=== PATIENT | female | born 1960 | race Two or more races ===

== ENCOUNTER 2017-05-21 11:45 | Emergency (ER) | payer OTHER ==
[~2017-05-21] VITALS: Ht 160 cm; Wt 65.8 kg
[2017-05-21] MEDS ORDERED: SODIUM CHLORIDE 0.9% 1,000 ML IV ONE (12:08)
[2017-05-21 13:08] LABS: Basophils # (auto) 0 uL; Basophils % (auto) 0.3 % (0.0-2.0); Eosinophils # (auto) 0.1 uL; Eosinophils % (auto) 1.2 % (0.0-7.0); Hematocrit 37.1 % (36.0-46.0); Hemoglobin 12.5 g/dL (12.2-16.2); Lymphocytes # (auto) 1.6 uL; Lymphocytes % (auto) 22.3 % (10.0-50.0); Mean Corpuscular Hemoglobin 29.9 pg (28.0-32.0); Mean Corpuscular Hgb Conc. 33.6 g/dL (32.0-36.0); Mean Platelet Volume 10.1 fL (6.9-10.8); Monocytes # (auto) 0.4 uL; Monocytes % (auto) 5.9 % (0.0-12.0); Neutrophils # (auto) 4.9 uL; Neutrophils % (auto) 70.3 % (37.0-80.0); Platelet Count (auto) 200 10^3/uL (140-450); Red Cell Distribution Width 13.6 % (11.8-14.3)
[2017-05-21 13:33] LABS: Albumin 3.4 g/dL (3.4-5.0); BUN/Creatinine Ratio 12.2; Bilirubin, Total 0.4 mg/dL (0.2-1.0); Calcium 8.4 mg/dL (8.5-10.1); Magnesium 2.2 mg/dL (1.6-2.6); Potassium 4.7 mmol/L (3.5-5.1); Total Protein 6.9 g/dL (6.4-8.2)
[2017-05-21 14:27] VITALS: BP 115/75
== END 2017-05-21 15:10 | disposition home or self-care (01) ==
LOC: ER 11:45
DX: J20.9 Acute bronchitis, unspecified (principal); R55 Syncope and collapse; R42 Dizziness and giddiness
CPT/HCPCS: 36415; 71010; 80053; 83735; 85025; 93005; 94761; 96360

== ENCOUNTER 2019-11-22 00:35 | Inpatient (IN) | payer MEDICAID, OTHER ==
[~2019-11-22] VITALS: Ht 154.9 cm; Wt 82.4 kg
[2019-11-22] VITALS (28 sets, daily range): BP systolic 93–129; BP diastolic 52–74
[2019-11-22 02:35] LABS: Basophils # (auto) 0 10 ^3/uL (0-0.2); Basophils % (auto) 0.2 % (0.0-2.0); Eosinophils # (auto) 0 10 ^3/uL (0-0.8); Eosinophils % (auto) 0.1 % (0.0-7.0); Hematocrit 38.6 % (36.0-46.0); Hemoglobin 12.9 g/dL (12.2-16.2); Lymphocytes # (auto) 1.5 10 ^3/uL (0.4-5.4); Lymphocytes % (auto) 25.3 % (10.0-50.0); Mean Corpuscular Hemoglobin 29.3 pg (28.0-32.0); Mean Corpuscular Hgb Conc. 33.3 g/dL (32.0-36.0); Monocytes # (auto) 0.6 10 ^3/uL (0-1.3); Monocytes % (auto) 10.3 % (0.0-12.0); Neutrophils # (auto) 3.7 10 ^3/uL (1.6-8.6); Neutrophils % (auto) 64.1 % (37.0-80.0); Nucleated Red Blood Cells % 0.1 %; Platelet Count (auto) 182 10^3/uL (140-450); Red Blood Cells 4.39 10^6/uL (4.0-5.20); Red Cell Distribution Width 14.4 % (11.8-14.3); White Blood Cell 5.7 10^3/uL (4.4-10.8)
[2019-11-22 02:38] LABS: Albumin 3.2 g/dL (3.4-5.0); BUN/Creatinine Ratio 15.7; Calcium 8.4 mg/dL (8.5-10.1); Potassium 4.1 mmol/L (3.5-5.1)
[2019-11-22 02:41] LABS: Bilirubin, Total 0.6 mg/dL (0.2-1.0); Total Protein 7.5 g/dL (6.4-8.2)
[2019-11-22] MEDS ORDERED: methylPREDNISolone SOD SUCC 125 MG/2 ML VL IV ONE (02:45)
[2019-11-22] MEDS ORDERED: cefTRIAXone 1GM/50ML D5W 50 ML IV ONE (02:45)
[2019-11-22] MEDS ORDERED: AZITHROMYCIN 500MG/ 250ML 250 ML IV ONE (02:45)
[2019-11-22] MEDS ORDERED: SODIUM CHLORIDE 0.9% 1,000 ML IV ONE (03:00)
[2019-11-22] MEDS ORDERED: dilTIAZem 25 MG/5 ML VIAL IV ONE (03:15)
[2019-11-22] MEDS ORDERED: dilTIAZem HCL 60 MG TAB PO ONE (03:15)
[2019-11-22] MEDS ORDERED: SODIUM CHLORIDE 0.9% 1,000 ML IV SCH (06:30)
[2019-11-22] MEDS ORDERED: ALBUMIN 5% 250 ML IV ONE (06:30)
[2019-11-22] MEDS ORDERED: ONDANSETRON HCL 4 MG/2 ML VIAL IV PRN (06:30)
[2019-11-22 07:03] LABS: Magnesium 2.3 mg/dL (1.6-2.6)
[2019-11-22 07:12] LABS: CRP High Sensitivity 13.5 mg/dL (< 0.3)
[2019-11-22] MEDS ORDERED: PANTOPRAZOLE 40 MG TAB PO ONE (07:15)
[2019-11-22] MEDS ORDERED: NITROGLYCERIN 0.4 MG SL TAB SL PRN (07:15)
[2019-11-22] MEDS ORDERED: MORPHINE SULF INJ 2 MG/ML SYRINGE 1ML IV PRN (07:15)
--- NOTE | 2019-11-22 09:40 | NUR ---
Telemetry admit from ER SYLVIA HARVEY admitted to Telemetry unit after SBAR received. Patient oriented to ARTIS ARTIS RN primary RN, unit, room, bed, and unit policies regarding patient care and visiting hours. Patient now on continuous telemetry monitoring, tele box # 14 and telemetry reading on arrival to unit is SR. Patient placed on bedside oxygen, weighed by bedscale and encouraged to call if they need something. All questions and concerns addressed, patient verbalized understanding.
[2019-11-22] MEDS ORDERED: DOXYCYCLINE 100MG/250ML 250 ML IV SCH (10:00)
[2019-11-22] MEDS ORDERED: ENOXAPARIN SOD 40 MG/0.4 ML SYRINGE SC SCH (10:00)
[2019-11-22] MEDS ORDERED: FAMOTIDINE 20 MG TAB PO SCH (10:00)
[2019-11-22] MEDS: CHOLECALCIFEROL (VITD3) 1,000UNIT=25mCg TAB PO SCH (11:14)
[2019-11-22] MEDS: ASCORBIC ACID 1,000 MG TAB PO SCH (11:14)
--- NOTE | 2019-11-22 11:45 | NUR ---
COVID Received positive results for covid-19. Notified MD Conner, new orders received. Orders read back and verified, will carry out new orders and cont to monitor patient.
--- NOTE | 2019-11-22 13:15 | NUR ---
PLACED PT ON OXYMIZER 15LPM, HR 96, RR 24, SPO2 92%. NOTIFIED RN OF CHANGES. ABG DRAWN, RESULTS TO FOLLOW. MDI BREATHING TX ADMINISTERED, NO ADVERSE REACTIONS NOTED.
[2019-11-22] MEDS ORDERED: methylPREDNISolone SOD SUCC 40 MG/ML VL IV ONE ×2 (13:30)
[2019-11-22] MEDS ORDERED: diphenhdrAMINE HCL 50 MG/1 ML VL IV ONE (13:30)
[2019-11-22] MEDS: ALBUTEROL SULF HFA 90MCG INH 200DOSE IN SCH ×2 (13:30→20:55)
[2019-11-22] MEDS ORDERED: TOCILIZUMAB 400 MG in SODIUM CHL 0.9% 80 ML IV ONE (13:30)
[2019-11-22] MEDS ORDERED: ACETAMINOPHEN 650 mg PER 20 mL UD PO ONE (13:30)
--- NOTE | 2019-11-22 13:50 | NUR ---
O2 Patient o2 saturations down to mid 80's despite 15L/min O2 Replacement. Called MD Conner to notify, per MD order stat ABG and call MD Breen, This nurs called MD Breen and updated him on patient status. Per MD Breen, place patient on non-rebreather mask, obtain ABG, Chest X-ray, actemra, remdesivir, solumedrol, and upgrade patient either to CHAR or ICU for high flow oxygen. Orders read back and verified, Obtained consent from MD Heck for Actemra and Remdesivir. Will carry out new orders and cont to monitor patient. Paged house sup regarding upgrade. Pending bed assignment at this time. Patient stable for now, premedicated for first dose of actemra and o2 sat is at 92 HR 105 RR 26.
[2019-11-22] MEDS ORDERED: REMDESIVIR 200 MG in NS 210ml LOADING DOSE ADULT IV ONE (17:00)
--- NOTE | 2019-11-22 17:09 | NUR ---
MD MD Conner at bedside, aware of patient status. New orders to DC Fluids received. Report called and endorsed to [facility] JHON White.
--- NOTE | 2019-11-22 17:24 | NUR ---
Transferred Patient transported to [facility] with JHON White. Patient taken via wheelchair on 15 L Oxymizer. Patient showed no signs of distress, sob, or pain at this time.
--- NOTE | 2019-11-22 17:25 | NUR ---
PATIENT TRANSFERRED VIA WHEEL CHAIR TO ROOM 262 [facility]. PATIENT IS ALERT AND ORIENTED. VITAL SIGNS STABLE, CALL LIGHT IN REACH, BED IN LOW POSITION. PATIENT PLACED ON HIGH FLOW BY RESPIRATORY PER MD ORDER SATURATIONS 91%. WILL CONTINUE TO MONITOR.
--- NOTE | 2019-11-22 17:25 | NUR ---
PT ARRIVED TO [facility] AND HAS BEEN PLACED ON HFNC WITH SETTINGS OF 70% FIO2 AND 40L FLOW. SPO2 SUSTAINED AT 91-92%. WATER LEVEL ADEQUATE FOR HEATED HUMIDIFICATION. WILL CONTINUE TO MONITOR PT AND ADJUST SETTINGS NEEDED.
--- NOTE | 2019-11-22 18:06 | NUR ---
RENDESIVIR MEDICATION STARTED PER MD ORDER AND PROTOCOL. CONSENT SIGNED BY PATIENT AND REVIEWED WITH NANCY BRIDGES RN AND ARTIS FERREIRA FROM TELEMETRY FLOOR IN [place]. PATIENT GIVEN [place] CONSENT TO REVIEW. PHARMACY GIVEN COPY AND ON PLACED IN CHART.
--- NOTE | 2019-11-22 18:15 | NUR ---
15 MINUTES INTO RENDESIVIR IVPB AND PATIENT HAS HAD NO NOTED ADVERSE REACTION. WILL CONTINUE TO MONITOR.
--- NOTE | 2019-11-22 19:00 | NUR ---
Opening Shift Note Assumed care of patient, awake and alert. No S/S of distress/SOB or pain. Instructed on POC and to call for assist PRN, will continue to monitor for changes Q1hr and PRN.
[2019-11-22] MEDS: DOXYCYCLINE 100 MG TAB/CAP PO SCH (20:55)
[2019-11-22] MEDS: methylPREDNISolone SOD SUCC 40 MG/ML VL IV SCH (20:55)
[2019-11-22] MEDS: ENOXAPARIN SOD 60 MG/0.6 ML SYRINGE SC SCH (20:56)
[2019-11-22] MEDS ORDERED: hydrOXYchloroQUINE SULFATE 200 MG TAB PO SCH (22:00)
--- NOTE | 2019-11-22 22:08 | NUR ---
FIO2 TITRATED TO 60%. SPO2 REMAINS AT 98%. MDI ADMINISTERED BY JHON SARAVIA WITH HOLDING CHAMBER.
[2019-11-23] VITALS (29 sets, daily range): BP systolic 90–116; BP diastolic 47–66
[2019-11-23 05:00] LABS: Basophils # (auto) 0 10 ^3/uL (0-0.2); Basophils % (auto) 0.1 % (0.0-2.0); Eosinophils # (auto) 0 10 ^3/uL (0-0.8); Lymphocytes # (auto) 1.2 10 ^3/uL (0.4-5.4); Lymphocytes % (auto) 18.7 % (10.0-50.0); Mean Corpuscular Hemoglobin 30.1 pg (28.0-32.0); Mean Corpuscular Hgb Conc. 34.3 g/dL (32.0-36.0); Monocytes # (auto) 0.5 10 ^3/uL (0-1.3); Monocytes % (auto) 7.3 % (0.0-12.0); Neutrophils # (auto) 4.8 10 ^3/uL (1.6-8.6); Neutrophils % (auto) 73.9 % (37.0-80.0); Nucleated Red Blood Cells % 0.1 %; Platelet Count (auto) 201 10^3/uL (140-450); Red Blood Cells 3.97 10^6/uL (4.0-5.20); Red Cell Distribution Width 14.5 % (11.8-14.3); White Blood Cell 6.6 10^3/uL (4.4-10.8)
[2019-11-23 05:21] LABS: Potassium 4.3 mmol/L (3.5-5.1)
[2019-11-23 05:31] LABS: Albumin 2.8 g/dL (3.4-5.0); BUN/Creatinine Ratio 15.7; Calcium 8.4 mg/dL (8.5-10.1)
[2019-11-23 05:39] LABS: Bilirubin, Total 0.3 mg/dL (0.2-1.0); Total Protein 6.6 g/dL (6.4-8.2)
[2019-11-23] MEDS: ALBUTEROL SULF HFA 90MCG INH 200DOSE IN SCH ×2 (06:00→22:26)
--- NOTE | 2019-11-23 07:45 | NUR ---
OPENING SHIFT NOTE: Received report from NOC RNWaldo. Assumed care of patient. Received patient resting in bed, connected to bedside monitor, alarms in place. Patient is on Novel Respiratory isolation for COVID-19. Patient is A&Ox4, primarily amharic speaking, understands little burmese. No s/s of distress noted and denies pain when asked. Patient on high flow O2 50L/80% lung sounds clear to diminished. Patient is using bedpan due to increased SOB with exertion. IV to left AC #20 with TKO NS at 20ml/hr. Bed in lowest position, rails x2 up and call light within reach. Updated on plan of care. Will continue to monitor q1hr/PRN.
--- NOTE | 2019-11-23 09:31 | NUR ---
T/C from Dr Breen. Orders received to add tests to morning labs. Will notify make up operator helper.
--- NOTE | 2019-11-23 10:45 | NUR ---
RT at bedside. Patient's O2 sats 88-89% on high flow 50L/80% fiO2, fiO2 increased to 100%. O2 sats 90-92%. RT to notify Dr Breen. Will continue to monitor.
[2019-11-23] MEDS: DOXYCYCLINE 100 MG TAB/CAP PO SCH ×2 (10:49→22:26)
[2019-11-23] MEDS: ENOXAPARIN SOD 60 MG/0.6 ML SYRINGE SC SCH ×2 (10:49→22:26)
[2019-11-23] MEDS: REMDESIVIR 100mg in NS 230ml DAILYx4DAYS (NO VENT) IV SCH (10:49)
[2019-11-23] MEDS: CHOLECALCIFEROL (VITD3) 1,000UNIT=25mCg TAB PO SCH (10:49)
[2019-11-23] MEDS: methylPREDNISolone SOD SUCC 40 MG/ML VL IV SCH ×2 (10:49→22:26)
[2019-11-23] MEDS: ASCORBIC ACID 1,000 MG TAB PO SCH (10:50)
--- NOTE | 2019-11-23 11:49 | NUR ---
MD Dr Adams at bedside. Updated on Dr Breen's orders. No new orders received.
[2019-11-23] MEDS ORDERED: methylPREDNISolone SOD SUCC 40 MG/ML VL IV ONE (12:30)
[2019-11-23] MEDS ORDERED: ACETAMINOPHEN 650 mg PER 20 mL UD PO ONE (12:30)
[2019-11-23] MEDS ORDERED: diphenhdrAMINE HCL 50 MG/1 ML VL IV ONE (12:30)
[2019-11-23] MEDS ORDERED: TOCILIZUMAB 400 MG in SODIUM CHL 0.9% 80 ML IV ONE (13:00)
--- NOTE | 2019-11-23 18:27 | NUR ---
RT NOTE ROUTINE HFNC CHECK. WATER LEVEL ADEQUATE. CONT ORDERED Addendum: 11/23/19 at 1914 by Wendy Stevens RT Amended: Links added.
[2019-11-23] MEDS ORDERED: guaiFENesin-DM 100/10mg/5ml SYR PO PRN (19:15)
--- NOTE | 2019-11-23 19:15 | NUR ---
END OF SHIFT NOTE: Report given to NOC RNCinyd. Endorsed care of patient. Patient remains on high flow at 50L 100% fiO2 with O2 sats 88%. Patient continues to use bedpan due to increasingly SOB with exertion.
--- NOTE | 2019-11-23 19:30 | NUR ---
OPENING NOTE REPORT RECEIVED FROM JHON CANNON PATIENT IS ON ISOLATION FOR COVID -19. PATIENT CONNECTED TO CONTINUOUS MONITORS, HEART RATE IN 80'S, SPO2 AT 89% ON HI FLOW OXYGEN 50L FIO2 100%. PATIENT IS PRIMARILY PANAMANIAN SPEAKING, ABLE TO VERBALIZE ALL NEEDS. IV TO RIGHT AC RUNNING NS TKO. PHYSICAL ASSESSMENT DONE-SEE INTERVENTIONS. POC DISCUSSED WITH PATIENT, ALL QUESTIONS ANSWERED. CALL LIGHT WITHIN REACH. EDUCATED PATIENT ON HOW TO USE PHONE TO CALL NURSES STATION.
--- NOTE | 2019-11-23 20:15 | NUR ---
BM/ DESAT PATIENT ASSISTED TO BEDSIDE COMMODE. PATIENT BEGAN TO DESAT INTO HIGH 70'S. PATIENT BACK IN TO BED, HI FLOW OXYGEN ADJUSTED TO 60L ON 100%FIO2. PATIENT EDUCATED TO TAKE LONG, DEEP BREATHS. PATIENT O2 LEVEL GRADUALLY CAME BACK UP TO 89% AND SUSTAINING. EDUCATED PATIENT THAT FROM NOW ON BEDPAN WILL BE USED TO DECREASE WORK OF BREATHING AND PREVENT DESATURATION. PATIENT VERBALIZED UNDERSTANDING
[2019-11-23] MEDS ORDERED: hydrOXYchloroQUINE SULFATE 200 MG TAB PO SCH (22:00)
[2019-11-24] VITALS (15 sets, daily range): BP systolic 98–129; BP diastolic 8–70
[2019-11-24] MEDS: TEMAZEPAM 15 MG CAP PO PRN ×2 (00:26→21:26)
--- NOTE | 2019-11-24 02:19 | NUR ---
DESATURATION PATIENT FOUND WITH HI FLOW CANNULA OFF. PATIENT BEGAN PANICKING, OXYGEN SATURATION LEVEL IN 60'S. RT BERNICE AT BEDSIDE TRYING TO CALM PATIENT DOWN AND PUT PATIENT BACK ON HI FLOW OXYGEN. BY THE TIME THIS RN ENTERED ROOM, PATIENT VISIBLY MORE CALM, HI FLOW OXYGEN NOW AT 65L FIO2 100%. OXYGEN STEADILY INCREASED TO 91%. PATIENT REPOSITIONED INTO HIGH FOWLERS. PATIENT NOW CALM, EYES CLOSED. PATIENT DENIES ANY PAIN OR DISTRESS AT THIS TIME. WILL CONTINUE TO MONITOR CLOSELY.
--- NOTE | 2019-11-24 02:25 | NUR ---
RT NOTE PT WAS OFF HFNC WHEN RT CAME TO ASSESS. RT AT PT BEDSIDE AFTER PROPER PPE DONNED. PT WAS THRASHING AROUND AND SAYING NO. IT APPEARS PT MAY HAVE HAD A BAD DREAM. RT WAS ABLE TO CALM PT AND PLACE O2 BACK ON PT. FLOW WAS INCREASED TO 65LPM, JHON AGUILLON AT BEDSIDE AND NOTIFIED. WATER LEVEL IS ADEQUATE AT THIS TIME. CONT ORDERED Addendum: 11/24/19 at 0246 by Wendy Stevens RT Amended: Links added.
--- NOTE | 2019-11-24 04:17 | NUR ---
PAGED RE: PATIENT DESATURATION, ON HI FLOW 70L AND FIO2 100%. SATURATION FLUCTUATING IN LOW 80'S. PATIENT DOES NOT APPEAR TO BE IN ANY DISTRESS AT THIS TIME WILL WAIT FOR CALL BACK
--- NOTE | 2019-11-24 04:27 | NUR ---
RT AT BEDSIDE PLACING PATIENT ON CPAP
--- NOTE | 2019-11-24 04:30 | NUR ---
RT NOTE PT PLACED ON CPAP #B1 WITH SMALL MASK PER DR REAL PROGRESS NOTES. DR REAL WAS PAGED BY JHON HODGSON. PT WAS HOVERING WITH SATS FROM 78-82 AT BEST ON 70L AND 100% HFNC. PT APPEARS TO TOLERATE CPAP WELL. WILL WEAN TOLERATED. POX INCREASED TO 92% ON CPAP. CONT ORDERED Addendum: 11/24/19 at 0453 by Wendy Stevens RT Amended: Links added.
[2019-11-24 04:36] LABS: Potassium 4.5 mmol/L (3.5-5.1)
[2019-11-24 04:40] LABS: Albumin 2.8 g/dL (3.4-5.0); BUN/Creatinine Ratio 22.5; Calcium 8.2 mg/dL (8.5-10.1)
[2019-11-24 04:43] LABS: Bilirubin, Total 0.4 mg/dL (0.2-1.0); Total Protein 6.3 g/dL (6.4-8.2)
--- NOTE | 2019-11-24 04:45 | NUR ---
CPAP PATIENT TOLERATING CPAP WELL. SPO2 NOW 90-92%.
--- NOTE | 2019-11-24 05:00 | NUR ---
AM CARE UNABLE TO GIVE PATIENT BED BATH DUE TO DESATURATION WITH ANY EXERTION. PATIENT UNABLE TO TOLERATE MOVEMENT AT THIS TIME. PATIENT ON CPAP AND TOLERATING WELL SHE SLEEPS. SPO2 AT 93% AT THIS TIME.
[2019-11-24] MEDS: ALBUTEROL SULF HFA 90MCG INH 200DOSE IN SCH ×3 (05:49→22:10)
--- NOTE | 2019-11-24 06:25 | NUR ---
RECEIVED PT FROM PROJECT FACILITATOR RT. PT IS ON BIPAP VISION B1 ON CPAP MODE, FITTED WITH SIZE SMALL FACIAL MASK. CHECKED SKIN INTEGRITY, REDNESS NOTED BUT NO BREAKDOWN. WILL PLACE PROTECTIVE GEL OVER NOSE. BREATH SOUNDS DIM WHEEZING BILATERALLY, MDI BREATHING TX WAS ADMINISTERED BY RN. ALARMS SET AND AUDIBLE. PT RESTING COMFORTABLY IN BED, TACHYPNEIC BUT NOT IN DISTRESS, SAYS SHE IS FEELING FINE. ATTEMPTED TO TITRATE FIO2 DOWN, BUT PT DESAT TO 89%. PLACED FIO2 BACK TO 100%, PT TOLERATING WITH SPO2 MAINTAINING AT 91-92%. WILL CONTINUE TO MONITOR.
--- NOTE | 2019-11-24 07:18 | NUR ---
CLOSING PATIENT ON CONTINUOUS MONITORS AND CPAP, SPO2 AT 92%, NO SIGNS OF RESPIRATORY DISTRESS NOTED. CARE ENDORSED TO DAYSHIFT JHON MORA. CALL LIGHT WITHIN REACH
--- NOTE | 2019-11-24 07:30 | NUR ---
OPENING SHIFT NOTE: Received report from NOC RNCindy. Assumed care of patient. Received patient resting in bed, connected to bedside monitor, alarms in place. Patient is on Novel Respiratory isolation for COVID-19. Patient is A&Ox4, primarily malawian speaking, understands little turkish. No s/s of distress noted and denies pain when asked. Patient on CPAP 12 fiO2 100%, lung sounds clear to diminished. Patient is using bedpan due to increased SOB with exertion. IV to left AC #20 is saline locked, flushes and is patent. Bed in lowest position, rails x2 up and call light within reach. Updated on plan of care. Will continue to monitor q1hr/PRN.
--- NOTE | 2019-11-24 08:38 | NUR ---
Called into patient room, patient had disconnected CPAP tubing from mask and machine. Reconnected tubing. O2 sats ~70% and patient tachypneic 40s. RN assisted to help calm patient down. RT soon at bedside. After ~5minutes O2 sats 95% and RR 20s. RT at bedside to try to connect patient back to high flow O2.
--- NOTE | 2019-11-24 08:45 | NUR ---
TOOK PT OFF CPAP AND PLACED ON HIGH FLOW NASAL CANNULA TO EAT BREAKFAST. ON SETTINGS 70LPM, FIO2 100%. HR 121, RR 36, SPO2 90%. RN AWARE OF CHANGES. WILL CONTINUE TO MONITOR.
--- NOTE | 2019-11-24 08:56 | NUR ---
T/C from Dr Breen. Updated MD on overnight events. Orders received.
--- NOTE | 2019-11-24 10:00 | NUR ---
CPAP PLACED PT BACK ON CPAP +[id number], FIO2 100%. ALARMS SET AND AUDIBLE. NO SKIN BREAKDOWN NOTED AT THIS TIME. ABG TO FOLLOW IN ONE HOUR. NOTIFIED RN OF CHANGES. WILL CONTINUE TO MONITOR.
[2019-11-24] MEDS: REMDESIVIR 100mg in NS 230ml DAILYx4DAYS (NO VENT) IV SCH (10:43)
[2019-11-24] MEDS: methylPREDNISolone SOD SUCC 40 MG/ML VL IV SCH ×2 (10:43→21:25)
[2019-11-24] MEDS: ENOXAPARIN SOD 60 MG/0.6 ML SYRINGE SC SCH ×2 (10:44→21:25)
--- NOTE | 2019-11-24 10:44 | NUR ---
MEDICATIONS Held 1000 oral medication due to CPAP. Will administer when patient is off CPAP eating lunch.
--- NOTE | 2019-11-24 11:10 | NUR ---
ASAD DRAWN, RESULTS REPORTED TO DR REAL.
--- NOTE | 2019-11-24 11:20 | NUR ---
MD Dr Breen at bedside. No new orders received.
--- NOTE | 2019-11-24 13:25 | NUR ---
TOOK PT OFF BIPAP TO EAT LUNCH, PLACED ON HIGH FLOW NASAL CANNULA, 60LPM, FIO2 100%. PT TOLERATING WELL, NO SKIN BREAKDOWN NOTED. HEATER WATER LEVEL ADEQUATE. HR , RR 26, SPO2 92%. MDI BREATHING TX ADMINISTERED, NO ADVERSE REACTIONS NOTED. BREATH SOUNDS DIMINISHED T/O. RN AT BEDSIDE ADMINISTERING MEDICATIONS, RN AWARE OF CHANGES. WILL CONTINUE TO MONITOR.
[2019-11-24] MEDS: ASCORBIC ACID 1,000 MG TAB PO SCH (13:30)
[2019-11-24] MEDS: DOXYCYCLINE 100 MG TAB/CAP PO SCH ×2 (13:30→21:26)
[2019-11-24] MEDS ORDERED: FUROSEMIDE 40 MG/4 ML VIAL IV ONE (13:30)
[2019-11-24] MEDS: CHOLECALCIFEROL (VITD3) 1,000UNIT=25mCg TAB PO SCH (13:30)
--- NOTE | 2019-11-24 15:50 | NUR ---
PT BACK ON CPAP PT DESATTING ON HFNC TO 77% WITH INCREASED WOB. PLACED PT BACK ON CPAP +[id number], FIO2 100%. PT TOLERATING WELL, NOW LAYING BACK IN BED WITH LESS WOB, TOLERATING WELL. HR 91, RR 24, SPO2 92%, BP 124/57. RN AT BEDSIDE AND AWARE OF CHANGES. WILL CONTINUE TO MONITOR.
--- NOTE | 2019-11-24 18:45 | NUR ---
Respiratory note: At bedside at this time, pt Urdu speaker. Pt was on cpap changed to HFNC to eat dinner. HFNC connected to red o2 and medical air wall source. Alarms are audible. Ambu bag and mask at bedside. Pt had to go pee before dinner, assisted pt to bedside commode and back to bed. Pt desated upon move back to bed, steadily increased again with coaching appropriate breathing techniques. No other changes made will continue to monitor.
--- NOTE | 2019-11-24 18:56 | NUR ---
END OF SHIFT NOTE: Report given to NOC RNNereida. Endorsed care of patient. Patient placed back on high flow at 70L 100% fiO2 with O2 sats 95%. Patient was able to use BSC today with minimal desaturation and was able to recover quickly. Patient has been alternating between CPAP and high flow for meals.
[2019-11-24] MEDS: ACETAMINOPHEN 325 MG TAB PO PRN (22:10)
--- NOTE | 2019-11-24 23:20 | NUR ---
Respiratory note: Paged to bedside. pt experiencing more episodes of desaturation. Communication with pts RN Nereida luther, agreed pt should be placed on cpap. Pox 84-86%. Entered room to place pt on cpap.
--- NOTE | 2019-11-24 23:20 | NUR ---
Respiratory note: Placed on bipap B1 unit, using cpap mode of [id number] as ordered. Unit connected to red outlet and o2 source alarms are se and audible, Ambu bag and mask a bedside. Bs are fine course. Will continue to monitor q2h and as needed. JHON Padron aware.
[2019-11-25] VITALS (13 sets, daily range): BP systolic 99–119; BP diastolic 56–70
--- NOTE | 2019-11-25 04:10 | NUR ---
Respiratory note: ENTERED PTS ROOM TO PLACE PT BACK ON HFNC FOR PT COMFORT. RN MATEO AWARE. WILL HAVE DAY SHIFT CONTINUE TO POC.
[2019-11-25] MEDS: ALBUTEROL SULF HFA 90MCG INH 200DOSE IN SCH ×3 (06:20→22:27)
--- NOTE | 2019-11-25 06:48 | NUR ---
Pt has remained stable this shift. Was able to be on high flow until approx 2300 and then placed on Cpap. Pt put back on high flow at 0430 and is tolerating well. No S/S of distress although needs time to recover after using BSC. Otherwise has remained stable.
[2019-11-25 07:40] LABS: BUN/Creatinine Ratio 31.6; Calcium 8.4 mg/dL (8.5-10.1); Potassium 3.8 mmol/L (3.5-5.1)
[2019-11-25 07:42] LABS: Bilirubin, Total 0.6 mg/dL (0.2-1.0); Total Protein 6.4 g/dL (6.4-8.2)
--- NOTE | 2019-11-25 08:30 | NUR ---
OPEN RECEIVED REPORT FROM NIGHT RN, MATEO. ASSUMED CARE OF CHAR PATIENT, FULL CODE STATUS. PATIENT + COVID, DROPLET ISOLATION AT THIS TIME. PATIENT A & O X4 CALM AND FOLLOWS COMMANDS. NO PAIN AT THIS TIME. PATIENT ON HIGH FLOW OXYGEN AT 70 LITERS, FIO2 AT 100% . PATIENT DE-SATS TO MID 70'S UPON EXERTION, ESPECIALLY WHEN USING BSC. WILL ENCOURAGE PATIENT TO USE BED [place], FOR FUTURE PLANS. PATIENT GIVEN BREAKFAST. SEE DISTRICT CUSTOMS DIRECTOR AND V/S FLOW SHEET FOR FURTHER PATIENT INFORMATION. SKIN REMAINS INTACT, PATIENT ABLE TO TURN SELF. IV TO RIGHT AC #20G PATENT, DRESSING CDI. WILL CONTINUE TO MONITOR.
[2019-11-25] MEDS: CHOLECALCIFEROL (VITD3) 1,000UNIT=25mCg TAB PO SCH (09:28)
[2019-11-25] MEDS: ENOXAPARIN SOD 60 MG/0.6 ML SYRINGE SC SCH ×2 (09:28→21:28)
[2019-11-25] MEDS: methylPREDNISolone SOD SUCC 40 MG/ML VL IV SCH ×2 (09:28→21:27)
[2019-11-25] MEDS: ASCORBIC ACID 1,000 MG TAB PO SCH (09:28)
[2019-11-25] MEDS: DOXYCYCLINE 100 MG TAB/CAP PO SCH ×2 (09:28→21:28)
[2019-11-25] MEDS: REMDESIVIR 100mg in NS 230ml DAILYx4DAYS (NO VENT) IV SCH (09:28)
--- NOTE | 2019-11-25 10:08 | NUR ---
DR. REAL AT BEDSIDE: ORDERS MD UPDATED ON PT'S STATUS, LABS AND POC FOR TODAY. CXR TAKEN EARLIER TODAY. MD SHOWN CXR AT THIS TIME. ORDERS GIVEN AND TO BE CARRIED OUT. MD AT PT'S BEDSIDE, ASSESSING PATIENT AT THIS TIME. WILL CONTINUE TO MONITOR.
[2019-11-25] MEDS ORDERED: FUROSEMIDE 40 MG/4 ML VIAL IV ONE (12:00)
--- NOTE | 2019-11-25 12:57 | NUR ---
DR. SOLO AT BEDSIDE: ORDERS MD UPDATED ON PT'S CURRENT STATUS, LABS, AND POC FOR TODAY. ORDERS GIVEN AND TO BE CARRIED OUT. WILL CONTINUE TO MONITOR. MD ASSESSING PATIENT AT BEDSIDE AT THIS TIME. PROPER PPE USED.
[2019-11-25] MEDS: POTASSIUM CHL 20 Meq TABLET PO SCH ×2 (13:26→21:28)
--- NOTE | 2019-11-25 14:42 | NUR ---
Nutrition Assessment Notes Please refer to link for full assessment notes. Est Energy needs: 2501-8602 kcals (20-23 kcal/kgBW) Est Protein needs: 50-62 gms/day (0.8-1.0 gm/kgBW) Will continue to monitor and reassess prn. Addendum: 11/25/19 at [address] Amended: Links added.
[2019-11-25] MEDS: FUROSEMIDE 40 MG/4 ML VIAL IV SCH (18:31)
--- NOTE | 2019-11-25 18:59 | NUR ---
RT NOTE ROUTINE HFNC CHECK DONE. CONT ORDERED Addendum: 11/25/19 at 1900 by Wendy Stevens RT Amended: Links added.
[2019-11-25] MEDS: TEMAZEPAM 15 MG CAP PO PRN (21:27)
[2019-11-25] MEDS: ACETAMINOPHEN 325 MG TAB PO PRN (22:29)
--- NOTE | 2019-11-25 22:47 | NUR ---
RT NOTE ROUTINE HFNC CHECK DONE. MDI GIVEN BY JHON GALINDO WITH OTHER NOC MEDS. Addendum: 11/26/19 at 0125 by Wendy Stevens RT Amended: Links added.
[2019-11-26] VITALS (12 sets, daily range): BP systolic 96–115; BP diastolic 43–69
--- NOTE | 2019-11-26 03:05 | NUR ---
RT NOTE ROUTINE HFNC CHECK DONE. WATER LEVEL IS AT HALF. CONT ORDERED Addendum: 11/26/19 at 0406 by Wendy Stevens RT Amended: Links added.
[2019-11-26 04:38] LABS: Basophils # (auto) 0 10 ^3/uL (0-0.2); Basophils % (auto) 0.2 % (0.0-2.0); Eosinophils # (auto) 0 10 ^3/uL (0-0.8); Hematocrit 41.1 % (36.0-46.0); Hemoglobin 13.9 g/dL (12.2-16.2); Lymphocytes # (auto) 0.6 10 ^3/uL (0.4-5.4); Lymphocytes % (auto) 5.9 % (10.0-50.0); Mean Corpuscular Hemoglobin 29.5 pg (28.0-32.0); Mean Corpuscular Hgb Conc. 33.7 g/dL (32.0-36.0); Mean Corpuscular Volume 87.4 fL (80.0-100.0); Monocytes # (auto) 0.4 10 ^3/uL (0-1.3); Monocytes % (auto) 3.4 % (0.0-12.0); Neutrophils # (auto) 9.9 10 ^3/uL (1.6-8.6); Neutrophils % (auto) 90.5 % (37.0-80.0); Nucleated Red Blood Cells % 0.1 %; Platelet Count (auto) 259 10^3/uL (140-450); Red Cell Distribution Width 14.3 % (11.8-14.3)
[2019-11-26 04:48] LABS: Potassium 4.3 mmol/L (3.5-5.1)
[2019-11-26 04:53] LABS: Albumin 2.9 g/dL (3.4-5.0); Bilirubin, Total 0.6 mg/dL (0.2-1.0); Calcium 8.4 mg/dL (8.5-10.1); Total Protein 6.5 g/dL (6.4-8.2)
[2019-11-26] MEDS: ALBUTEROL SULF HFA 90MCG INH 200DOSE IN SCH ×3 (05:50→22:01)
[2019-11-26] MEDS: FUROSEMIDE 40 MG/4 ML VIAL IV SCH ×2 (05:50→18:30)
[2019-11-26] MEDS: ACETAMINOPHEN 325 MG TAB PO PRN ×2 (05:51→21:44)
--- NOTE | 2019-11-26 06:42 | NUR ---
Pt has remained stable this shift. Has been on Hi Flow the entire shift and tolerated well with only a couple of periods of desating down to 82% for a short period of time. Uses bedside commode safely. IV remains patent. No S/S of distress although has periodic headaches. Tylenol appears to be adequate for the headache pain. Pt received a bed bath and linen change. Will give report to AM shift.
--- NOTE | 2019-11-26 07:45 | NUR ---
OPENING SHIFT NOTE: Received report from NOC RN, Nereida. Assumed care of patient. Received patient resting in bed, connected to bedside monitor, alarms in place. Patient is on Novel Respiratory isolation for COVID-19. Patient is A&Ox4, primarily telugu speaking, understands little citizen of [place]. No s/s of distress noted and denies pain when asked. Patient on Hi Flow 70L 100%, lung sounds clear to diminished. Patient is using BSC with minimal distress. IV to left AC #20 is saline locked, flushes and is patent. Bed in lowest position, rails x2 up and call light within reach. Updated on plan of care. Will continue to monitor q1hr/PRN.
--- NOTE | 2019-11-26 10:45 | NUR ---
MD Dr Breen at bedside to see patient.
[2019-11-26] MEDS: POTASSIUM CHL 20 Meq TABLET PO SCH ×2 (11:15→20:00)
[2019-11-26] MEDS: ASCORBIC ACID 1,000 MG TAB PO SCH (11:15)
[2019-11-26] MEDS: CHOLECALCIFEROL (VITD3) 1,000UNIT=25mCg TAB PO SCH (11:15)
[2019-11-26] MEDS: DOXYCYCLINE 100 MG TAB/CAP PO SCH ×2 (11:15→20:00)
[2019-11-26] MEDS: methylPREDNISolone SOD SUCC 40 MG/ML VL IV SCH ×2 (11:15→20:00)
[2019-11-26] MEDS: REMDESIVIR 100mg in NS 230ml DAILYx4DAYS (NO VENT) IV SCH (11:15)
[2019-11-26] MEDS: ENOXAPARIN SOD 60 MG/0.6 ML SYRINGE SC SCH ×2 (11:15→20:00)
--- NOTE | 2019-11-26 16:00 | NUR ---
MD Dr Adams to see patient. No new orders.
--- NOTE | 2019-11-26 18:56 | NUR ---
END OF SHIFT NOTE: Patient sitting up in bed eating dinner. Patient with no s/s of distress noted.Patient remains on hi flow at 60L 100% with O2 sats 96%. Patient is tolerating BSC with standby assist. Patient with IV to right AC #20 that is patent and flushes. Report to be given to NOC Nereida FERREIRA.
[2019-11-26] MEDS: TEMAZEPAM 15 MG CAP PO PRN (21:44)
[2019-11-27] VITALS (10 sets, daily range): BP systolic 91–124; BP diastolic 57–65
[2019-11-27 03:25] LABS: Basophils # (auto) 0 10 ^3/uL (0-0.2); Basophils % (auto) 0.1 % (0.0-2.0); Eosinophils # (auto) 0 10 ^3/uL (0-0.8); Hematocrit 43.7 % (36.0-46.0); Hemoglobin 14.6 g/dL (12.2-16.2); Lymphocytes # (auto) 0.7 10 ^3/uL (0.4-5.4); Lymphocytes % (auto) 5.9 % (10.0-50.0); Mean Corpuscular Hgb Conc. 33.4 g/dL (32.0-36.0); Mean Corpuscular Volume 86.9 fL (80.0-100.0); Monocytes # (auto) 0.4 10 ^3/uL (0-1.3); Monocytes % (auto) 3.8 % (0.0-12.0); Neutrophils # (auto) 10.1 10 ^3/uL (1.6-8.6); Neutrophils % (auto) 90.2 % (37.0-80.0); Nucleated Red Blood Cells % 0.1 %; Platelet Count (auto) 306 10^3/uL (140-450); Red Blood Cells 5.03 10^6/uL (4.0-5.20); Red Cell Distribution Width 14.5 % (11.8-14.3); White Blood Cell 11.2 10^3/uL (4.4-10.8)
[2019-11-27 03:44] LABS: Albumin 3.4 g/dL (3.4-5.0); Calcium 9.2 mg/dL (8.5-10.1); Potassium 4.7 mmol/L (3.5-5.1)
[2019-11-27 03:47] LABS: BUN/Creatinine Ratio 35.4; Bilirubin, Total 0.6 mg/dL (0.2-1.0); Total Protein 6.9 g/dL (6.4-8.2)
--- NOTE | 2019-11-27 05:57 | NUR ---
Respiratory note: RECEIVED PATIENT ON HFNC WITH THE ABOVE CHARTED SETTINGS. SPO2 91%. PATIENT IS RESTING COMFORTABLY AND TOLERATING HFNC WELL. NO INDICATION TO MAKE ANY ADJUSTMENTS AT THIS TIME. WILL CONTINUE TO ASSESS PATIENT FOR TITRATIONS.
[2019-11-27] MEDS: ALBUTEROL SULF HFA 90MCG INH 200DOSE IN SCH ×3 (06:27→22:50)
[2019-11-27] MEDS: FUROSEMIDE 40 MG/4 ML VIAL IV SCH (06:27)
--- NOTE | 2019-11-27 07:23 | NUR ---
Pt remained stable this shift. Seems to be doing better this shift compared to earlier this weekend. No S/S of distress. Report given, care endorsed.
--- NOTE | 2019-11-27 07:45 | NUR ---
OPENING SHIFT NOTE: Received report from NOC RNNereida. Assumed care of patient. Patient received lying in bed connected to bedside monitor with alarms in place. Patient with no s/s of distress and denies pain. Patient on high flow oxygen at 60L 100% with sats in the mids 90s. Patient with IV to right AC #20 that is saline locked and patent. Patient is getting up to BSC with stand by assist. Bed in lowest position, rails x2 up and call light within reach. Updated on plan of care. Will continue to monitor.
[2019-11-27] MEDS: POTASSIUM CHL 20 Meq TABLET PO SCH (09:54)
[2019-11-27] MEDS: methylPREDNISolone SOD SUCC 40 MG/ML VL IV SCH ×2 (09:54→21:58)
[2019-11-27] MEDS: DOXYCYCLINE 100 MG TAB/CAP PO SCH ×2 (09:54→21:58)
[2019-11-27] MEDS: CHOLECALCIFEROL (VITD3) 1,000UNIT=25mCg TAB PO SCH (09:55)
[2019-11-27] MEDS: ENOXAPARIN SOD 60 MG/0.6 ML SYRINGE SC SCH ×2 (09:55→21:58)
[2019-11-27] MEDS: ASCORBIC ACID 1,000 MG TAB PO SCH (09:55)
--- NOTE | 2019-11-27 13:30 | NUR ---
MD Dr Breen at bedside to see patient.
--- NOTE | 2019-11-27 15:00 | NUR ---
RT at bedside. Patient's O2 decreased to 50L 100%. Patient tolerating well.
--- NOTE | 2019-11-27 16:26 | NUR ---
MD Dr Adams at bedside to see patient. New orders received.
--- NOTE | 2019-11-27 18:51 | NUR ---
END OF SHIFT NOTE: Patient sitting up in bed eating dinner. Patient with no s/s of distress noted. Patient now on hi flow at 50L 100% with O2 sats 96%. Patient is tolerating BSC with standby assist. Patient with IV to right AC #20 that is patent and flushes. Report to be given to Santos GIL RN.
--- NOTE | 2019-11-27 19:10 | NUR ---
OPENING SHIFT RECEIVED REPORT FROM DAY SHIFT RN. ASSUMED CARE OF PATIENT. PATIENT IN BED RESTING WITH NO SIGNS OR SYMPTOMS OF SOB, PAIN OR DISTRESS. CURRENTLY ON HIGH FLOW NASAL CANNULA 50L / 100% FI02, 02 SAT - 93%. RIGHT ANTECUBITAL IV - CLEAN/DRY/INTACT. UPDATED PATIENT ON PLAN OF CARE. REPOSITIONED FOR COMFORT. BED IN LOWEST POSITION, SIDE RAILS UP X2, CALL LIGHT WITHIN REACH. WILL CONTINUE TO MONITOR.
--- NOTE | 2019-11-27 21:30 | NUR ---
IV REMOVED / IV INSERTED PATIENT COMPLAINING OF TENDERNESS AND PAIN IN RIGHT ANTECUBITAL IV; IV REMOVED - CATHETER INTACT. RIGHT WRIST 20G IV INSERTED. PATIENT TOLERATED WELL. WILL CONTINUE TO MONITOR.
[2019-11-27] MEDS: TEMAZEPAM 15 MG CAP PO PRN (22:47)
[2019-11-28] VITALS (12 sets, daily range): BP systolic 90–108; BP diastolic 54–68
[2019-11-28 04:01] LABS: Albumin 3.1 g/dL (3.4-5.0); BUN/Creatinine Ratio 39.2; Calcium 8.8 mg/dL (8.5-10.1); Potassium 4.8 mmol/L (3.5-5.1)
[2019-11-28 04:08] LABS: Bilirubin, Total 0.7 mg/dL (0.2-1.0); Total Protein 6.6 g/dL (6.4-8.2)
--- NOTE | 2019-11-28 05:55 | NUR ---
MORNING CARE PERFORMED MORNING CARE WITH CCT. PATENT BATHED WITH CHG WIPES AND WASH CLOTHS TO THE FACE. PARTIAL LINEN CHANGE AND GOWN CHANGED. ORAL AND LAM CARE PERFORMED. REPOSITIONED FOR COMFORT, SKIN REASSESSED AT THIS TIME. BED IN LOWEST POSITION, SIDE RAILS UP X2. CALL LIGHT WITHIN REACH. WILL CONTINUE TO MONITOR.
[2019-11-28] MEDS: ALBUTEROL SULF HFA 90MCG INH 200DOSE IN SCH ×3 (06:19→22:56)
--- NOTE | 2019-11-28 07:23 | NUR ---
END OF SHIFT REPORT GIVEN TO DAY SHIFT RN. CARE ENDORSED.
--- NOTE | 2019-11-28 07:50 | NUR ---
OPENING Report received from Santos GIL RN. Care initiated and initial assessment complete.
--- NOTE | 2019-11-28 09:55 | NUR ---
EPISODE OF EPISTAXIS Patient briefly bleeding from her nose. Bleeding stopped shortly after start. Provided patient with tissues and education. Called RT to the bedside.
[2019-11-28] MEDS ORDERED: POTASSIUM CHL 10 Meq TABLET PO SCH (10:00)
[2019-11-28] MEDS ORDERED: FUROSEMIDE 40 MG/4 ML VIAL IV SCH (10:00)
--- NOTE | 2019-11-28 10:00 | NUR ---
RT BEDSIDE Patient refused to go on BiPap to alleviate her nose. Patient understands high flow can cause nose bleeds. Per the RT she educated patient on turning herself and pronating, however, patient feels too weak and does not want to pronate d/t fears of being pronated by herself in her room.
[2019-11-28] MEDS: methylPREDNISolone SOD SUCC 40 MG/ML VL IV SCH ×2 (10:48→21:08)
[2019-11-28] MEDS: DOXYCYCLINE 100 MG TAB/CAP PO SCH ×2 (10:48→21:07)
[2019-11-28] MEDS: CHOLECALCIFEROL (VITD3) 1,000UNIT=25mCg TAB PO SCH (10:49)
[2019-11-28] MEDS: ENOXAPARIN SOD 60 MG/0.6 ML SYRINGE SC SCH ×2 (10:49→21:07)
[2019-11-28] MEDS: ASCORBIC ACID 1,000 MG TAB PO SCH (10:49)
--- NOTE | 2019-11-28 14:10 | NUR ---
PRONATING Patient pronating herself. Assessed patients comfort states, she states she is doing okay. No s/s of distress noted.
--- NOTE | 2019-11-28 14:28 | NUR ---
Nutrition Followup Note Wt: 60.4 kg Pt`s covid +ve unable to talk to pt. pt is currently on regular diet with inadequate PO of 50% x 5 per RN doc Est Energy needs: 1306-0858 kcals (20-23 kcal/kgBW), Est Protein needs: 50-62 gms/day (0.8-1.0 gm/kgBW). Will continue to monitor and reassess prn. Labs: BUN 38 H, CO2 34 H, ALB 3.1 L, GLU 166 H BM: Pt had 1 BM on 11/20 per RN doc Skin: BS 20 low risk, full wound care details in RN doc PES: 1) Inadequate oral intake aeb pt with ave of 38% PO intake over 4 meals r/t pt with a poor appetite 2) Altered nutrition related lab values aeb hyperglycemia, hypocalcemia, elev LFTs, elev Alk Phos, mod hypoalbuminemia r/t current medical condition Comments Will continue to closely monitor pertinent labs, PO intake and skin status prn. Will followup in 3-5 days 1) Continue to closely monitor pt PO intake to meet at least 75% of meals. 2) consider ensure enlive 1 carton bid if PO continues to be low. 3) Continue current plan of care
--- NOTE | 2019-11-28 19:30 | NUR ---
OPENING NOTE REPORT RECEIVED FROM DAYSHIFT RN PATIENT IS A/OX4, SITTING COMFORTABLY IN BED. PATIENT IS ON HI FLOW OXYGEN AT 50L, FIO2 100%. CURRENT SPO2 92%, PATIENT DOES NOT APPEAR SOB OR IN DISTRESS AT THIS TIME. PATIENT IS CONNECTED TO CONTINUOUS MONITOR. PHYSICAL ASSESSMENT DONE-SEE INTERVENTIONS. IV NOTED TO RIGHT WRIST, INTACT, PATENT AND SALINE LOCKED. POC DISCUSSED, ALL QUESTIONS ANSWERED. WILL MONITOR Q1H PRN THROUGHOUT SHIFT, CALL LIGHT WITHIN REACH.
--- NOTE | 2019-11-28 19:50 | NUR ---
at bedside discussing POC with patient
[2019-11-28] MEDS: ACETAMINOPHEN 325 MG TAB PO PRN (20:56)
[2019-11-29] VITALS (12 sets, daily range): BP systolic 96–110; BP diastolic 48–63
--- NOTE | 2019-11-29 04:00 | NUR ---
AM CARE PATIENT ABLE TO ASSIST ON WIPING SELF WITH CHG WIPES. PATIENT GIVEN COMPLETE LINEN CHANGE AND GOWN CHANGE PROVIDED BY JOHN HICKS. PATIENT TOLERATED WELL
[2019-11-29] MEDS: ALBUTEROL SULF HFA 90MCG INH 200DOSE IN SCH ×3 (06:30→22:26)
--- NOTE | 2019-11-29 07:29 | NUR ---
CLOSING PATIENT SITTING UP IN BED CONNECTED TO MONITORS, SPO2 AT 92% ON 50L HI FLOW, FIO2 100%. NO DISTRESS DURING SHIFT NOTED. CALL LIGHT WITHIN REACH CARE ENDORSED TO AM SHIFT JHON GARCIA
[2019-11-29] MEDS: DOXYCYCLINE 100 MG TAB/CAP PO SCH ×2 (08:57→22:30)
[2019-11-29] MEDS: ACETAMINOPHEN 325 MG TAB PO PRN ×2 (08:57→15:47)
[2019-11-29] MEDS: ASCORBIC ACID 1,000 MG TAB PO SCH (08:57)
[2019-11-29] MEDS: ENOXAPARIN SOD 60 MG/0.6 ML SYRINGE SC SCH ×2 (08:57→21:28)
[2019-11-29] MEDS: CHOLECALCIFEROL (VITD3) 1,000UNIT=25mCg TAB PO SCH (08:58)
[2019-11-29] MEDS: methylPREDNISolone SOD SUCC 40 MG/ML VL IV SCH (08:58)
[2019-11-29] MEDS ORDERED: FUROSEMIDE 40 MG/4 ML VIAL IV SCH (10:00)
--- NOTE | 2019-11-29 10:34 | NUR ---
PATIENT PLACED HER SELF IN PRONE POSITION. TOLERATING WELL, POX 92%.
--- NOTE | 2019-11-29 13:36 | NUR ---
RESTING PATIENT RESTING IN SEMI FOWLERS, WITH PHONE IN HAND. NO DISTRESS NOTED. POX 96% ST 103. WILL CONTINUE TO MONITOR.
[2019-11-29] MEDS: SODIUM CHLORIDE 0.9% 500 ML IV SCH ×3 (14:20→22:15)
--- NOTE | 2019-11-29 14:23 | NUR ---
ACTIVITY PATIENT OOB INTO CHAIR USING STANDBY ASSISTANCE DUE TO MULTIPLE WIRES. PATIENT TOLERATED WELL, MAINTAINING SATS ABOVE 93%. WILL CONTINUE TO MONITOR.
--- NOTE | 2019-11-29 14:45 | NUR ---
IV insertion IV access obtained, via clean sterile technique by inserting 20 gauge catheter at LEFT FOREARM after 1 attempt. IV secured properly. No trauma to site. Patient tolerated procedure well.
--- NOTE | 2019-11-29 15:00 | NUR ---
IV removal IV DC'd with sterile technique, catheter fully intact. Pressure dressing applied to site. Patient tolerated procedure well. Discharged with aftercare instructions per MD. NOTE:
--- NOTE | 2019-11-29 15:30 | NUR ---
Epistaxis Patient called stating she has a bloody nose. Care provided. Cool pack given to apply on bridge of nose. briefly bleeding from her nose. Patient educated on high flow and dry membranes that can be the cause. Humidifier in place. RT paged to notify.
--- NOTE | 2019-11-29 15:45 | NUR ---
Patient remains on high flow, no further bleeding noted. Will continue to monitor.
--- NOTE | 2019-11-29 16:05 | NUR ---
MD ROUNDS DR. REGAN AT BEDSIDE. SEE NEW ORDERS.
--- NOTE | 2019-11-29 16:06 | NUR ---
assessment Patient is a 59 year old female who is Mosotho speaking. Porter CAMPBELL2 translated for us. Prior to admission patient lived home with her and was independent. Patient has no need for DME. Patient see a PCP at a [facility]. Patient was brought to ER for shortness of breath and admitted to [facility] for covid 19 positive and acute respiratory failure. Patient is on high flow oxygen. Porter informed patient her post discharge needs to be determined prior to discharge. Patient will be assessed for oxygen needs by ABG prior to discharge. Patient will also be assessed by PT for any DME needs. Patient verbalized understanding. Addendum: 11/29/19 at 1610 by Jackelyn ZUÑIGA Amended: Links added.
--- NOTE | 2019-11-29 20:20 | NUR ---
PER REPORT, MD ORDER 500MLS OF NS ONLY THEN DC 500MLS IS DONE, IV LINE SALINE LOCKED
--- NOTE | 2019-11-29 21:10 | NUR ---
Epistaxis Patient having bleeding from her nose mostly from the left side. patient sat more upright. Pinch nose and asked patient to breath through the mouth. Saturation dropped to about 88%. Ice pack applied on bridge of nose and asked patient to hold for few more minutes. Bleeding stopped. RT paged. RT Tanya adjusted humidification to medium. Patient informed that the high flow oxygen can cause dryness. Patient cleaned. gown changed. will continue to monitor
--- NOTE | 2019-11-29 21:25 | NUR ---
PAGED/CALLED TALKED TO DR. ANDERSON ON THE PHONE. INFORMED OF THE EPISTAXIS EPISODE TONIGHT. PATIENT ALSO HAD ONE EPISODE IN THE AFTERNOON. BLEEDING STOPPED,RT HAS ADJUSTED HUMIDIFICATION FROM THE HIGH FLOW. ALSO INFORMED PATIENT IS ON LOVENOX FOR ELEVATED D-DIMER, POSITIVE COVID PATIENT. 1. DO CBC, BMP, PT/PTT IN AM 2. CAN HOLD LOVENOX TONIGHT, REVIEW IN AM
[2019-11-29] MEDS: DexAMETHasone SOD PHOS 4 MG/1ML SDV INJ IV SCH (22:30)
[2019-11-30] VITALS (11 sets, daily range): BP systolic 95–108; BP diastolic 49–63
--- NOTE | 2019-11-30 00:05 | NUR ---
PAIN COMPLAINED OF SORE THROAT ACCORDING TO THE CCT WHEN I WENT INSIDE THE ROOM PATIENT IS SLEEPING WILL CONTINUE TO MONITOR
[2019-11-30] MEDS: SODIUM CHLORIDE 0.9% 500 ML IV SCH ×4 (03:15→17:40)
[2019-11-30 03:43] LABS: Basophils # (auto) 0 10 ^3/uL (0-0.2); Basophils % (auto) 0.1 % (0.0-2.0); Eosinophils # (auto) 0 10 ^3/uL (0-0.8); Eosinophils % (auto) 0.1 % (0.0-7.0); Hematocrit 40.2 % (36.0-46.0); Hemoglobin 13.6 g/dL (12.2-16.2); Lymphocytes # (auto) 0.7 10 ^3/uL (0.4-5.4); Lymphocytes % (auto) 5.1 % (10.0-50.0); Mean Corpuscular Hemoglobin 29.4 pg (28.0-32.0); Mean Corpuscular Hgb Conc. 33.8 g/dL (32.0-36.0); Monocytes # (auto) 0.5 10 ^3/uL (0-1.3); Neutrophils # (auto) 11.9 10 ^3/uL (1.6-8.6); Neutrophils % (auto) 90.7 % (37.0-80.0); Platelet Count (auto) 259 10^3/uL (140-450); Red Blood Cells 4.62 10^6/uL (4.0-5.20); Red Cell Distribution Width 13.9 % (11.8-14.3); White Blood Cell 13.1 10^3/uL (4.4-10.8)
[2019-11-30 03:59] LABS: INR 1.21 (0.9-1.15); Partial Thromboplastin Time 23.9 sec (23.64-32.05)
[2019-11-30 04:10] LABS: Potassium 4.4 mmol/L (3.5-5.1)
[2019-11-30 04:15] LABS: BUN/Creatinine Ratio 31.7; Calcium 8.5 mg/dL (8.5-10.1)
[2019-11-30] MEDS: ALBUTEROL SULF HFA 90MCG INH 200DOSE IN SCH ×3 (07:06→20:38)
[2019-11-30] MEDS: ENOXAPARIN SOD 60 MG/0.6 ML SYRINGE SC SCH ×2 (10:00→20:39)
--- NOTE | 2019-11-30 10:25 | NUR ---
DR. REAL HERE TO SEE PATIENT. SEE MD NOTES AND EMR FOR ANY NEW ORDERS.
[2019-11-30] MEDS: DOXYCYCLINE 100 MG TAB/CAP PO SCH ×2 (11:09→20:39)
[2019-11-30] MEDS: ASCORBIC ACID 1,000 MG TAB PO SCH (11:09)
[2019-11-30] MEDS: DexAMETHasone SOD PHOS 4 MG/1ML SDV INJ IV SCH ×2 (11:09→20:39)
[2019-11-30] MEDS: CHOLECALCIFEROL (VITD3) 1,000UNIT=25mCg TAB PO SCH (11:09)
--- NOTE | 2019-11-30 20:30 | NUR ---
Dr. Arevalo on unit to round on pt. Pt stable at this time.
[2019-11-30] MEDS ORDERED: ZINC SULFATE 220mg CAP or TAB PO ONE (23:30)
[2019-11-30] MEDS: ACETAMINOPHEN 325 MG TAB PO PRN (23:54)
[2019-11-30] MEDS: TEMAZEPAM 15 MG CAP PO PRN (23:54)
[2019-12-01] VITALS (22 sets, daily range): BP systolic 69–161; BP diastolic 31–96
--- NOTE | 2019-12-01 | NUR ---
Lt forearm IV no longer patent. New IV started, 22g Rt forearm. Removed Lt forearm IV, canula intact. Pt tolerated removal of IV and insertion of new IV well. Stable at this time.
--- NOTE | 2019-12-01 02:12 | NUR ---
Sudden desat to 63%. No exertion by pt. Pt had not gotten out of bed and had been sleeping. When entered into pt's room she was at 65% and respirations at 50 per min. Pt was asked what had happened, she said she didn't know that suddenly she had a hard time breathing. RT at bedside and with RN and RT pt now at 88-90%. Currently at 70L and 100% FiO2. Will continue to monitor.
--- NOTE | 2019-12-01 02:54 | NUR ---
O2 sat 85-86% RT called, they will place pt on Cpap.
--- NOTE | 2019-12-01 03:06 | NUR ---
PT PLACED ON CPAP WITH 12 CMH2O AND 100% FIO2. HFNC SETTINGS HAD PREVIOUSLY BEEN INCREASED TO 70L FLOW WITH AN FIO2 OF 100% DUE TO SUSTAINED SPO2 OF 65%. SPO2 HAS SINCE INCREASED TO 91% WITH CPAP SETTINGS. JHON GALINDO IS AWARE.
[2019-12-01 03:31] LABS: Basophils # (auto) 0 10 ^3/uL (0-0.2); Basophils % (auto) 0.2 % (0.0-2.0); Eosinophils # (auto) 0.1 10 ^3/uL (0-0.8); Eosinophils % (auto) 0.7 % (0.0-7.0); Hematocrit 39.2 % (36.0-46.0); Hemoglobin 13.1 g/dL (12.2-16.2); Lymphocytes # (auto) 0.7 10 ^3/uL (0.4-5.4); Lymphocytes % (auto) 5.8 % (10.0-50.0); Mean Corpuscular Hemoglobin 29.2 pg (28.0-32.0); Mean Corpuscular Hgb Conc. 33.4 g/dL (32.0-36.0); Mean Corpuscular Volume 87.6 fL (80.0-100.0); Monocytes # (auto) 0.7 10 ^3/uL (0-1.3); Monocytes % (auto) 5.6 % (0.0-12.0); Neutrophils # (auto) 11.1 10 ^3/uL (1.6-8.6); Neutrophils % (auto) 87.7 % (37.0-80.0); Platelet Count (auto) 226 10^3/uL (140-450); Red Blood Cells 4.47 10^6/uL (4.0-5.20); Red Cell Distribution Width 14.1 % (11.8-14.3); White Blood Cell 12.6 10^3/uL (4.4-10.8)
[2019-12-01 03:57] LABS: Potassium 4.5 mmol/L (3.5-5.1)
[2019-12-01 04:04] LABS: Albumin 3.1 g/dL (3.4-5.0); BUN/Creatinine Ratio 28.9; Bilirubin, Total 0.6 mg/dL (0.2-1.0); Calcium 8.5 mg/dL (8.5-10.1)
--- NOTE | 2019-12-01 05:00 | NUR ---
Pt refusing Cpap at this time. Requesting time off and back on hi flow. RN put pt back on hi flow at 60L 100%FiO2. Will continue to monitor. Informed RT.
--- NOTE | 2019-12-01 06:12 | NUR ---
Pt on hi-flow at this time. Sat between 89-91%. Will continue to monitor.
[2019-12-01] MEDS: ALBUTEROL SULF HFA 90MCG INH 200DOSE IN SCH (06:55)
--- NOTE | 2019-12-01 07:30 | NUR ---
REPORT RECEIVED FROM THAD RNMATEO. PT IN ISOLATION + COVID. ABLE TO VISUALIZE PT THROUGH THE WINDOW. VSS. NO DISTRESS NOTED. CONTINUE TO MONITOR.
--- NOTE | 2019-12-01 08:25 | NUR ---
ASSESSENT PT IS ISOLATION FOR + COVID. PT MOSTLY MOSOTHO SPEAKING. A/O NX4. ABLE TO MAKE NEEDS KNOWN AND MY LIMITED MOSOTHO. LUNGS CLEAR AND DIMINISHED THROUGHOUT. ON HIGH FLOW O2 WITH 100% FIO2 AND [address] 122. ABD SOFT WITH + BOWEL SOUNDS., UPTO BSC AND VOIDED 275 CLEAR YELLOW URINE AND PASSED SCANT MOUNT OF SOFT BROWN BM. SKIN IS INTACT. ABLE TO REPOSITION SELF IN BED. DENIES ANY PAIN OR NAUSEA. CONTINUE TO MONITOR.
--- NOTE | 2019-12-01 10:30 | NUR ---
ASSESSED PT AND ADMINISTERED SCHEDULED MEDS. CONTINUE TO MONITOR.
[2019-12-01] MEDS: ASCORBIC ACID 1,000 MG TAB PO SCH (10:44)
[2019-12-01] MEDS: DexAMETHasone SOD PHOS 4 MG/1ML SDV INJ IV SCH (10:44)
[2019-12-01] MEDS: ZINC SULFATE 220mg CAP or TAB PO SCH (10:45)
[2019-12-01] MEDS: DOXYCYCLINE 100 MG TAB/CAP PO SCH (10:45)
[2019-12-01] MEDS: ENOXAPARIN SOD 60 MG/0.6 ML SYRINGE SC SCH (10:45)
[2019-12-01] MEDS: CHOLECALCIFEROL (VITD3) 1,000UNIT=25mCg TAB PO SCH (10:45)
[2019-12-01] MEDS: ACETAMINOPHEN 325 MG TAB PO PRN (12:06)
--- NOTE | 2019-12-01 13:45 | NUR ---
RETURNED FROM LUNCH AND WAS NOTIFIED BY FINISHING RANGE FEEDER, CHIQUIS, THAT PT HAD EXPERIENCED A NOSEBLEED WHILE I WAS GONE. THE BLEEDING IS STOPPED NOW. CONTINUE TO MONITOR.
--- NOTE | 2019-12-01 15:00 | NUR ---
PT EXPERIENCING MORE BLEEDING FROM HER NOSE. TIPPED HER HEAD BACK AND APPLIED PRESSURE O HER NOSE AND AFTER 10 MINUTES THE BLEEDING HAS STOPPED.
--- NOTE | 2019-12-01 15:46 | NUR ---
Nutrition Followup Note Wt: 60.5 kg Pt`s covid +ve unable to talk to pt. pt is currently on regular diet with adequate PO of 75% x 4 per RN doc Est Energy needs: 0867-4688 kcals (20-23 kcal/kgBW), Est Protein needs: 50-62 gms/day (0.8-1.0 gm/kgBW). Will continue to monitor and reassess prn. Labs: BUN 22 H, GLU 133 H, ALB 3.1 L. BM: Pt had 1 BM on 11/30 per RN doc Skin: BS 21 low risk, full wound care details in RN doc PES: 1) Inadequate oral intake aeb pt with ave of 38% PO intake over 4 meals r/t pt with a poor appetite 2) Altered nutrition related lab values aeb hyperglycemia, hypocalcemia, elev LFTs, elev Alk Phos, mod hypoalbuminemia r/t current medical condition Comments Will continue to closely monitor pertinent labs, PO intake and skin status prn. Will followup in 3-5 days 1) Continue to closely monitor pt PO intake to meet at least 75% of meals. 2) consider ensure enlive 1 carton bid if PO continues to be low. 3) Continue current plan of care
--- NOTE | 2019-12-01 16:00 | NUR ---
ROUNDS PT SEEN AND EXAMINED BY DR REAL. HE IS AWARE OF THE NOSE BLEEDING THAT PT IS HAVING THIS AFTERNOON. HE WOULD LIKE RT TO TRY YO PIT THE PT ON A NRB MASK AT 15 L TO SEE IF SHE COULD TOLERATE THAT. WILL NOTIFY RT AND PLACE ORDER. Addendum: 12/01/19 at 1942 by Emma Batista RN CLARIFICATION: CORRECT TIME FOR THIS NOTE SHOULD BE 9037
--- NOTE | 2019-12-01 17:59 | NUR ---
Respiratory note: RECEIVED PT ON NRB MASK AT 15L, ORDERED BY DR. REAL, DUE TO PT HAVING NOSE BLEEDS WHILE ON HFNC. PT SPO2 NOTED AT 92%, RR 30, HR 118. HFNC AND BIPAP IN PT'S ROOM ON STAND-BY. PT ON CONT BEDSIDE MONITORING, WILL CONTINUE TO MONITOR ORDERED.
--- NOTE | 2019-12-01 18:48 | NUR ---
Respiratory note: PAGED TO BEDSIDE. PT NOSE BLEEDING AND SATURATION NOTED AT 75%. PT TOOK NRB MASK OFF TO STOP BLEEDING. PT HAD HFNC ON RUNNING, PRONES NOTED IN MOUTH. GISSELLE HEATER ALARMING NO WATER, WATER TUBING NOTED TO BE CLAMPED. PT STATED "THE AIR FEELS COLD AND DRY". WATER FIXED, ALARM NO LONGER PRESENT. PT STATES THE AIR FEELS WARM AGAIN, HUMIDIFICATION INCREASED AND WANTS TO REMAIN ON HFNC. NOSE BLEEDING STOPPED. SPO2 IMPROVED TO 92% ON HFNC. PT WAS ORDERED TO REMAIN ON NRB MASK PER DR. REAL, IF SPO2 REMAINS AT 85% OR GREATER. DR. REAL NOTIFIED PT WAS PLACED BACK ON HIGH FLOW, STATES PT CAN REMAIN ON HIGH NASAL CANNULA TOLERATED. WILL CONTINUE TO MONITOR.
--- NOTE | 2019-12-01 19:20 | NUR ---
WHILE GIVING REPORT TO BOLT CUTTER RN, PT CALLED FOR ASSISTANCE. WHILE STAFF PUTTING ON PPE TO ENTER ROOM, PT'S HEART RATE UP INTO THE 160'S AND RR 40'S. PT NOTED TO HAVE MODERATE AMOUNT OF BLEEDING FROM PT'S NOSE. TRYING TO HOLD PRESSURE TO PT'S NOSE TO STOP BLEEDING, ALSO HOLDING HIGH FLOW O2 IN THE NOSE. OTHER STAFF INCLUDING DAVID RN, AND MASHA RT, AT THE BEDSIDE ,PLACED EMERGENCY PADS ON PT. CALLING DR REAL.
--- NOTE | 2019-12-01 19:30 | NUR ---
AFTER SPEAKING WITH DR REAL AND MAKING HIM AWARE OF THE SITUATION, HE HAS ARIVED IN THE CHAR AND IS EVALUATING THE PT AND DISCUSSING WITH HER THE NEED FOR INTUBATION.
[2019-12-01] MEDS ORDERED: SUCCINYLCHOLINE CHLORIDE 20 MG/ML 10ML VIAL IV ONE (19:32)
[2019-12-01] MEDS ORDERED: ETOMIDATE (2MG/ML) 20ML VIAL IV ONE (19:32)
[2019-12-01] MEDS ORDERED: ROCURONIUM 10MG/ML 10ML VIAL IV ONE (19:32)
--- NOTE | 2019-12-01 19:41 | NUR ---
CALLED AND SPOKE WITH PATIENTS DAUGHTER RE: WANTING TO SPEAK WITH PATIENTS . RECEIVED PHONE NUMBER FROM PATIENTS DAUGHTER
--- NOTE | 2019-12-01 19:42 | NUR ---
CALLED PATIENTS AND TRANSFERRED CALL INTO PATIENTS ROOM FOR TO SPEAK WITH FAMILY RE:INTUBATION
--- NOTE | 2019-12-01 20:05 | NUR ---
Respiratory note: PT INTUBATED BY DR. REAL VIA GLIDESCOPE. PT INTUBATED WITH A SIZE 7.5 ET TUBE SECURED WITH ASH AT 20 CM, CHEST XRAY REVIEWED BY DR. REAL, ET TUBE POSITION VERIFIED. PT NOTED TO HAVE A BLOODY NOSE PRIOR TO INTUBATION, LARGE AMOUNTS OF BLOOD NOTED DURING INTUBATION. PT PLACED ON VENT SETTINGS MENTIONED ABOVE. HIGH PEAK INSPIRATORY PRESSURES NOTED, DR. REAL AWARE. ABG TO FOLLOW IN 1 HOUR. PT BS CLEAR/DIMINISHED, SUCTIONED LARGE AMOUNTS OF THIN MAYA BLOOD. JHON SANTIAGO AT BEDSIDE. PT ON CONT BEDSIDE MONITORING, WILL CONTINUE TO MONITOR.
[2019-12-01] MEDS ORDERED: MIDAZOLAM DRIP 50 mg/50mL 50 ML IV ONE ×2 (20:06→23:16)
[2019-12-01] MEDS ORDERED: fentaNYL Drip 2500mCg/250mlNS 0 ML IV ONE ×2 (20:07→20:08)
[2019-12-01] MEDS: NOREPINEPHRINE 8 MG/250ML KIT 250 ML IV SCH (20:45)
[2019-12-01] MEDS ORDERED: PROPOFOL 0 ML IV ONE (20:50)
[2019-12-01] MEDS: PROPOFOL 100 ML IV SCH (20:50)
[2019-12-01] MEDS ORDERED: NOREPINEPHRINE 8 MG/250ML KIT 250 ML IV ONE (20:54)
--- NOTE | 2019-12-01 21:00 | NUR ---
NUT PROCESS HELPER, FROY, AT THE BEDSIDE AND GIVEN A REPORT. SHE WILL BE ASSUMING CARE OF THE PT UNTIL THE ROOM IS AVAILABLE IN ICU.
--- NOTE | 2019-12-01 21:30 | NUR ---
Respiratory note: ABG RESULTS REPORTED TO DR. REAL, NO VENT CHANGES MADE. NEW MED NEB TX ORDERS GIVEN. ABG TO FOLLOW IN 2 HOURS, WILL CONTINUE TO MONITOR.
--- NOTE | 2019-12-01 21:40 | NUR ---
RECEIVED A PHONE CALL FROM PT'S DAUGHTER, GURJIT. I ANSWERED HER QUESTIONS AND UPDATED HER ON THE PT'S CURRENT CONDITION AND POC. SHE ASKED ABOUT FACE TIMING WITH THE PT. I LET HER KNOW I WILL NEED TO CHECK WITH THE FIELD SERVICE POULTRY TECHNICIAN AND GET BACK TO HER. I SPOKE WITH THE FIELD SERVICE POULTRY TECHNICIAN, DORINA AND SHE STATED IT WOULD NOT BE POSSIBLE PT NOT ABLE TO GIVE HER AUTHORIZATION.. WILL NOTIFY HER DAUGHTER.
[2019-12-01] MEDS ORDERED: IPRATROPIUM BROM 0.5 MG/2.5ML INH SOL NEB SCH (22:00)
[2019-12-01] MEDS ORDERED: LEVALBUTEROL HCL 1.25 MG/3 ML NEB NEB SCH (22:00)
--- NOTE | 2019-12-01 22:01 | NUR ---
PT TO TRANSFER TO ROOM 105 IN ICU . REPORT CALLED TO RECEIVING RN
--- NOTE | 2019-12-01 22:08 | NUR ---
Received patient. Max dose of levophed, versed at 12mg, diprivan at 50 mcg, and fentanyl at 250. Unable to get sbp. Elevated heart rate in the 160S. Copious bloody secretions via the nares. Patient on 100 percent fio2 via the vent. Patient peak pressures in the 70s.
--- NOTE | 2019-12-01 22:10 | NUR ---
PT TRANSPORTED TO ROOM 105 BY BED WITH PORTABLE FORENSIC TOXICOLOGIST IN PLACE AND BEING MANUALLY VENTILATED. , ACCOMPANIED BY RT MASHA, AND CYRUS MCDUFFIE RN.
--- NOTE | 2019-12-01 22:15 | NUR ---
RT Transport Note: Patient transported to ICU BED 105 with JHON MCDUFFIE. Patient transported to ICU on ventilator with previous ordered settings. Patient on sizer hand with alarms set and audible, ambu-bag/mask/peep valve connected to 02 tank. Patient arrived to room with no adverse reaction noted. Transport completed without incident.
--- NOTE | 2019-12-01 22:24 | NUR ---
ORDERING STAT CBC DUE TO BLOOD SUCTIONED OUT OF NOSE AND THROAT FOR A TOTAL OF 500ML.
[2019-12-01] MEDS: ATRACURIUM BESYLATE 1,000 MG in D5W 5% 150 ML IV SCH (22:53)
[2019-12-01] MEDS: EPINEPHrine HCL 250 ML IV SCH (22:53)
[2019-12-01] MEDS ORDERED: METOPROLOL TARTRATE 1MG/1ML-5ML VIAL IV ONE (23:00)
[2019-12-01] MEDS: fentaNYL Drip 2500mCg/250mlNS 250 ML IV SCH (23:00)
[2019-12-01] MEDS ORDERED: VASOPRESSIN 50 UNITS in D5W 5% 247.5 ML IV SCH (23:00)
[2019-12-01] MEDS ORDERED: SODIUM CHLORIDE 0.9% 1,000 ML IV ONE (23:00)
--- NOTE | 2019-12-01 23:00 | NUR ---
Updated MD. Breen regarding patient condition. He recommends cxr in am, and am labs with abg.He recommends to start vasopressin shock protocol. He recommends that i can titrate versed to 15 and or fentanyl to 300 mcgs and if that does not work to try to paralyze the patient with atracurium with the train of four. He recommends one time one liter bolus. He recommends 5 mg lopressor if patient blood pressure has stabilized enough to address her heart rate. He also recommends scds. and caldwell catheter placement. Will follow orders and continue to closely monitor patient.
[2019-12-01] MEDS ORDERED: fentaNYL Drip 2500mCg/250mlNS 250 ML IV ONE (23:16)
[2019-12-01 23:17] LABS: Basophils # (auto) 0.1 10 ^3/uL (0-0.2); Basophils % (auto) 0.4 % (0.0-2.0); Eosinophils # (auto) 0 10 ^3/uL (0-0.8); Eosinophils % (auto) 0.1 % (0.0-7.0); Hemoglobin 13.4 g/dL (12.2-16.2); Lymphocytes # (auto) 1.2 10 ^3/uL (0.4-5.4); Lymphocytes % (auto) 5.1 % (10.0-50.0); Mean Corpuscular Hemoglobin 28.8 pg (28.0-32.0); Mean Corpuscular Hgb Conc. 31.9 g/dL (32.0-36.0); Mean Corpuscular Volume 90.3 fL (80.0-100.0); Monocytes # (auto) 2.3 10 ^3/uL (0-1.3); Monocytes % (auto) 9.4 % (0.0-12.0); Neutrophils # (auto) 20.7 10 ^3/uL (1.6-8.6); Platelet Count (auto) 269 10^3/uL (140-450); Red Blood Cells 4.65 10^6/uL (4.0-5.20); Red Cell Distribution Width 14.3 % (11.8-14.3); White Blood Cell 24.4 10^3/uL (4.4-10.8)
[2019-12-01] MEDS ORDERED: PROPOFOL 100 ML IV ONE (23:17)
[2019-12-01] MEDS ORDERED: VASOPRESSIN 20 UNIT/ML ONE (23:47)
[2019-12-02] VITALS (92 sets, daily range): BP systolic 81–141; BP diastolic 35–83
[2019-12-02] MEDS ORDERED: EPINEPHrine HCL 250 ML IV ONE
[2019-12-02] MEDS ORDERED: VASOPRESSIN 20 UNIT/ML ONE (02:25)
[2019-12-02] MEDS: DOXYCYCLINE 100 MG TAB/CAP PO SCH ×3 (02:56→22:00)
[2019-12-02] MEDS: DexAMETHasone SOD PHOS 4 MG/1ML SDV INJ IV SCH ×3 (02:56→22:00)
[2019-12-02] MEDS ORDERED: MIDAZOLAM DRIP 50 mg/50mL 50 ML IV SCH (02:57)
[2019-12-02] MEDS: ACETAMINOPHEN 325 MG TAB PO PRN ×3 (02:57→23:15)
[2019-12-02] MEDS ORDERED: VASOPRESSIN 50 UNITS in D5W 5% 247.5 ML IV SCH (03:00)
[2019-12-02] MEDS: MIDAZOLAM DRIP 50 mg/50mL 50 ML IV SCH (03:05)
[2019-12-02] MEDS: VASOPRESSIN 50 UNITS in D5W 5% 247.5 ML IV SCH ×2 (03:15→08:00)
[2019-12-02 04:48] LABS: Mean Corpuscular Volume 90.3 fL (80.0-100.0); Platelet Count (auto) 188 10^3/uL (140-450)
[2019-12-02 04:54] LABS: Hematocrit 33.6 % (36.0-46.0); Hemoglobin 10.9 g/dL (12.2-16.2); Mean Corpuscular Hemoglobin 29.3 pg (28.0-32.0); Mean Corpuscular Hgb Conc. 32.5 g/dL (32.0-36.0); Red Blood Cells 3.72 10^6/uL (4.0-5.20); Red Cell Distribution Width 14.2 % (11.8-14.3)
[2019-12-02 05:00] LABS: White Blood Cell 52.2 10^3/uL (4.4-10.8)
[2019-12-02 05:02] LABS: Band Neutrophils % (manual) 0; Basophils % (manual) 0 (0.0-2.0); Eosinophils % (manual) 0 (0-7); Metamyelocytes % 0; Myelocytes % 0
[2019-12-02 05:03] LABS: Blast Cells 0; Promyelocytes % 0; Reactive Lymphocytes 0
[2019-12-02 05:08] LABS: Albumin 2.6 g/dL (3.4-5.0); Calcium 7.3 mg/dL (8.5-10.1); Potassium 4.9 mmol/L (3.5-5.1)
[2019-12-02 05:09] LABS: BUN/Creatinine Ratio 29.2
[2019-12-02 05:13] LABS: Bilirubin, Total 0.5 mg/dL (0.2-1.0); Total Protein 5.1 g/dL (6.4-8.2)
--- NOTE | 2019-12-02 05:35 | NUR ---
Paged MD Breen regarding critical wbc
--- NOTE | 2019-12-02 05:48 | NUR ---
Paged md Breen. awaiting response
[2019-12-02] MEDS ORDERED: VANCOMYCIN PER PHARMACY 0 MG IV SCH (06:00)
[2019-12-02] MEDS ORDERED: VANCOMYCIN 1GM/250ML 250 ML IV ONE (06:15)
[2019-12-02] MEDS: PHENYLEPHRINE IV 250 ML IV SCH ×2 (06:26→14:18)
[2019-12-02] MEDS: PIPERACILLIN-TAZOB 3.375GM 100 ML IV SCH ×3 (06:26→18:17)
[2019-12-02 07:05] LABS: Lymphocytes % (manual) 5 (10.0-50.0); Monocytes % (manual) 3 (0-12)
--- NOTE | 2019-12-02 09:30 | NUR ---
CENTRAL LINE PLACEMENT/ A-LINE PLACEMENT AT BEDSIDE BOTH PLACED BY DR. REAL, CONSENTS SIGNED. PATIENT TOLERATED. LEFT IJ TLC PLACED. DRESSING CDI. RIGHT RADIAL A-LINE PLACED AND ZEROED AT THIS TIME. SEE V/S FLOW SHEET FOR FURTHER INFO. CONTINUE CARE. CXR TO BE TAKEN. OKAY TO USE.
--- NOTE | 2019-12-02 11:00 | NUR ---
DAUGHTER CALLED UPDATED HER ON PT'S STATUS, TX PLAN AND POC FOR TODAY. ALL QUESTIONS ANSWERED. INFORMED LINES HAVE BEEN PLACED. CONTINUE CARE.
[2019-12-02] MEDS: ZINC SULFATE 220mg CAP or TAB PO SCH (11:04)
[2019-12-02] MEDS: ASCORBIC ACID 1,000 MG TAB PO SCH (11:04)
[2019-12-02] MEDS: ENOXAPARIN SOD 40 MG/0.4 ML SYRINGE SC SCH (11:05)
[2019-12-02] MEDS: CHOLECALCIFEROL (VITD3) 1,000UNIT=25mCg TAB PO SCH (11:05)
--- NOTE | 2019-12-02 11:40 | NUR ---
VENT CHANGES PER DR. REAL PREVIOUS CXR RESULTS GIVEN TO DR. REAL. WILL MONITOR FOR SUB.Q EMPHYSEMA TO LEFT CHEST AREA, NONE NOTED EARLIER. VENT CHANGES TO AC RATE OF 16, PEEP DECREASED TO 10 +. CHANGES MADE BY R.T. CONTINUE CARE.
--- NOTE | 2019-12-02 12:00 | NUR ---
WOUND CARE NOTE: IN TO SEE PATIENT AT THIS TIME FOR SKIN INTEGRITY MONITORING. PATIENT WAS ADMITTED TO [facility] WITH DIAGNOSIS OF COVID 19, ACUTE RESPIRATORY FAILURE, HYPOXIA. CURRENT BETHANY SCORE IS 10. PATIENT IS INTUBATED, SEDATED, ON VASOPRESSORS. PER BESIDE NURSE, PATIENT IS TOO UNSTABLE FOR TURNING/REPOSITIONING. SHE IS RESTING ON REGULAR HOSPITAL BED. ADVISED BEDSIDE NURSE, THAT ONCE PATIENT BECOMES MORE STABLE, PATIENT NEEDS TO BE TRANSFERRED ONTO ICU LOW AIRLOSS BED. UNABLE TO ASSESS HER SKIN D/T HER INSTABILITY. SKIN/WOUND CARE PLAN IMPLEMENTED. PATIENT IS BEING FOLLOWED BY DIETARY. SHE WOULD BENEFIT FROM: FREQUENT TURN SCHEDULE Q 2 HOURS, PRN CONDITION PERMITS, WITH PRESSURE REDISTRIBUTION USING PILLOWS/WEDGES, BID/PRN APPLICATION MOISTURE BARRIER CREAM, OPTIFOAM GENTLE SACRAL DRESSING, DIETARY CONSULT (FOLLOWING), SKIN/WOUND CARE PLAN, PLACEMENT ON LOW AIRLOSS ICU BED WHEN POSSIBLE, CONTINUED MONITORING BY WOUND CARE TEAM.
--- NOTE | 2019-12-02 13:19 | NUR ---
DR. REAL IN. WITHDREW TRIPLE LUMEN 3CM. SITE COVERED WITH DRESSING USING STERILE TECHNIQUE. PCXR ORDERED FOR 1800. NO SUBQ EMPHYSEMA PALPATED IN UPPER CHEST AREA.
--- NOTE | 2019-12-02 14:45 | NUR ---
COOLING MEASURES APPLIED CURRENT TEMP 100.9 VIA RECTAL PROBE. ICE PACKS PLACED UNDER STELLA ARMS AND STELLA GROINS. PATIENT ALSO GIVEN TYLENOL 650 MG VIA OGT PER MD ORDER.CONTINUE CARE.
--- NOTE | 2019-12-02 15:05 | NUR ---
DR. REAL CALLED: ORDER RECEIVED CALLED AND INFORMED THAT HE TRIED TO CALL PATIENT'S FAMILY TO GIVE THEM AN UPDATE, BUT THEY DID NOT ANSWER. INFORMED DR. REAL THAT PATIENT'S CURRENT HR AT [address] ST. SBP IN THE MID . ORDERS TO GIVE X1 NS BOLUS 250 CC NOW. BOLUS GIVEN. CONTINUE CARE. Addendum: 12/02/19 at 1544 by Rosanna Wilson RN AFTER GIVING BOLUS, HR DECREASED TO 135 ST, SBP NOW 110/50 VIA A-LINE. CONTINUE CARE.
[2019-12-02] MEDS ORDERED: SODIUM CHLORIDE 0.9% 250 ML IV ONE (15:15)
--- NOTE | 2019-12-02 17:10 | NUR ---
FAMILY CALLED TALKED WITH PATIENT'S DAUGHTER, UPDATED HER ON PT'S STATUS THROUGHOUT THE DAY. ALL QUESTIONS ANSWERED. WILL CONTINUE TO MONITOR.
[2019-12-02 17:12] LABS: Hemoglobin 9.8 g/dL (12.2-16.2); Mean Corpuscular Hemoglobin 29.1 pg (28.0-32.0); Mean Corpuscular Hgb Conc. 32.8 g/dL (32.0-36.0); Mean Corpuscular Volume 88.6 fL (80.0-100.0); Platelet Count (auto) 201 10^3/uL (140-450); Red Blood Cells 3.39 10^6/uL (4.0-5.20); Red Cell Distribution Width 13.7 % (11.8-14.3)
--- NOTE | 2019-12-02 17:13 | NUR ---
CVP MONITORING SET UP AT THIS TIME CURRENT CVP LEVEL IS ABOUT 2-[address] REAL ON PT'S CVP LEVEL. WAITING FOR LABS ALSO TO COME BACK AT THIS TIME. CONTINUE CARE. Addendum: 12/02/19 at 1721 by Rosanna Wilson RN ORDERS GIVEN BY DR. REAL AT THIS TIME, FOR ANOTHER 500 CC NS BOLUS X1 NOW. BOLUS TO BE GIVEN. CONTINUE CARE. CURRENT HR 133, BP 107/52. CONTINUE CARE.
[2019-12-02 17:28] LABS: Calcium 7.6 mg/dL (8.5-10.1); Potassium 4.6 mmol/L (3.5-5.1)
[2019-12-02 17:29] LABS: White Blood Cell 38.1 10^3/uL (4.4-10.8)
[2019-12-02 17:30] LABS: Basophils % (manual) 0 (0.0-2.0); Blast Cells 0; Eosinophils % (manual) 0 (0-7); Myelocytes % 0; Promyelocytes % 0; Reactive Lymphocytes 0
[2019-12-02] MEDS ORDERED: SODIUM CHLORIDE 0.9% 500 ML IV ONE (17:30)
[2019-12-02 17:47] LABS: Band Neutrophils % (manual) 2; Lymphocytes % (manual) 11 (10.0-50.0); Metamyelocytes % 1; Monocytes % (manual) 5 (0-12)
[2019-12-02] MEDS: NOREPINEPHRINE 8 MG/250ML KIT 250 ML IV SCH (18:00)
--- NOTE | 2019-12-02 19:45 | NUR ---
Opening Shift Note: Patient is intubated/sedated. ET size 7.5/20 @ lip. Vent settings: AC rate 16; vT 350; FiO2 100%; PEEP 10. Patient intubated on 12/01/19. Neuro: pupils are 2mm/sluggish; flaccid extremities; hypoactive cough/gag. Cardio: ST 120s-140s; SBP 90s-120s; radial pulses present/palpable; DP pulses weak but present on palpation. Small amounts of blood suctioned from mouth; none from ET tube; packing in bilateral nares for previous epistaxis. OGT clamped. Last BM unknown. Landeros inserted on 12/01/19 for strict I/O. Skin intact. IVs: right wrist ART line inserted on 12/02/19; right forearm 22 g IID inserted on 12/01/19; left hand 20 g IID inserted on 12/02/19; left IJ TLC inserted on 12/01/19 running Levo @ 30; Aden @ 40; Vasopressin @ 0.07; Fent @ 125; Versed @ 10. Will continue to round/reposition/perform oral care PRN. ABG/CXR orders endorsed from day shift; will call Dr. Breen with results.
[2019-12-02] MEDS: PROPOFOL 100 ML IV SCH (20:50)
[2019-12-02 22:21] LABS: Urine Bacteria FEW /hpf (None Seen); Urine Blood 1+ /uL (Negative); Urine Mucus FEW (None Seen); Urine Specific Gravity 1.021 (1.001-1.035); Urine WBC 4 /hpf (0 - 5)
--- NOTE | 2019-12-02 22:30 | NUR ---
Call to Dr. Breen: Dr. Breen notified of ABG results and CXR. New orders received to change RR on vent from 16 to 22; give one amp of Bicarb STAT; and repeat ABG in 1 H.
[2019-12-02] MEDS: IPRATROPIUM BROM 0.5 MG/2.5ML INH SOL NEB SCH (22:32)
[2019-12-02] MEDS: LEVALBUTEROL HCL 1.25 MG/3 ML NEB NEB SCH (22:32)
[2019-12-02] MEDS ORDERED: SODIUM BICARBONATE 8.4 % INJ 50ML VIAL IV ONE ×2 (22:40→22:45)
[2019-12-02] MEDS: ATRACURIUM BESYLATE 1,000 MG in D5W 5% 150 ML IV SCH (22:53)
[2019-12-02] MEDS: EPINEPHrine HCL 250 ML IV SCH (22:53)
[2019-12-03] VITALS (93 sets, daily range): BP systolic 78–163; BP diastolic 43–101
[2019-12-03] MEDS: NOREPINEPHRINE 8 MG/250ML KIT 250 ML IV SCH ×2 (00:03→10:55)
--- NOTE | 2019-12-03 00:15 | NUR ---
Page to Dr. Breen: Dr. Breen notified of repeat ABG results; no vent setting changes at this time; new orders for ABG and CXR in AM
[2019-12-03] MEDS: PHENYLEPHRINE IV 250 ML IV SCH ×4 (03:00→23:34)
[2019-12-03] MEDS: MIDAZOLAM DRIP 50 mg/50mL 50 ML IV SCH ×3 (03:05→15:37)
[2019-12-03] MEDS: fentaNYL Drip 2500mCg/250mlNS 250 ML IV SCH ×2 (03:10→23:00)
--- NOTE | 2019-12-03 03:30 | NUR ---
Patient bathe/linen change Patient given complete CHG bath. Skin integrity assessed for any changes. Linens and gown changed. Patient repositioned for comfort.
--- NOTE | 2019-12-03 03:45 | NUR ---
Status Change: Upon reassessment of central line insertion, patient was noted to have increased swelling around insertion area. Upon palpation of the area, crepitus is noted around the left neck area/upper chest from breasts up. CXR changed to STAT; will page Dr. Breen as soon as CXR results come back.
[2019-12-03 04:28] LABS: Mean Corpuscular Hemoglobin 28.9 pg (28.0-32.0); Mean Corpuscular Hgb Conc. 32.6 g/dL (32.0-36.0); Mean Corpuscular Volume 88.7 fL (80.0-100.0)
[2019-12-03 04:29] LABS: Hematocrit 27.3 % (36.0-46.0); Hemoglobin 8.9 g/dL (12.2-16.2); Platelet Count (auto) 186 10^3/uL (140-450); Red Blood Cells 3.08 10^6/uL (4.0-5.20); Red Cell Distribution Width 13.7 % (11.8-14.3)
[2019-12-03 04:35] LABS: White Blood Cell 36.3 10^3/uL (4.4-10.8)
[2019-12-03 04:36] LABS: Basophils % (manual) 0 (0.0-2.0); Blast Cells 0; Eosinophils % (manual) 0 (0-7); Metamyelocytes % 0; Monocytes % (manual) 0 (0-12); Myelocytes % 0; Promyelocytes % 0; Reactive Lymphocytes 0
[2019-12-03 04:44] LABS: Albumin 2.4 g/dL (3.4-5.0); Calcium 7.6 mg/dL (8.5-10.1)
[2019-12-03 04:46] LABS: BUN/Creatinine Ratio 25.4; Bilirubin, Total 0.5 mg/dL (0.2-1.0); Total Protein 4.9 g/dL (6.4-8.2)
[2019-12-03] MEDS: ACETAMINOPHEN 325 MG TAB PO PRN (05:00)
[2019-12-03] MEDS: VASOPRESSIN 50 UNITS in D5W 5% 247.5 ML IV SCH ×2 (05:00→16:20)
[2019-12-03 05:03] LABS: Band Neutrophils % (manual) 6; Lymphocytes % (manual) 1 (10.0-50.0)
[2019-12-03] MEDS: PIPERACILLIN-TAZOB 3.375GM 100 ML IV SCH ×4 (05:34→18:25)
--- NOTE | 2019-12-03 06:17 | NUR ---
Page sent to Dr. Breen: CXR still pending result. Dr. Breen notified of status change but unable to communicate CXR results at this time. Message left for physician. Will await page return.
[2019-12-03] MEDS: IPRATROPIUM BROM 0.5 MG/2.5ML INH SOL NEB SCH ×3 (06:18→22:17)
[2019-12-03] MEDS: LEVALBUTEROL HCL 1.25 MG/3 ML NEB NEB SCH ×3 (06:18→22:17)
--- NOTE | 2019-12-03 06:55 | NUR ---
Dr. Breen at bedside
--- NOTE | 2019-12-03 07:30 | NUR ---
[facility] [employer] RE: CRITICAL CXR RESULTS - DR REAL AWARE AND AT BEDSIDE EXAMINING PATIENT - ORDERS RECEIVED PER DR REAL.
[2019-12-03] MEDS ORDERED: FUROSEMIDE 20 MG/2 ML VIAL IV ONE (08:15)
[2019-12-03] MEDS ORDERED: VANCOMYCIN 1GM/250ML 250 ML IV SCH (09:00)
--- NOTE | 2019-12-03 09:00 | NUR ---
PATIENT ON 100% FIO2 - NOT A CANDIDATE FOR SEDATION VACATION AT THIS TIME Addendum: 12/03/19 at 2133 by Monika Riley RN Amended: Links added.
[2019-12-03] MEDS: DexAMETHasone SOD PHOS 4 MG/1ML SDV INJ IV SCH ×2 (09:05→21:25)
[2019-12-03] MEDS: ENOXAPARIN SOD 40 MG/0.4 ML SYRINGE SC SCH (10:56)
[2019-12-03] MEDS: ZINC SULFATE 220mg CAP or TAB PO SCH (10:57)
[2019-12-03] MEDS: ASCORBIC ACID 1,000 MG TAB PO SCH (10:58)
[2019-12-03] MEDS: DOXYCYCLINE 100 MG TAB/CAP PO SCH ×2 (10:58→21:25)
[2019-12-03] MEDS: CHOLECALCIFEROL (VITD3) 1,000UNIT=25mCg TAB PO SCH (10:58)
--- NOTE | 2019-12-03 11:00 | NUR ---
Tableau Analyst gave oral care - patient's HR to 150's. Repositioning attempted - HR to 160 - sedation meds increased - see IV spreadsheet. Further repositioning held at this time.
[2019-12-03] MEDS: PROPOFOL 100 ML IV SCH ×2 (11:25→20:50)
--- NOTE | 2019-12-03 12:30 | NUR ---
Jeremiah SERNA visits - orders received.
--- NOTE | 2019-12-03 13:00 | NUR ---
Patient's daughter phones - updated on patient condition - states has questions for MD - senior writer informed her that message would be given to Dr Breen in regards to call her with more information.
--- NOTE | 2019-12-03 13:15 | NUR ---
Jewel Hole Cornerer phones Radiology with request to have CXR interpreted as a stat order.
[2019-12-03 15:20] LABS: Hematocrit 25.1 % (36.0-46.0); Red Cell Distribution Width 13.6 % (11.8-14.3)
[2019-12-03 15:22] LABS: Hemoglobin 8.3 g/dL (12.2-16.2); Mean Corpuscular Hgb Conc. 32.9 g/dL (32.0-36.0); Platelet Count (auto) 159 10^3/uL (140-450); Red Blood Cells 2.85 10^6/uL (4.0-5.20); White Blood Cell 25.6 10^3/uL (4.4-10.8)
[2019-12-03 15:33] LABS: Band Neutrophils % (manual) 0; Basophils % (manual) 0 (0.0-2.0); Blast Cells 0; Eosinophils % (manual) 0 (0-7); Metamyelocytes % 0; Myelocytes % 0; Promyelocytes % 0; Reactive Lymphocytes 0
[2019-12-03 15:38] LABS: CRP High Sensitivity 0.55 mg/dL (< 0.3); Magnesium 1.9 mg/dL (1.6-2.6)
[2019-12-03 15:41] LABS: % Iron Saturation 88.9 % (15-50)
--- NOTE | 2019-12-03 15:50 | NUR ---
Dr Cowart phones - updated on patient condition.
--- NOTE | 2019-12-03 15:53 | NUR ---
CXR report called to Dr Breen - message left on vm.
[2019-12-03 16:05] LABS: Lymphocytes % (manual) 3 (10.0-50.0); Monocytes % (manual) 1 (0-12)
--- NOTE | 2019-12-03 16:10 | NUR ---
Dr Breen phones, aware of CXR result- orders received. Addendum: 12/03/19 at 1635 by Monika Riley RN Dr Breen spoke with patient's daughter re: patient condition and POC.
[2019-12-03 16:25] LABS: Ferritin > 1650.0 ng/mL (10-322)
--- NOTE | 2019-12-03 16:25 | NUR ---
CARMITA DIAMOND PA VISITS AGAIN - ORDER RECEIVED.
--- NOTE | 2019-12-03 16:40 | NUR ---
Consent obtained from patient's via 3-way phone call with patient's daughter for possible chest tube placement if needed. Serbian speaking RN Lashawn explained need for consent - family verbalizes understanding and agreement.
--- NOTE | 2019-12-03 17:10 | NUR ---
DR Luis Miguel HAN VISITS - NO NEW ORDERS RECEIVED.
[2019-12-03 17:39] LABS: INR 1.31 (0.9-1.15)
[2019-12-03 17:41] LABS: Albumin 2.5 g/dL (3.4-5.0); BUN/Creatinine Ratio 15.5; Calcium 7.9 mg/dL (8.5-10.1); Potassium 3.9 mmol/L (3.5-5.1)
[2019-12-03 17:45] LABS: Bilirubin, Total 0.4 mg/dL (0.2-1.0); Lactic Acid w/Reflex 2.9 mmol/L (0.4-2.0); Total Protein 5.1 g/dL (6.4-8.2)
--- NOTE | 2019-12-03 18:23 | NUR ---
Coags,CMP, Prealbumin, lactic acid and d-dimer called to Jeremiah SERNA- no new orders received.
--- NOTE | 2019-12-03 18:25 | NUR ---
Call placed to Dr.L. Cowart re: elevated bld sugars, lactic acid and d-dimer.
--- NOTE | 2019-12-03 18:30 | NUR ---
Respiratory note: ASSESSMENT FOR INITIAL VENT CHECK, DONE AT BEDSIDE IN FULL PPE, RN ISAAC AT BEDSIDE TO ASSIST WITH ASH CHANGE. PT PRESENTING NO RESPIRATORY DISTRESS AT THIS TIME, VITALS STABLE. PT ON HEATED WIRE CIRCUIT ON VENT V21 WITH PROPER SETTINGS. VENT ALARMS ON AND AUDIBLE, VENT PLUGGED INTO RED OUTLET, AMBU BAG, MASK AND PEEP VALVE AT BEDSIDE. VENT BREAKS ON. WATER ELVA AT ADEQUATE LEVEL, EXTRA ELVA ON STANDBY IN ANTI ROOM. ASSESSMENT FOR SUBCUTANEOUS EMPHYSEMA, NO VISUAL CHANGE NOTED IN NECK SIZE OR EXCESSIVE SUBCUTANEOUS EMPHYSEMA. SUCTION CATHETER CHANGED TO 72-HOUR SUCTION CATHETER, NOTED TO BE HEAVILY SOILED. ASH INTEGRITY VERY POOR, ASH WITH GUARD CHANGED WITH HELP FROM RN, PT'S SATURATION DROPPED TO 87% AFTER CHANGING ASH, SATURATION WENT BACK UP TO 94%. ET TUBE SECURED TO 20CM AT THE BOTTOM LIP, BILATERAL BS HEARD. DRIED BLOOD NOTED ON TEETH AND LIPS, NO SKIN OR LIP BREAKDOWN NOTED. PT'S LOWER TEETH MISSING, GUARD PLACED IN CENTER POSITION TO NOT CAUSE IRRITATION TO GUM LINE AND REMAINING TEETH. PT SUCTIONED FOR SMALL THIN CLEAR BLOODY SECRETIONS. PT ON CONT BEDSIDE MONITORING, WILL CONTINUE TO MONITOR.
--- NOTE | 2019-12-03 19:40 | NUR ---
Opening Shift Note: Patient is intubated/sedated. ET size 7.5/20 @ lip. Vent settings: AC rate 18; vT 350; FiO2 100%; PEEP 8. Patient intubated on 12/01/19. Neuro: pupils are 2mm/sluggish; flaccid extremities; hypoactive cough/gag. Cardio: ST 110s-140s; SBP 110s-140s; radial pulses present/palpable; DP pulses weak but present on palpation. Small amounts of blood suctioned from mouth; none from ET tube; packing in bilateral nares for previous epistaxis. OGT clamped. Last BM unknown. Landeros inserted on 12/01/19 for strict I/O. Skin intact. IVs: right wrist ART line inserted on 12/02/19; right forearm 22 g IID inserted on 12/01/19; left hand 20 g IID inserted on 12/02/19; left IJ TLC inserted on 12/01/19 running Levo @ 12; Vasopressin @ 0.07; Fent @ 125; Versed @ 15. Will continue to round/reposition/perform oral care PRN. ABG/CXR/Labs in AM (0500).
--- NOTE | 2019-12-03 20:20 | NUR ---
Respiratory note: ABG RESULTS REPORTED TO DR. REAL. NO CHANGES MADE TO VENT SETTINGS AT THIS TIME. PT IN NO RESPIRATORY DISTRESS. WILL CONTINUE TO MONITOR PT.
--- NOTE | 2019-12-03 21:00 | NUR ---
Next of Kin Update: Daughter Kenzie is new next of kin. Previous next of kin was the but he only speaks Turkmen. Hospital staff translated conversation with the .
[2019-12-03] MEDS: EPINEPHrine HCL 250 ML IV SCH (21:25)
[2019-12-03] MEDS: ATRACURIUM BESYLATE 1,000 MG in D5W 5% 150 ML IV SCH (21:25)
--- NOTE | 2019-12-03 22:00 | NUR ---
High Blood Sugars: Page sent to Dr. Estrella in regards to patients high trend of blood glucose levels. BG has consistently been in the 200-300s; no known history of DM. Last BG was 316. New orders obtained for mild SS Q6H related to NPO status and A1C laboratory test in AM.
[2019-12-03] MEDS ORDERED: DEXTROSE (50%) 50ML SYRG IV PRN (22:30)
--- NOTE | 2019-12-03 22:40 | NUR ---
Respiratory note: AT BEDSIDE IN FULL PPE FOR MED NEB TX. WATER LEVEL ADEQUATE ON GISSELLE HEATER. AEROGEN NOTED TO BE FULL FROM PREVIOUS MED NEB TX. AEROGEN POWER CORD CHECKED, NOTED TO FUNCTIONING. AEROGEN DEVICE REMOVED AND REPLACED, AEROSOLIZATION NOW NOTED. PT SPO2 NOTED AT 98%. TITRATED FIO2 TO 95%. PT SATS DROPPED TO 90%. PT SUCTIONED FOR SMALL RETURN OF SCANT BLOODY THIN SECRETIONS. PT PLACED BACK ON 100% FIO2. SPO2 WENT FROM 85% BACK UP TO 99%, PULSE OX PRESENTING GOOD WAVEFORM ENTIRE TIME OF DESATURATION. RN CALLED TO BEDSIDE, AWARE OF DESATURATION. NO CHANGES NOTED IN SUBCUTANEOUS EMPHYSEMA. BS CLEAR/DIMINISHED. PT VITALS ARE NOW STABLE, WILL CONTINUE TO MONITOR.
[2019-12-04] VITALS (104 sets, daily range): BP systolic 67–177; BP diastolic 39–98
[2019-12-04] MEDS: MIDAZOLAM DRIP 50 mg/50mL 50 ML IV SCH ×4 (00:29→23:00)
[2019-12-04] MEDS: VANCOMYCIN 1GM/250ML 250 ML IV SCH ×2 (00:30→16:30)
[2019-12-04] MEDS: PIPERACILLIN-TAZOB 3.375GM 100 ML IV SCH ×4 (01:30→19:00)
[2019-12-04] MEDS: PHENYLEPHRINE IV 250 ML IV SCH ×2 (04:58→16:14)
--- NOTE | 2019-12-04 05:00 | NUR ---
CXR ordered STAT; morning chest xray not completed routine. Call made to xray and reordered to ensure chest xray completion.
[2019-12-04] MEDS: ACCU-CHEK COMFORT CURVE STRIP VI SCH ×4 (06:00→18:48)
[2019-12-04] MEDS: InsuLIN REG 1unit/0.01ml Soln (100units/ml) SC SCH ×4 (06:00→19:00)
--- NOTE | 2019-12-04 06:15 | NUR ---
Critical Hgb: Patient hgb 6.4 per dairy and food laboratory assistant. Will order redraw to confirm level. Will obtain consent from next of kin for possible transfusion.
--- NOTE | 2019-12-04 06:33 | NUR ---
Blood consent obtained from next of kin: Efrain Espino [phone]. 2 nurses confirmed consent over the phone (JHON Suarez and myself)
[2019-12-04] MEDS: LEVALBUTEROL HCL 1.25 MG/3 ML NEB NEB SCH ×3 (06:59→22:37)
[2019-12-04] MEDS: IPRATROPIUM BROM 0.5 MG/2.5ML INH SOL NEB SCH ×3 (06:59→22:37)
--- NOTE | 2019-12-04 07:04 | NUR ---
Respiratory note: RECEIVED PATIENT ON V21 V200 VENT ORALLY INTUBATED WITH A 7.5 ETT SECURED VIA ASH AT THE 20CM MARKING AT THE LIP, AND MECHANICALLY VENTILATED WITH THE CHARTED SETTINGS. SPO2 98%, LUNG SOUNDS DIM T/O, SMALL AMOUNT OG RED SECRETIONS WHEN SUCTIONED. SKIN IS WARM/DRY TO THE TOUCH AND IS INTACT NEAR ASH SITE. NO NEW AM CXR TO REPORT. PATIENT IS UNRESPONSIVE TO BOTH VERBAL/TACTILE STIMULI AND IS SEDATED ON VERSED AND FENTANYL DRIPS. SHE IS RESTING COMFORTABLY AND TOLERATING VENT WELL, NO CHANGES MADE. VENT PLUGGED INTO RED OUTLET AND ALL ALARMS ARE SET AND AUDIBLE. WILL CONTINUE TO ASSESS PATIENT WELL VENTILATOR FUNCTION. [employer] RUN INLINE.
[2019-12-04 07:11] LABS: Eosinophils # (auto) 0 10 ^3/uL (0-0.8); Hematocrit 20.6 % (36.0-46.0); Mean Corpuscular Hgb Conc. 33.7 g/dL (32.0-36.0); Monocytes # (auto) 0.7 10 ^3/uL (0-1.3); Red Cell Distribution Width 13.3 % (11.8-14.3)
[2019-12-04 07:14] LABS: Basophils # (auto) 0.1 10 ^3/uL (0-0.2); Basophils % (auto) 0.3 % (0.0-2.0); Lymphocytes # (auto) 0.7 10 ^3/uL (0.4-5.4); Lymphocytes % (auto) 4.3 % (10.0-50.0); Mean Corpuscular Hemoglobin 29.3 pg (28.0-32.0); Monocytes % (auto) 4.2 % (0.0-12.0); Neutrophils # (auto) 15.1 10 ^3/uL (1.6-8.6); Neutrophils % (auto) 91.2 % (37.0-80.0); Platelet Count (auto) 143 10^3/uL (140-450); Red Blood Cells 2.37 10^6/uL (4.0-5.20); White Blood Cell 16.6 10^3/uL (4.4-10.8)
--- NOTE | 2019-12-04 07:20 | NUR ---
ATTEMPTED MULTIPLE TIMES TO REACH RADIOLOGY RE: STAT CXR
--- NOTE | 2019-12-04 07:30 | NUR ---
RADIOLOGY PAGED OVERHEAD FOR CXR
[2019-12-04 07:34] LABS: Calcium 8.3 mg/dL (8.5-10.1); Potassium 3.6 mmol/L (3.5-5.1)
--- NOTE | 2019-12-04 07:45 | NUR ---
CALL PLACED TO DR Luis Miguel HAN RE: HGB 7.0
--- NOTE | 2019-12-04 07:50 | NUR ---
RADIOLOGY NOTIFIED OF NEED FOR CXR JAE
--- NOTE | 2019-12-04 08:17 | NUR ---
DR Luis Miguel HAN RETURNS CALL RE: HGB 7.0 - ORDERS RECEIVED. PLACED CALL TO DR SANDS RE: HGB 7.0
--- NOTE | 2019-12-04 09:00 | NUR ---
PATIENT WITH POSITIVE COUGH/GAG REFLEX. SEDATION VACATION NOT APPROPRIATE AT THIS TIME - PATIENT ON 100% FIO2. Addendum: 12/04/19 at 1752 by Monika Riley RN Amended: Links added.
[2019-12-04] MEDS: ASCORBIC ACID 1,000 MG TAB PO SCH (09:08)
[2019-12-04] MEDS: DOXYCYCLINE 100 MG TAB/CAP PO SCH ×2 (09:08→21:15)
[2019-12-04] MEDS: ZINC SULFATE 220mg CAP or TAB PO SCH (09:08)
[2019-12-04] MEDS: CHOLECALCIFEROL (VITD3) 1,000UNIT=25mCg TAB PO SCH (09:09)
[2019-12-04] MEDS: DexAMETHasone SOD PHOS 4 MG/1ML SDV INJ IV SCH (09:53)
--- NOTE | 2019-12-04 10:00 | NUR ---
DR SANDS RE-PAGED RE HGB 7.0
[2019-12-04 10:03] LABS: Free T4 (Free Thyroxine) 0.73 ng/dL (0.89-1.76)
[2019-12-04 10:04] LABS: Folate (Folic Acid) 4.65 ng/mL (5.38-24)
[2019-12-04] MEDS: PROPOFOL 100 ML IV SCH (10:22)
--- NOTE | 2019-12-04 10:45 | NUR ---
DR SANDS RETURNS CALL, INFORMED OF HGB 7.0 AND CURRENT CONDITION - NO NEW ORDERS RECEIVED.
--- NOTE | 2019-12-04 10:53 | NUR ---
DR FRANCOIS VISITS AND EXAMINES PATIENT - ORDERS RECEIVED.
--- NOTE | 2019-12-04 11:00 | NUR ---
Mod amt bleeding noted with attempted oral care in addition to desaturation to 85-87% - further oral care to be witheld secondary to patient's intolerance and Hgb 7.0.
--- NOTE | 2019-12-04 11:14 | NUR ---
Nutrition Followup Note Wt: 70.8 kg Pt`s covid +. Pt intubated and sedated with propofol running at 5.445ml/hr to provide 146 kcal from fat. If pt continues to be NPO , intubated and sedated consider alternate nutrition. If TF is recommended consider Jevity 1.2 at 45 ml per MD approval to provide 1296 kcal and 60g protein Est Energy needs: 7561-7956 kcals (20-23 kcal/kgBW), Est Protein needs: 50-62 gms/day (0.8-1.0 gm/kgBW). Will continue to monitor and reassess prn. Labs: Creat 0.52L, Ca 8.3L, Alb 2.5L BM: Pt had 1 BM on 12/01 per RN doc Skin: BS 13 mod risk, full wound care details in RN doc PES: 1) Inadequate oral intake aeb pt with ave of 38% PO intake over 4 meals r/t pt with a poor appetite Partially resolved: 2) Altered nutrition related lab values aeb hyperglycemia, hypocalcemia, elev LFTs, elev Alk Phos, mod hypoalbuminemia r/t current medical condition Comments Will continue to closely monitor pertinent labs, PO status and skin status prn. Will followup in 2-3 days 1) If pt NPO >48 hours consider alternate nutrition 2) If TF is recommended consider Jevity 1.2 at 45 ml/hr per MD approval 3) Advance diet as medically feasible 4) Continue current plan of care
--- NOTE | 2019-12-04 12:15 | NUR ---
DR SMITH VISITS - NO NEW ORDERS RECEIVED.
--- NOTE | 2019-12-04 12:40 | NUR ---
PRBC UNIT STARTED - WILL MONITOR FOR S/S TRANSFUSION REACTION.
--- NOTE | 2019-12-04 12:40 | NUR ---
DR SANDS VISITS - NO NEW ORDERS RECEIVED.
--- NOTE | 2019-12-04 14:14 | NUR ---
PRBC UNIT COMPLETELY TRANSFUSED WITHOUT S/S TRANSFUSION REACTION
[2019-12-04] MEDS: VASOPRESSIN 50 UNITS in D5W 5% 247.5 ML IV SCH (14:30)
--- NOTE | 2019-12-04 16:07 | NUR ---
Respiratory note: 1400 MED-NEB NON-ADMINISTERED THERAPIST WAS UNAVAILABLE. NO NEGATIVE INTERACTION NOTED FROM MISSED MED-NEB TX.
[2019-12-04 16:08] LABS: Hematocrit 24.7 % (36.0-46.0); Hemoglobin 8.5 g/dL (12.2-16.2)
--- NOTE | 2019-12-04 16:29 | NUR ---
PATIENT'S DAUGHTER PHONES - UPDATED ON PATIENT CONDITION - VERBALIZED UNDERSTANDING.
--- NOTE | 2019-12-04 18:00 | NUR ---
Unable to reposition patient this shift or perform oral care due to desaturation to 85-87%.
--- NOTE | 2019-12-04 18:25 | NUR ---
Senior Counsel noted irregular respirations - appears asynchronous with ventilator however no dyssynchrony with ventilator noted with ventilator values. Patient's left neck appears larger than previously noted this entire shift - palpated patient's neck - unable to palpate crepitus. Attempted to reposition patient's head - immediate desaturation noted to 88-89%. RT notified. Lungs sounds diminished. Stat CXR ordered.
[2019-12-04] MEDS: fentaNYL Drip 2500mCg/250mlNS 250 ML IV SCH (18:48)
--- NOTE | 2019-12-04 19:10 | NUR ---
[employer] [employer] phoned commercial underwriter with critical results from CXR - call placed to Dr Mclain.
--- NOTE | 2019-12-04 19:20 | NUR ---
Dr Anaya phones telegraphic typewriter operator - critical CXR results given - no new orders received.
--- NOTE | 2019-12-04 19:30 | NUR ---
Opening Shift Note: Patient is intubated/sedated. ET size 7.5/20 @ lip. Vent settings: AC rate 18; vT 350; FiO2 100%; PEEP 10. Patient intubated on 12/01/19. Neuro: pupils are 2mm/sluggish; flaccid extremities; hypoactive cough/gag. Cardio: NSR 80S-90S; SBP 100s; radial pulses present/palpable; DP pulses weak but present on palpation. Small amounts of blood suctioned from mouth; none from ET tube; packing in bilateral nares for previous epistaxis. OGT clamped. Last BM unknown. Landeros inserted on 12/01/19 for strict I/O. Skin intact. IVs: right wrist ART line inserted on 12/02/19; right forearm 22 g IID inserted on 12/01/19; left hand 20 g IID inserted on 12/02/19; left IJ TLC inserted on 12/01/19; Vasopressin @ 0.07; Fent @ 125; Versed @ 15; Propofol @ 15. Will continue to round/reposition/perform oral care PRN. ABG/CXR/Labs in AM (0500).
[2019-12-04] MEDS: EPINEPHrine HCL 250 ML IV SCH (20:30)
[2019-12-04] MEDS: ATRACURIUM BESYLATE 1,000 MG in D5W 5% 150 ML IV SCH (20:30)
[2019-12-04] MEDS: NOREPINEPHRINE 8 MG/250ML KIT 250 ML IV SCH (20:30)
--- NOTE | 2019-12-04 21:15 | NUR ---
Dr. Shikha Arevalo at bedside. Physician spoke with next of kin Kenzie (daughter) [phone] and updated her on the patient's current status. New order received to transfuse PRBCs x2 units if hgb is below 7.
--- NOTE | 2019-12-04 23:15 | NUR ---
Page sent to Dr. Anaya in regards to vent settings. Patient has sustained O2 saturations in the high 80s. FiO2 is currently 100%. PEEP was changed from 8-10 to maintain patients sats. Current O2 saturation is 92-95%. Page sent to confirm any vent changes.
[2019-12-05] VITALS (65 sets, daily range): BP systolic 71–177; BP diastolic 33–122
[2019-12-05] MEDS ORDERED: ATRACURIUM BESYLATE (10 MG/ ML) 10 ML VIAL ONE (00:30)
--- NOTE | 2019-12-05 00:30 | NUR ---
Change in patient status: No return page from Dr. Anaya (public health aide) in regards to vent management. Patient is continuing to desat into the low 80s on current vent settings: AC rate 18; vT350; FiO2 100%; PEEP 10. Patient is also breathing over the vent mid 20s; HR increasing 110s-120s; BP dropping into 80s per ART line. Page was also sent to Dr. Estrella (tong hooker for Shikha Arevalo) in regards to current patient status; per physician, must consult pulmonology. Page was sent to Dr. Breen, public health aide. Urgent situation was explained. New orders received for STAT ABG/CXR and to start paralytic to ensure ventilator synchrony and maximize oxygenation. Will order STAT ABG/CXR is patient experiences any change in status per previous communication order.
[2019-12-05] MEDS: PHENYLEPHRINE IV 250 ML IV SCH ×3 (00:34→17:14)
[2019-12-05] MEDS: PROPOFOL 100 ML IV SCH ×3 (01:00→09:48)
[2019-12-05] MEDS: ATRACURIUM BESYLATE 1,000 MG in D5W 5% 150 ML IV SCH (01:00)
--- NOTE | 2019-12-05 01:00 | NUR ---
Paralytic atracurium drip started per protocol. TOF performed on temporal region before drip initiation; 4/4 @ 4 MA. Will reassess in 1 H.
[2019-12-05] MEDS ORDERED: FUROSEMIDE 40 MG/4 ML VIAL IV ONE (01:15)
[2019-12-05] MEDS ORDERED: FUROSEMIDE 40 MG/4 ML VIAL ONE (01:15)
--- NOTE | 2019-12-05 01:30 | NUR ---
Next of kin, daughter Kenzie, updated on patient's current status.
[2019-12-05] MEDS: MIDAZOLAM DRIP 50 mg/50mL 50 ML IV SCH ×2 (02:00→05:34)
--- NOTE | 2019-12-05 02:00 | NUR ---
TOF reassessment performed per protocol. Patient TOF 3/4 @ 4 MA. Will increase drip rate from 5 to 10.
[2019-12-05] MEDS: VASOPRESSIN 50 UNITS in D5W 5% 247.5 ML IV SCH (03:00)
[2019-12-05] MEDS: NOREPINEPHRINE 8 MG/250ML KIT 250 ML IV SCH (03:30)
[2019-12-05 04:36] LABS: Basophils # (auto) 0 10 ^3/uL (0-0.2); Eosinophils # (auto) 0 10 ^3/uL (0-0.8); Hematocrit 25.4 % (36.0-46.0); Hemoglobin 8.7 g/dL (12.2-16.2); Lymphocytes # (auto) 0.7 10 ^3/uL (0.4-5.4); Mean Corpuscular Hgb Conc. 34.3 g/dL (32.0-36.0); Mean Corpuscular Volume 87.3 fL (80.0-100.0); Monocytes # (auto) 1.3 10 ^3/uL (0-1.3); Monocytes % (auto) 5.3 % (0.0-12.0); Neutrophils # (auto) 22.6 10 ^3/uL (1.6-8.6); Neutrophils % (auto) 91.7 % (37.0-80.0); Platelet Count (auto) 175 10^3/uL (140-450); Red Blood Cells 2.91 10^6/uL (4.0-5.20); Red Cell Distribution Width 13.7 % (11.8-14.3); White Blood Cell 24.7 10^3/uL (4.4-10.8)
[2019-12-05 05:26] LABS: BUN/Creatinine Ratio 24.1; Calcium 7.8 mg/dL (8.5-10.1); Potassium 3.2 mmol/L (3.5-5.1)
--- NOTE | 2019-12-05 05:30 | NUR ---
Dr. Anaya paged and made aware of patient's change in status/vent setting changes/latest ABG results. Per underwriter mortgage loan, no new orders or changes at this time; he will possibly change settings when he rounds.
[2019-12-05] MEDS: PIPERACILLIN-TAZOB 3.375GM 100 ML IV SCH ×3 (05:34→20:05)
[2019-12-05] MEDS: VANCOMYCIN 1GM/250ML 250 ML IV SCH ×2 (05:35→20:06)
[2019-12-05] MEDS: InsuLIN REG 1unit/0.01ml Soln (100units/ml) SC SCH ×3 (06:00→12:00)
[2019-12-05] MEDS: ACCU-CHEK COMFORT CURVE STRIP VI SCH ×3 (06:00→12:00)
--- NOTE | 2019-12-05 06:00 | NUR ---
TOF assessed; patient is 4/4 on 5. Will increase to 7 per protocol.
[2019-12-05] MEDS: LEVALBUTEROL HCL 1.25 MG/3 ML NEB NEB SCH ×3 (06:35→22:31)
[2019-12-05] MEDS: IPRATROPIUM BROM 0.5 MG/2.5ML INH SOL NEB SCH ×3 (06:35→22:31)
--- NOTE | 2019-12-05 07:30 | NUR ---
Received report from Isabel FERREIRA Patient on mechanical ventilation, mode changed from AC to pressure support, SPO2 89-90%, patient does not tolerate position . . changes. Patient in NS-tachy. On Levophed 6mcg for BP support, current 134/72. Patient has subcuataneous emphasema, with trace pneumothorax yesterday - today has increased in size, right side. RN paging Dr. Feliciano at this time. Patient has caldwell catheter to gravity, Left 3x lumen IJ central line, and arterial line.
[2019-12-05] MEDS: fentaNYL Drip 2500mCg/250mlNS 250 ML IV SCH (08:00)
--- NOTE | 2019-12-05 08:05 | NUR ---
Critical radiology call, right small pneumothorax, increased in size from day before. Paged Dr. Feliciano.
--- NOTE | 2019-12-05 08:15 | NUR ---
Dr. Feliciano called back after page RN informed him of new chest xray result with new right small/moderate pneumothorax, change since last chest xray with left mediastinum small pneumothorax. Patient has subcutaneous emphasema, exaggerated more on left chest and neck. No tracheal deviation at time of assessment. SPO2 89%, RR 20, lung sounds diminished. Patient is not turned at this time d/t hemodynamic instability and pneumothorax presentation. New order for chest tube insertion when physician rounds.
--- NOTE | 2019-12-05 08:56 | NUR ---
Per ICU director, daughter and spouse are able to visit for 10 minutes with N95's on and full PPE. Called and left message with daughter.
[2019-12-05] MEDS: ZINC SULFATE 220mg CAP or TAB PO SCH (10:02)
[2019-12-05] MEDS: ASCORBIC ACID 1,000 MG TAB PO SCH (10:03)
[2019-12-05] MEDS: CHOLECALCIFEROL (VITD3) 1,000UNIT=25mCg TAB PO SCH (10:03)
[2019-12-05] MEDS: DOXYCYCLINE 100 MG TAB/CAP PO SCH ×2 (10:03→22:27)
--- NOTE | 2019-12-05 10:04 | NUR ---
Called daughter again [phone] left message to return call, no personal names given just my name and phone number for unit.
--- NOTE | 2019-12-05 10:13 | NUR ---
Number provided for daughter is incorrect number. Patient phone number called, no answer. Will continue to call.
--- NOTE | 2019-12-05 10:19 | NUR ---
Call to spouse at [phone] left message for daughter to call unit back.
--- NOTE | 2019-12-05 10:27 | NUR ---
Spoke with daughter on phone, updated her on current status and patients need for chest tube placement. Discussed family decision regarding code status of patient Kenzie. She and her father will be here at 1110 to put on full PPE and visit for 10 minutes.
--- NOTE | 2019-12-05 11:15 | NUR ---
Dr. López bedside for right side chest tube with xray confirmation of placement. To wall suction per Dr. Martinez maximum suction.
--- NOTE | 2019-12-05 11:55 | NUR ---
Respiratory note: RT AT BEDSIDE DURING CHEST TUBE INSERTION. PROCEDURE WENT WITHOUT INCIDENT. PT SPO2 90% DR DUNBAR AND JHON MELGAR AT BEDSIDE.
--- NOTE | 2019-12-05 13:20 | NUR ---
Respiratory note: RT AT BEDSIDE DURING CHEST TUBE INSERTION WITH DR LEIGH AND JHON MELGAR. PT DESATURATED DURING PROCEDURE. PT NOW HAS INVERSE RATION OF 2:1. SPO2 92%. DR LEIGH AND JHON MELGAR AWARE OF CHANGES. Addendum: 12/05/19 at 2022 by KIMBERLY BUENO RT CORRECTION INVERSE RATIO OF 1:1
--- NOTE | 2019-12-05 13:30 | NUR ---
Dr. Tucker bedside for left chest tube insertion, to wall suction -20 order.
--- NOTE | 2019-12-05 14:26 | NUR ---
Left message with answering service regarding status of patient post 2nd chest tube insertion. Requesting call back to let me know if there are any new orders.
--- NOTE | 2019-12-05 14:32 | NUR ---
Dr. Martinez called back, updated on patient SPO2 status since insertion of second chest tube. Reported saturation of 75% upon insertion of 2nd chest tube. Physician stated he will be back to insert second chest tube on the right in one hour.
--- NOTE | 2019-12-05 14:45 | NUR ---
Both left and right chest tube, chris blood drainage. Dr. Martinez aware.
[2019-12-05 15:48] LABS: Hematocrit 25.6 % (36.0-46.0); Hemoglobin 8.5 g/dL (12.2-16.2)
--- NOTE | 2019-12-05 17:03 | NUR ---
Respiratory note: VENT CHANGES MADE BY DR DUNBAR FOLLOW UP ABG RESULTS REPORTED TO DR DUNBAR
--- NOTE | 2019-12-05 17:10 | NUR ---
Dr. Martinez bedside For insertion of anterior chest tube. Connected to wall suction at maximum suction per Dr. Martinez.
--- NOTE | 2019-12-05 17:35 | NUR ---
Dr. Martinez bedside New order for Bumex drip 0.5mg/hr , new order to concentrate all medications as possible to prevent fluid overload.
--- NOTE | 2019-12-05 17:36 | NUR ---
New order for potassium protocol per Dr. Martinez.
--- NOTE | 2019-12-05 18:00 | NUR ---
Hospitalist paged for order for potassium replacement. No answer.
--- NOTE | 2019-12-05 18:00 | NUR ---
Patient A line redressed and advanced to see if it will work.
--- NOTE | 2019-12-05 18:15 | NUR ---
Called patient daughter for update, discussed plan of care completed today, issues we are facing right now and projected plan of care through the night.
--- NOTE | 2019-12-05 18:30 | NUR ---
Hospitalist paged for potassium replacement due to Bumex drip and lab value 3.2 No call back at this time.
--- NOTE | 2019-12-05 19:30 | NUR ---
Opening Shift Note Received pt on mechanical ventilator, sedated with propofol, versed, and fentanyl. Pt also on paralytic, atracurium. See IV spreadsheet for titrations. TOF 4/4 at 4 amps. Vasopressin and Levophed infusing. A-line to right radial. zeroed with a bad wave form. Sats at 88%. on pressure control with 100% Fio2 at this time. 2 chest tubes to right side draining sanguineous fluid. Left chest tube also draining. Full assessment done see interventions. Airborne precautions in place due to positive COVID test. All alarms on and audible, pt in full view of RN.
--- NOTE | 2019-12-05 20:12 | NUR ---
Report given to Lucita FERREIRA.
--- NOTE | 2019-12-05 21:00 | NUR ---
PT TOO HEMODYNAMICALLY UNSTABLE FOR SEDATION VACATION AND CAN NOT TOLERATE TURNS Addendum: 12/06/19 at 0306 by ONUR REN RN Amended: Links added.
[2019-12-05] MEDS: BUMETANIDE INJECTION 12.5 MG in GIVE UN-DILUTED 0 ML IV SCH (22:24)
[2019-12-05] MEDS: EPINEPHrine HCL 250 ML IV SCH (22:53)
[2019-12-05 23:34] LABS: Albumin 2.4 g/dL (3.4-5.0); Calcium 7.8 mg/dL (8.5-10.1); Magnesium 2.1 mg/dL (1.6-2.6); Potassium 4.3 mmol/L (3.5-5.1)
[2019-12-05 23:38] LABS: Bilirubin, Direct 0.3 mg/dL (0-0.2); Bilirubin, Total 0.9 mg/dL (0.2-1.0); Phosphorus 2.3 mg/dL (2.5-4.90); Total Protein 4.7 g/dL (6.4-8.2)
[2019-12-05 23:53] LABS: Mean Corpuscular Hemoglobin 30.8 pg (28.0-32.0)
[2019-12-05 23:55] LABS: Hematocrit 22.4 % (36.0-46.0); Mean Corpuscular Hgb Conc. 35.6 g/dL (32.0-36.0); Mean Corpuscular Volume 86.5 fL (80.0-100.0); Platelet Count (auto) 207 10^3/uL (140-450); Red Blood Cells 2.59 10^6/uL (4.0-5.20); Red Cell Distribution Width 13.2 % (11.8-14.3)
[2019-12-05 23:59] LABS: INR 1.36 (0.9-1.15); White Blood Cell 35.9 10^3/uL (4.4-10.8)
[2019-12-06] VITALS (62 sets, daily range): BP systolic 81–144; BP diastolic 59–97
[2019-12-06 00:01] LABS: Basophils % (manual) 0 (0.0-2.0); Blast Cells 0; Eosinophils % (manual) 0 (0-7); Metamyelocytes % 0; Myelocytes % 0; Promyelocytes % 0; Reactive Lymphocytes 0
--- NOTE | 2019-12-06 00:30 | NUR ---
Left message with MD regarding lab results and orders. Awaiting call back
[2019-12-06 00:33] LABS: BUN/Creatinine Ratio 32.1
--- NOTE | 2019-12-06 01:15 | NUR ---
MD Estrella returned call. made aware of pt's critical lab wbc level, low sodium level and pt's status. New order for repeat chem panel.
[2019-12-06] MEDS: PHENYLEPHRINE IV 250 ML IV SCH ×3 (01:34→23:32)
[2019-12-06] MEDS: VASOPRESSIN 50 UNITS in D5W 5% 247.5 ML IV SCH ×3 (01:43→18:15)
[2019-12-06] MEDS: PROPOFOL 100 ML IV SCH ×3 (01:49→18:05)
[2019-12-06 02:18] LABS: Band Neutrophils % (manual) 7; Lymphocytes % (manual) 5 (10.0-50.0)
[2019-12-06 02:19] LABS: Monocytes % (manual) 5 (0-12)
--- NOTE | 2019-12-06 03:04 | NUR ---
SEDATION VACATION NOT APPROPRIATE AT THIS TIME. PT TOO HEMODYNAMICALLY UNSTABLE TO EVEN TURN
[2019-12-06 04:28] LABS: Hemoglobin 8.3 g/dL (12.2-16.2)
[2019-12-06 04:30] LABS: Hematocrit 22.4 % (36.0-46.0); Mean Corpuscular Hemoglobin 31.9 pg (28.0-32.0); Mean Corpuscular Hgb Conc. 37.1 g/dL (32.0-36.0); Mean Corpuscular Volume 86.1 fL (80.0-100.0); Platelet Count (auto) 205 10^3/uL (140-450)
--- NOTE | 2019-12-06 04:44 | NUR ---
UNABLE TO TURN PT/ TOO UNSTABLE ATTEMPTED TO TURN AND CLEAN PT/SKIN ASSESSMENT. PT DESATURATED IMMEDIATELY.
[2019-12-06 04:49] LABS: Potassium 3.1 mmol/L (3.5-5.1)
[2019-12-06 04:55] LABS: BUN/Creatinine Ratio 22.7; Calcium 6.8 mg/dL (8.5-10.1); Magnesium 1.8 mg/dL (1.6-2.6)
[2019-12-06 05:22] LABS: White Blood Cell 38.4 10^3/uL (4.4-10.8)
[2019-12-06 05:27] LABS: Basophils % (manual) 0 (0.0-2.0); Blast Cells 0; Eosinophils % (manual) 0 (0-7); Metamyelocytes % 0; Myelocytes % 0; Promyelocytes % 0; Reactive Lymphocytes 0
[2019-12-06 05:32] LABS: Albumin 2.5 g/dL (3.4-5.0); Bilirubin, Direct 0.5 mg/dL (0-0.2)
--- NOTE | 2019-12-06 05:33 | NUR ---
CALLED DR ANDERSON REGARDING CRITCAL LAB VALUES. STATED TO STOP BUMEX GTT AND CALL DR. SANTIAGO FOR ORDERS. NEW ORDER RECEIVED FOR POTASSIUM 60 MEQ IV
--- NOTE | 2019-12-06 05:35 | NUR ---
DR. PAMELA GRIFFITHS AND RETURN CALL NEW ORDER TO RE DRAW CHEM PANEL.
[2019-12-06 05:45] LABS: Total Protein 4.8 g/dL (6.4-8.2)
[2019-12-06] MEDS: ACCU-CHEK COMFORT CURVE STRIP VI SCH ×6 (06:00→18:00)
[2019-12-06] MEDS: PIPERACILLIN-TAZOB 3.375GM 100 ML IV SCH ×2 (06:25)
[2019-12-06] MEDS ORDERED: POTASSIUM CHL 20MEQ/100ML 100 ML IV SCH ×2 (06:30→10:30)
--- NOTE | 2019-12-06 06:30 | NUR ---
Unable to draw from pt's line; too unstable to stop any medication at this time. A-line not pulling blood either
--- NOTE | 2019-12-06 06:45 | NUR ---
Temperature Temp of 100.4, Tylenol given per MD order.
[2019-12-06 06:47] LABS: Band Neutrophils % (manual) 4; Lymphocytes % (manual) 6 (10.0-50.0); Monocytes % (manual) 6 (0-12)
--- NOTE | 2019-12-06 07:30 | NUR ---
Received report from Lucita FERREIRA Patient remains sedated and on mechanical ventilation, pressure control. SPO2 92% RR 24, HR 133 BP 110/68 via blood pressure cuff. Arterial line is not reading properly at this time. Patient temp 100.2 rectal. Patient is paralyzed, all limbs flaccid. Patient labile and unable to be turned or moved without changes in ventilation, oxygenation and blood pressure- treating providers aware with orders to advance mobility as tolerated. Norepinephrine 20 mcg, Vasopressin 0.07 mcg, versed 15mg, Fentanyl 200 mcg, diprivan 50 mcg, atracirum 6.996 mcg. Landeros catheter to gravity cl;ear yellow/green urine. No bowel movement on p.m. shift. Will continue to monitor.
[2019-12-06] MEDS: ACETAMINOPHEN 325 MG TAB PO PRN (07:33)
--- NOTE | 2019-12-06 07:34 | NUR ---
Report given and care endorsed to JHON Thomason.
[2019-12-06] MEDS: LEVALBUTEROL HCL 1.25 MG/3 ML NEB NEB SCH ×3 (07:42→22:31)
[2019-12-06] MEDS: IPRATROPIUM BROM 0.5 MG/2.5ML INH SOL NEB SCH ×3 (07:42→22:31)
[2019-12-06] MEDS: VANCOMYCIN 1GM/250ML 250 ML IV SCH (08:51)
--- NOTE | 2019-12-06 09:00 | NUR ---
Dr. Martinez called for ABG result from this a.m., to ask if patient is still on Bumex IV drip and to ask if she is still paralyzed, no new orders. He will be rounding later on.
[2019-12-06 10:02] LABS: Hemoglobin 8.7 g/dL (12.2-16.2)
[2019-12-06 10:05] LABS: Hematocrit 21.3 % (36.0-46.0); Mean Corpuscular Hemoglobin 34.5 pg (28.0-32.0); Mean Corpuscular Volume 84.9 fL (80.0-100.0); Platelet Count (auto) 198 10^3/uL (140-450); Red Blood Cells 2.51 10^6/uL (4.0-5.20)
[2019-12-06 10:07] LABS: Mean Corpuscular Hgb Conc. 40.7 g/dL (32.0-36.0); White Blood Cell 38.6 10^3/uL (4.4-10.8)
[2019-12-06 10:10] LABS: Basophils % (manual) 0 (0.0-2.0); Blast Cells 0; Eosinophils % (manual) 0 (0-7); Metamyelocytes % 0; Monocytes % (manual) 0 (0-12); Promyelocytes % 0; Reactive Lymphocytes 0
[2019-12-06 10:17] LABS: Albumin 2.4 g/dL (3.4-5.0); Calcium 6.1 mg/dL (8.5-10.1)
[2019-12-06 10:22] LABS: Bilirubin, Total 1.2 mg/dL (0.2-1.0)
[2019-12-06] MEDS: ZINC SULFATE 220mg CAP or TAB PO SCH (10:22)
[2019-12-06] MEDS: DOXYCYCLINE 100 MG TAB/CAP PO SCH (10:22)
[2019-12-06] MEDS: CHOLECALCIFEROL (VITD3) 1,000UNIT=25mCg TAB PO SCH (10:23)
[2019-12-06] MEDS: ASCORBIC ACID 1,000 MG TAB PO SCH (10:24)
[2019-12-06] MEDS ORDERED: POTASSIUM PHOSPHATE 22 MEQ in SODIUM CHL 0.9% 100 ML IV ONE (10:30)
[2019-12-06 11:28] LABS: Aspartate Aminotransferase 53.58 U/L (15-37); BUN/Creatinine Ratio 18.4
[2019-12-06 11:29] LABS: Total Protein 4.7 g/dL (6.4-8.2)
[2019-12-06 11:31] LABS: Potassium 2.8 mmol/L (3.5-5.1)
--- NOTE | 2019-12-06 11:59 | NUR ---
Dr. Steele returned page regarding critical labs. New orders entered and new consult to assess sodium level. New order to D/C zosyn.
[2019-12-06 13:14] LABS: Band Neutrophils % (manual) 8; Lymphocytes % (manual) 8 (10.0-50.0); Myelocytes % 1
--- NOTE | 2019-12-06 13:57 | NUR ---
Dr. Schwarz bedside. Updated on status. No new orders. Dr. Martinez bedside, they discussed the patient case.
--- NOTE | 2019-12-06 13:58 | NUR ---
Michelle Demarco bedside. New order to hold paralytic and see if patient can synchronize with the vent. Turn back on if patient cannot.
--- NOTE | 2019-12-06 14:04 | NUR ---
Per Shadia Barrett RN, will use 1000 CBC draw serum glucose of 417 for 1200 accucheck and insulin administration.
--- NOTE | 2019-12-06 14:15 | NUR ---
Per Dr. Martinez leave patient on sedation until bronchoscopy complete.
--- NOTE | 2019-12-06 14:20 | NUR ---
Per Dr. Martinez, hold Bumex drip. New order for NS for all drips. New order for 3% NS 100 ml/ 2hrs. Draw serum osmolality and urine osmolality STAT.
--- NOTE | 2019-12-06 14:55 | NUR ---
Nephrology returned call, new consult per Hospitalist. New orders for urine labs, IV 3 %. Hold Bumex per Dr. Martinez.
[2019-12-06] MEDS ORDERED: SODIUM CHL 3% 500 ML IV ONE (15:00)
[2019-12-06] MEDS: InsuLIN REG 1unit/0.01ml Soln (100units/ml) SC SCH ×3 (15:32→21:02)
[2019-12-06] MEDS: MIDAZOLAM DRIP 50 mg/50mL 50 ML IV SCH ×2 (15:38→18:49)
--- NOTE | 2019-12-06 15:41 | NUR ---
Nutrition Followup Note Wt: 71.4 kg Pt`s covid +. Pt intubated and sedated with propofol running at 30 ml/hr to provide 792 kcal from fat. If pt remains NPO for the nest 48 hrs, consider EN nutrition support of Glucerna 1.2 @ 45 ml/hr goal rate. Will continue to monitor PO status, skin status, pertinent labs and weight trends. Will f/u in 3-5 days. Est Energy needs: 2928-1211 kcals (20-23 kcal/kgBW), Est Protein needs: 50-62 gms/day (0.8-1.0 gm/kgBW). Will continue to monitor and reassess prn. Labs: POC Gluc 417 H, A1c 7.1 H, Ca 6.8 L, Alb 2.5 L BM: Pt had 1 BM on 12/04 per RN doc Skin: BS 13 mod risk, full wound care details in RN doc PES: 1) Inadequate oral intake aeb pt with ave of 38% PO intake over 4 meals r/t pt with a poor appetite 2) Altered nutrition related lab values aeb hyperglycemia, hypocalcemia, elev LFTs, elev Alk Phos, mod hypoalbuminemia r/t current medical condition Comments Will continue to closely monitor pertinent labs, PO status and skin status prn. Will followup in 2-3 days 1) If pt NPO >48 hours consider alternate nutrition 2) If TF is recommended consider Glucerna 1.2 at 45 ml/hr per MD approval 3) Advance diet as medically feasible 4) Continue current plan of care
[2019-12-06] MEDS: POTASSIUM CHL 20MEQ/100ML 100 ML IV SCH ×2 (15:45→22:30)
[2019-12-06 16:15] LABS: Protein, Urine 12.2 mg/dL (0.0-11.9)
[2019-12-06 16:16] LABS: Creatinine, Urine 7.34 mg/dL (30.0-125.0)
--- NOTE | 2019-12-06 16:36 | NUR ---
Per Dr. Rodrigues, verbal order to hold Bumex IV drip at this time until tomorrow and Na+ reassessement/
[2019-12-06] MEDS: MEROPENEM 1GM IVPB 100 ML IV SCH ×2 (17:11→22:00)
[2019-12-06] MEDS: BUMETANIDE INJECTION 12.5 MG in GIVE UN-DILUTED 0 ML IV SCH (17:30)
--- NOTE | 2019-12-06 17:56 | NUR ---
Respiratory note: Received pt on vent v21, vent connected to red outlet and o2 source. Alarms are set and audible ambu bag and mask at bedside. vent check done by door due to Covid-19 precautions. Chest tubes seen at bedside. Will continue to monitor.
[2019-12-06 18:53] LABS: Hematocrit 21.6 % (36.0-46.0); Hemoglobin 7.2 g/dL (12.2-16.2); Mean Corpuscular Hemoglobin 28.7 pg (28.0-32.0); Mean Corpuscular Hgb Conc. 33.2 g/dL (32.0-36.0); Mean Corpuscular Volume 86.5 fL (80.0-100.0); Red Blood Cells 2.49 10^6/uL (4.0-5.20); Red Cell Distribution Width 12.9 % (11.8-14.3)
[2019-12-06 19:40] LABS: Chloride 64 mmol/L (98-107); Potassium 3.1 mmol/L (3.5-5.1); Sodium 124 mmol/L (136-145)
[2019-12-06 19:41] LABS: Anion Gap 18 (5-15); BUN/Creatinine Ratio 17.3; Blood Urea Nitrogen 13 mg/dL (7-18); GFR African American 101 mL/min; GFR Non-African American 83 mL/min; Glucose 376 mg/dL (74-106)
[2019-12-06 19:43] LABS: Albumin 2.6 g/dL (3.4-5.0); Bilirubin, Direct 0.5 mg/dL (0-0.2); Bilirubin, Total 0.7 mg/dL (0.2-1.0); Magnesium 1.5 mg/dL (1.6-2.6); Total Protein 4.6 g/dL (6.4-8.2)
[2019-12-06 19:44] LABS: Calcium 6.6 mg/dL (8.5-10.1)
[2019-12-06 19:46] LABS: Carbon Dioxide 42 mmol/L (21-32)
--- NOTE | 2019-12-06 19:48 | NUR ---
Report given to Lucita FERREIRA. Patient remains sedated, no longer on paralytic. On same mechanical ventilator settings. Patient is hyponatremic, and per package wrapper receiving 3% NS at 50ml/hr. Bumex IV drip is being held at this time. Patient caldwell output of 2300ml clear yellow urine. Three chest tubes total output 8 ml serosanguinous fluid. Patient remains on Vasopression, Phenelephrine and Norephinerine for BP support. Family updated on care plan and status along with prognosis per hospitalist today.
[2019-12-06 19:55] LABS: Platelet Count (auto) 219 10^3/uL (140-450)
[2019-12-06 19:58] LABS: White Blood Cell 42.3 10^3/uL (4.4-10.8)
[2019-12-06 20:00] LABS: Basophils % (manual) 0 (0.0-2.0); Blast Cells 0; Promyelocytes % 0; Reactive Lymphocytes 0
--- NOTE | 2019-12-06 20:27 | NUR ---
PER DR. BURGESS'S COMMUNICATION ORDER, HOLD 3% FLUID IF NA COMES BACK 120-122. NA CURRENTLY 124. WILL HOLD FOR NOW.
--- NOTE | 2019-12-06 20:32 | NUR ---
Family Daughter called for update, all questions and concerns addressed at this time.
[2019-12-06 20:47] LABS: Eosinophils % (manual) 0 (0-7); Lymphocytes % (manual) 11 (10.0-50.0); Metamyelocytes % 2; Monocytes % (manual) 3 (0-12); Myelocytes % 1
[2019-12-06 20:49] LABS: Band Neutrophils % (manual) 3
--- NOTE | 2019-12-06 21:00 | NUR ---
SEDATION VACATION NOT APPROPRIATE AT THIS TIME. PT TOO HEMODYNAMICALLY UNSTABLE Addendum: 12/06/19 at 2300 by ONUR REN RN Amended: Links added.
[2019-12-06] MEDS: fentaNYL Drip 2500mCg/250mlNS 250 ML IV SCH (21:05)
--- NOTE | 2019-12-06 22:31 | NUR ---
Respiratory note: AT BEDSIDE FOR ROUTINE VENT CHECK AND MED NEB TX. BS ARE FINE COURSE SXD SCANT WARD, MED NEB TX GIVEN VIA AEROGEN. NO ADVERSE REACTION NOTED. WILL CONTINUE TO MONITOR.
[2019-12-06] MEDS: EPINEPHrine HCL 250 ML IV SCH (22:53)
[2019-12-06] MEDS: ATRACURIUM BESYLATE 1,000 MG in D5W 5% 150 ML IV SCH (22:53)
[2019-12-06] MEDS: NOREPINEPHRINE 8 MG/250ML KIT 250 ML IV SCH (23:31)
[2019-12-07] VITALS (105 sets, daily range): BP systolic 28–154; BP diastolic 23–97
[2019-12-07] MEDS: VANCOMYCIN 1GM/250ML 250 ML IV SCH ×2 (01:24→22:30)
[2019-12-07] MEDS: InsuLIN REG 1unit/0.01ml Soln (100units/ml) SC SCH ×4 (01:25→23:00)
[2019-12-07] MEDS: ACCU-CHEK COMFORT CURVE STRIP VI SCH ×5 (01:26→18:00)
--- NOTE | 2019-12-07 01:27 | NUR ---
Labs redrawn as sample was contaminated per lab.
--- NOTE | 2019-12-07 01:28 | NUR ---
ATTEMPTED TO TURN PT, BP DROPPED TO 40'S SYSTOLICALLY. MAYA BLOOD SEEN UNDER PT WHERE CHEST TUBES SITE ARE. REINFORCED CHEST TUBE DRESSING, WILL CLOSELY MONITOR BLEEDING
[2019-12-07 02:03] LABS: Platelet Count (auto) 215 10^3/uL (140-450); Red Cell Distribution Width 13.2 % (11.8-14.3)
[2019-12-07 02:09] LABS: Anion Gap 7 (5-15); Chloride 66 mmol/L (98-107); GFR African American 121 mL/min; GFR Non-African American 100 mL/min; Glucose 287 mg/dL (74-106); Potassium 4.2 mmol/L (3.5-5.1)
[2019-12-07 02:24] LABS: White Blood Cell 41.3 10^3/uL (4.4-10.8)
[2019-12-07 02:25] LABS: BUN/Creatinine Ratio 17.2; Blood Urea Nitrogen 11 mg/dL (7-18); Carbon Dioxide 41 mmol/L (21-32); Sodium 114 mmol/L (136-145)
[2019-12-07] MEDS: PHENYLEPHRINE IV 250 ML IV SCH ×3 (02:34→21:30)
--- NOTE | 2019-12-07 02:50 | NUR ---
NA LEVEL BACK AT 114. 3 % NS RESTARTED AT 50 CCS/HR. PAGED AT THIS TIME
[2019-12-07 03:18] LABS: Hematocrit 21.3 % (36.0-46.0); Hemoglobin 7.5 g/dL (12.2-16.2); Mean Corpuscular Volume 86.9 fL (80.0-100.0); Red Blood Cells 2.45 10^6/uL (4.0-5.20)
[2019-12-07 03:19] LABS: Mean Corpuscular Hemoglobin 30.5 pg (28.0-32.0); Mean Corpuscular Hgb Conc. 35.1 g/dL (32.0-36.0)
[2019-12-07 03:20] LABS: Basophils % (manual) 0 (0.0-2.0); Blast Cells 0; Eosinophils % (manual) 0 (0-7); Promyelocytes % 0; Reactive Lymphocytes 0
[2019-12-07 03:20] LABS: Calcium < 5.0 mg/dL (8.5-10.1)
--- NOTE | 2019-12-07 03:22 | NUR ---
PAGED DR. BURGESS FOR CRITICAL CALCIUM LEVEL <5. BRO DINKEY BRAKEMAN. RECEIVED NEW ORDERS FOR CALCIUM GLUCONATE 3GM IVPB. WILL CARRY OUT. THEN REPEAT CHEM PANEL 1 HOUR AFTER
[2019-12-07] MEDS: CALCIUM GLUC 4.65meq/50ml D5AE 50 ML IV SCH ×3 (03:45→05:45)
[2019-12-07] MEDS: MEROPENEM 1GM IVPB 100 ML IV SCH ×3 (06:00→22:30)
[2019-12-07] MEDS: LEVALBUTEROL HCL 1.25 MG/3 ML NEB NEB SCH ×3 (06:21→22:39)
[2019-12-07] MEDS: IPRATROPIUM BROM 0.5 MG/2.5ML INH SOL NEB SCH ×3 (06:21→22:39)
[2019-12-07 06:46] LABS: Band Neutrophils % (manual) 5; Monocytes % (manual) 3 (0-12)
[2019-12-07 06:48] LABS: Lymphocytes % (manual) 17 (10.0-50.0); Metamyelocytes % 1; Myelocytes % 1
--- NOTE | 2019-12-07 07:08 | NUR ---
End of shift note Report given to JHON Thomason. Care endorsed. Pt had 35 mls of sanguinous fluid out of left chest tube and 35 serosanguineous fluid out of anterior chest tube. 0 mls out of right chest tube. Levophed at 22 mcg/hr. Vasopressin at 0.01 units/min and markus at 40mcg/min. 100% FIO2 with saturations at 93%. Endorsed CHEM Panel draw one hour after calcium gluconate finishes.
--- NOTE | 2019-12-07 07:33 | NUR ---
Received report from Lucita FERREIRA Patient remains on PC vent settings, SPO2 92-94% p.m. shift. RR 24. Right lateral chest tube- zero output, right anterior pleural/chest tube- serosanguionous output, left lateral chest tube-serosanguionous, all patent to gravity. Patient has chris blood from lateral sights. NS-tachycardia sustained p.m. shift 120's. BP support Levo @ 22mcg/min, Vasopression 0.01 u/min, Aden 30 mcg/min - BP 118/66. Pulses present. Breath sounds wheezing, course. ETT tube no secretions, oral secretions brown small. No bowel sounds. Extremities flaccid. Temp 99.3. Landeros to gravity 75ml at shift change, green/yellow clear. Left central line 3x lumen patent, left PIV 20g hand patent. Will continue to monitor.
--- NOTE | 2019-12-07 08:00 | NUR ---
Lab draw Technicians not available at this time to draw patient. Will come as soon as available.
--- NOTE | 2019-12-07 08:15 | NUR ---
Lab unable to draw blood this a.m. from patient. Will send another surgical technician to try.
[2019-12-07] MEDS: MIDAZOLAM DRIP 50 mg/50mL 50 ML IV SCH (08:20)
--- NOTE | 2019-12-07 08:58 | NUR ---
Lab unable to draw from patient, she is a hard stick. RN will try and draw from PIV, turn off all meds. Turning of 3% NS in order to assess Na+ level before resuming.
[2019-12-07] MEDS: PROPOFOL 100 ML IV SCH ×2 (09:13→13:44)
[2019-12-07] MEDS: fentaNYL Drip 2500mCg/250mlNS 250 ML IV SCH (09:14)
--- NOTE | 2019-12-07 09:14 | NUR ---
Daughter Kenzie Chen called this morning for update on patient. All questions answered. Over the phone consent for PICC line insertion and Arterial Line insertion. Co -witness Aishwarya FERREIRA.
--- NOTE | 2019-12-07 09:30 | NUR ---
RN turned off medications and flushed left PIV Was able to draw a.m. CBC, BMP - samples given to label printing machinist on floor.
[2019-12-07] MEDS: ZINC SULFATE 220mg CAP or TAB PO SCH (10:00)
[2019-12-07] MEDS: CHOLECALCIFEROL (VITD3) 1,000UNIT=25mCg TAB PO SCH (10:00)
[2019-12-07] MEDS: ASCORBIC ACID 1,000 MG TAB PO SCH (10:00)
--- NOTE | 2019-12-07 10:15 | NUR ---
RN in room to draw labs and administer a.m. oral medications. RN lowered head of bed to assess patient tolerance to repositioning. After 5 minutes patient SPO2 went to 88% and BP to 87/54. Patient repositioned back to HOB 45 degrees, legs lowered, patients saturation returned to 93% BP 126/71.
--- NOTE | 2019-12-07 10:28 | NUR ---
Critical labs WBC44.6 Fallon anel @ [facility]
--- NOTE | 2019-12-07 10:52 | NUR ---
Lab called, [facility]. Yesterday [facility] could not process it.
[2019-12-07 11:14] LABS: Albumin 1.8 g/dL (3.4-5.0); Magnesium 1.4 mg/dL (1.6-2.6); Potassium 3.9 mmol/L (3.5-5.1)
--- NOTE | 2019-12-07 11:14 | NUR ---
Waiting on BMP lab draw results from lab, pending.
--- NOTE | 2019-12-07 11:45 | NUR ---
Lab called, a.m. labs have to be redrawn again to abnormal results. Will release Na+ which is 112,but due to inaccuracies in rest of BMP , will hold 3% normal saline IV drip.
--- NOTE | 2019-12-07 12:05 | NUR ---
Dr. Nix bedside. New order for 3% NS , Bumem 2x daily. Patient corrected sodium p.m. shift last night. Now Na+ is 117.
[2019-12-07] MEDS ORDERED: CALCIUM GLUC 4.65meq/50ml D5AE 50 ML IV ONE ×2 (12:30)
[2019-12-07] MEDS ORDERED: SODIUM CHL 3% 500 ML IV ONE ×2 (12:30)
[2019-12-07] MEDS ORDERED: MAGNESIUM SULFATE 1GM/100ML 100 ML IV SCH (13:00)
--- NOTE | 2019-12-07 13:19 | NUR ---
Pharmacy, making up new IV drips with 0.9% NS per order Dr. Rodrigues, patient is in [facility].
[2019-12-07] MEDS: BUMETANIDE 2.5mg/10ml (0.25 mg/ml) INJ IV SCH ×2 (13:43→18:00)
[2019-12-07] MEDS ORDERED: CALCIUM GLUC IV ONE (13:45)
[2019-12-07] MEDS ORDERED: SODIUM CHL 0.9% IV ONE ×2 (13:45→14:00)
--- NOTE | 2019-12-07 13:54 | NUR ---
Pharmacy Spoke with pharmacist tubing up 50 ml bags 0.9% NS to make versed IV sedation.
[2019-12-07] MEDS ORDERED: CALCIUM GLUC 4.65 MEQ/10ML 4.65 MEQ in SODIUM CHL 0.9% 50 ML IV ONE (14:00)
[2019-12-07] MEDS ORDERED: MAGNESIUM SULF IV ONE (14:00)
[2019-12-07] MEDS: acetaZOLAMIDE SODIUM 500 MG VL IV SCH ×2 (14:00→22:00)
--- NOTE | 2019-12-07 14:09 | NUR ---
Pharm[facility] will be making up Versed for patient with 0.9% NS. Will send up 6 bags to last until tomorrow 0600 shift.
[2019-12-07 14:12] LABS: BUN/Creatinine Ratio 16.7
[2019-12-07 14:14] LABS: Bilirubin, Total 0.9 mg/dL (0.2-1.0); Phosphorus 1.3 mg/dL (2.5-4.90)
[2019-12-07] MEDS: POTASSIUM CHL 20MEQ/100ML 100 ML IV SCH ×2 (14:30→16:13)
[2019-12-07] MEDS: NOREPINEPHRINE 8 MG/250ML KIT 250 ML IV SCH (16:10)
[2019-12-07] MEDS ORDERED: BUMETANIDE 2.5mg/10ml (0.25 mg/ml) INJ IV SCH (18:00)
[2019-12-07 19:29] LABS: Platelet Count (auto) 185 10^3/uL (140-450); Red Cell Distribution Width 13.2 % (11.8-14.3)
--- NOTE | 2019-12-07 19:30 | NUR ---
REPORT RECEIVED, ASSUMED CARE.
--- NOTE | 2019-12-07 19:57 | NUR ---
PICC line placement Patient significant other educated on need for PICC line placement. All risks and benefits explained and all questions and concerns addressed prior to procedure. Noted past medical history and allergies with no contraindications. INR and Plt counts within acceptable range. 6 fr PICC line inserted via RIGHT CEPHALIC vein using [employer]'s [employer] US and Tip Location System. Sterile technique with maximum barrier precautions utilized. Blood return obtained from each of 3 lumens and each flushed easily with NS using proper technique. PICC secured with Stat-lock; biodisc and occlusive dressing applied. Stat portable chest x-ray obtained for PICC tip placement. *Baseline Arm Circumference 31CM. INTERNAL LENGHT 37 CM EXTERNAL L. 0 CM PICC lot # [id number]. Note:
[2019-12-07] MEDS ORDERED: SODIUM PHOSPHATES 24 MEQ in SODIUM CHL 0.9% 100 ML IV ONE (20:00)
--- NOTE | 2019-12-07 20:31 | NUR ---
Report given to Brent FERREIRA.
[2019-12-07 20:50] LABS: Hematocrit 21.4 % (36.0-46.0); Red Blood Cells 2.43 10^6/uL (4.0-5.20)
[2019-12-07 20:51] LABS: Mean Corpuscular Hemoglobin 28.6 pg (28.0-32.0); Mean Corpuscular Hgb Conc. 32.5 g/dL (32.0-36.0)
[2019-12-07 20:55] LABS: Basophils % (manual) 0 (0.0-2.0); Blast Cells 0; Metamyelocytes % 0; Myelocytes % 0; Promyelocytes % 0; Reactive Lymphocytes 0
[2019-12-07 21:28] LABS: Potassium 3.2 mmol/L (3.5-5.1)
[2019-12-07 21:29] LABS: BUN/Creatinine Ratio 16.3; Calcium 5.8 mg/dL (8.5-10.1)
--- NOTE | 2019-12-07 21:33 | NUR ---
OK to use PICC line Xray completed. OK to use PICC line by RADIOLOGIST.
[2019-12-07] MEDS ORDERED: LIDOCAINE 1% (LOCAL ANESTH.) PF 5ml SDV ID ONE (21:45)
[2019-12-07] MEDS: MIDAZOLAM HCL 50 MG in SODIUM CHL 0.9% 50 ML IV SCH (22:00)
[2019-12-07] MEDS: SODIUM CHLOR 0.9% PF (SALINE LOCK) 10ML VIAL/SYR IV SCH (22:00)
[2019-12-07 22:26] LABS: Band Neutrophils % (manual) 9; Lymphocytes % (manual) 16 (10.0-50.0)
[2019-12-07 22:27] LABS: Eosinophils % (manual) 1 (0-7); Monocytes % (manual) 2 (0-12)
[2019-12-07 22:30] LABS: Calcium 6.8 mg/dL (8.5-10.1)
[2019-12-07] MEDS: ATRACURIUM BESYLATE 1,000 MG in D5W 5% 150 ML IV SCH (22:53)
[2019-12-07] MEDS: EPINEPHrine HCL 250 ML IV SCH (22:53)
[2019-12-07] MEDS: VASOPRESSIN 50 UNITS in D5W 5% 247.5 ML IV SCH (23:12)
[2019-12-08] VITALS (104 sets, daily range): BP systolic 79–175; BP diastolic 39–83
[2019-12-08] MEDS ORDERED: hydrOXYchloroQUINE SULFATE 200 MG TAB PO SCH ×2 (00:15)
[2019-12-08] MEDS ORDERED: MIDAZOLAM DRIP 50 mg/50mL 50 ML IV ONE (00:52)
[2019-12-08] MEDS: PHENYLEPHRINE IV 250 ML IV SCH ×3 (01:00→20:14)
[2019-12-08] MEDS: MIDAZOLAM HCL 50 MG in SODIUM CHL 0.9% 50 ML IV SCH ×2 (01:00→10:17)
[2019-12-08] MEDS: NOREPINEPHRINE 8 MG/250ML KIT 250 ML IV SCH ×2 (01:00→10:22)
[2019-12-08] MEDS: methylPREDNISolone SOD SUCC 40 MG/ML VL IV SCH ×3 (01:39→22:40)
[2019-12-08] MEDS: DOXYCYCLINE 100 MG TAB/CAP PO SCH ×3 (01:39→22:41)
[2019-12-08 01:53] LABS: BUN/Creatinine Ratio 20.6; Calcium 6.5 mg/dL (8.5-10.1)
[2019-12-08 02:27] LABS: Potassium 2.6 mmol/L (3.5-5.1)
--- NOTE | 2019-12-08 02:42 | NUR ---
NOTIFIED [employer] EXCHANGE, SPOKE MD BRO REGARDING K+ 2.6, ORDERS RECEIVED. WILL CONT TO MONITOR AND GIVE IN REPORT.
[2019-12-08] MEDS ORDERED: POTASSIUM EFFERVESENT TAB 25 MEQ GT ONE (02:45)
[2019-12-08] MEDS: VANCOMYCIN 1GM/250ML 250 ML IV SCH ×2 (05:10→21:02)
[2019-12-08] MEDS: POTASSIUM EFFERVESENT TAB 25 MEQ GT SCH ×2 (05:51→10:16)
[2019-12-08] MEDS: BUMETANIDE 2.5mg/10ml (0.25 mg/ml) INJ IV SCH ×2 (05:51→18:09)
[2019-12-08] MEDS: MEROPENEM 1GM IVPB 100 ML IV SCH ×3 (05:56→22:40)
[2019-12-08] MEDS: acetaZOLAMIDE SODIUM 500 MG VL IV SCH ×3 (06:13→22:40)
[2019-12-08] MEDS: ACCU-CHEK COMFORT CURVE STRIP VI SCH ×4 (06:13→18:09)
[2019-12-08] MEDS: InsuLIN REG 1unit/0.01ml Soln (100units/ml) SC SCH ×4 (06:22→18:16)
[2019-12-08] MEDS: IPRATROPIUM BROM 0.5 MG/2.5ML INH SOL NEB SCH ×3 (06:33→22:42)
[2019-12-08] MEDS: LEVALBUTEROL HCL 1.25 MG/3 ML NEB NEB SCH ×3 (06:33→22:42)
--- NOTE | 2019-12-08 07:30 | NUR ---
Respiratory note: DR DUNBAR CALLED, AND LM WITH PT CRITICAL ABG VALUES. WILL CALL AGAIN IN 15 MINUTES. RN MADE AWARE.
--- NOTE | 2019-12-08 07:45 | NUR ---
Respiratory note: DR DUNBAR LEFT SECOND MESSAGE REGARDING PT CRITICAL ABG VALUES. RN MADE AWARE.
--- NOTE | 2019-12-08 08:02 | NUR ---
Respiratory note: JHON HERNANDEZ INFORMED ME THAT DR DUNBAR TEXT HER REGARDING PT CRITICAL ABG RESULTS. SHE STATED THAT DR DUNBAR WILL BE IN SHORTLY TO ASSES PT.
--- NOTE | 2019-12-08 08:33 | NUR ---
Respiratory note: DR DUNBAR GAVE VERBAL ORDER TO INCREASE PT RR FROM 18, TO 24, TITRATED FIO2 FROM 100%, TO 85% TO MAINTAIN SPO2 > 88%, AND TO PLACE PT ON CONTINUOUS ETCO2 MONITORING. PT TOLERATED CHANGES WELL. ABG ORDERED AT NOON POST VENT CHANGES. RN AWARE. CHARTING COMPLETE FROM OUTSIDE OF PT ROOM. WILL CONTINUE TO MONITOR PT.
--- NOTE | 2019-12-08 08:37 | NUR ---
dr childs ordered tube feedings and accuchecks, aware abg is being done at this time Addendum: 12/08/19 at 0838 by Corby Tariq RN wrong patient
[2019-12-08] MEDS: ZINC SULFATE 220mg CAP or TAB PO SCH (10:17)
[2019-12-08] MEDS: ASCORBIC ACID 1,000 MG TAB PO SCH (10:17)
[2019-12-08] MEDS: CHOLECALCIFEROL (VITD3) 1,000UNIT=25mCg TAB PO SCH (10:18)
[2019-12-08] MEDS: fentaNYL Drip 2500mCg/250mlNS 250 ML IV SCH (10:21)
[2019-12-08] MEDS: SODIUM CHLOR 0.9% PF (SALINE LOCK) 10ML VIAL/SYR IV SCH ×2 (10:45→22:40)
[2019-12-08] MEDS ORDERED: Glucerna 1.2 Cal 1Liter BOTTLE GT SCH (10:45)
--- NOTE | 2019-12-08 11:00 | NUR ---
OK TO START TUBE FEEDINGS PER DR FRANCOIS RECOMMENDED BY OXYGRAPH OPERATOR
[2019-12-08 11:24] LABS: Hematocrit 31.2 % (36.0-46.0); Hemoglobin 10.6 g/dL (12.2-16.2); Mean Corpuscular Hemoglobin 29.7 pg (28.0-32.0); Mean Corpuscular Hgb Conc. 33.8 g/dL (32.0-36.0); Mean Corpuscular Volume 87.7 fL (80.0-100.0); Platelet Count (auto) 115 10^3/uL (140-450); Red Blood Cells 3.56 10^6/uL (4.0-5.20); Red Cell Distribution Width 13.7 % (11.8-14.3)
[2019-12-08 11:27] LABS: White Blood Cell 45.8 10^3/uL (4.4-10.8)
--- NOTE | 2019-12-08 11:27 | NUR ---
Nutrition Assessment Note please see attached link for complete assessment Est Energy needs ABW [id number] kcals (23-25 kcal/kgBW), Est Protein needs: 62-68 gms/day (1.0-1.1 gm/kgBW). Will continue to monitor and reassess prn. Addendum: 12/08/19 at [address] Amended: Links added. Addendum: 12/08/19 at [address] wrong patient please ignore
[2019-12-08 11:28] LABS: Basophils % (manual) 0 (0.0-2.0); Blast Cells 0; Eosinophils % (manual) 0 (0-7); Metamyelocytes % 0; Myelocytes % 0; Promyelocytes % 0; Reactive Lymphocytes 0
[2019-12-08 11:56] LABS: INR 1.21 (0.9-1.15)
[2019-12-08 11:57] LABS: Partial Thromboplastin Time < 20.0 sec (23.64-32.05)
[2019-12-08 12:00] LABS: Band Neutrophils % (manual) 4; Lymphocytes % (manual) 1 (10.0-50.0); Monocytes % (manual) 2 (0-12)
[2019-12-08 12:08] LABS: Bilirubin, Direct 0.3 mg/dL (0-0.2); Magnesium 1.9 mg/dL (1.6-2.6)
[2019-12-08 12:11] LABS: Bilirubin, Total 0.9 mg/dL (0.2-1.0); Total Protein 4.5 g/dL (6.4-8.2)
--- NOTE | 2019-12-08 12:30 | NUR ---
SPOKE WITH DAUGHTER UPDATED ON PLAN OF CARE AFTER PASSWORD OBTAINED AND ALL QUESTIONS ADDRESSED.
--- NOTE | 2019-12-08 13:30 | NUR ---
Respiratory note: DR DUNBAR READ BACK ABG CRITICAL VALUES, AND ORDERED NO NEW VENT CHANGES AT THIS TIME. WILL CONTINUE TO MONITOR PT.
--- NOTE | 2019-12-08 13:30 | NUR ---
Respiratory note: FIO2 INCREASED FROM 85%, TO 100% FIO2 DUE TO PT DESATURATIONS TO MID 80'S AFTER BEING MOVED. RN AT BEDSIDE. WILL CONTINUE TO MONITOR PT.
[2019-12-08 13:52] LABS: BUN/Creatinine Ratio 19.5; Calcium 6.7 mg/dL (8.5-10.1); Potassium 3.3 mmol/L (3.5-5.1)
--- NOTE | 2019-12-08 14:01 | NUR ---
Nutrition Followup Note Wt: 77.4 kg Pt`s covid +. Pt intubated and sedated off propofol. If pt remains NPO per RN with no new diet orders. RN informed of diet rec per MD approval. Will continue to monitor PO status, skin status, pertinent labs and weight trends. Will f/u in 3-5 days. Est Energy needs: [id number] kcals (20-23 kcal/kgBW), Est Protein needs: 50-62 gms/day (0.8-1.0 gm/kgBW). Will continue to monitor and reassess prn. Labs: CA 6.5 L, GLU 154 H, ALB 2.6 L, CO2 39 H, ALB 1.8 L BM: Pt had 1 BM on 12/04 per RN doc Skin: BS 8, high risk, full wound care details in RN doc PES: 1) Inadequate oral intake aeb pt with ave of 38% PO intake over 4 meals r/t pt with a poor appetite 2) Altered nutrition related lab values aeb hyperglycemia, hypocalcemia, elev LFTs, elev Alk Phos, mod hypoalbuminemia r/t current medical condition Comments Will continue to closely monitor pertinent labs, PO status and skin status prn. Will followup in 2-3 days 1) If pt NPO >48 hours consider alternate nutrition 2) If TF is recommended consider Glucerna 1.2 at 50 ml/hr per MD approval if off propofol 3) Advance diet as medically feasible 4) Continue current plan of care
--- NOTE | 2019-12-08 14:16 | NUR ---
HOSPITALIST VISITS DR Getachew REGAN UPDATED ON PATIENT'S STATUS AND DECREASE OF VASOPRESSORS. NO ORDERS RECEIVED AT THIS TIME. THIS NURSE COVERING AM NURSE FOR LUNCH.
--- NOTE | 2019-12-08 19:15 | NUR ---
Opening Note received report from madison saldivar. patient intubated and sedated on fentanyl versed, hypoactive cough gag. tolerating ventilator. stating >90% spo2 on bedside monitor. ventilator settings are pc 24 pip 24 peep 12 and 80% fio2. Coordinating with respiratory therapist to manage ventilation. Right lateral, Right anterior and left lateral chest tubes to continuous wall suction. draining minimal serosanguineous fluid. all CT dressing are cdi, no leaks. Sinus Tachycardia 117 on beside monitor with bp 120/60 on 17 of levo. Left IJ TLC CDI, Patent and transfusing medication and cvp monitoring. right femoral arterial line CDI. Zeroed both cvp monitoring and arterial line. CVP on initial assessment is 5. Right upper arm picc line CDI, patent and transfusing medications. OGT patent, transfusing feeding @ rate of 10, residual is 350. Held feeding at this time. Landeros patent, to gravity. unable to completely turn patient and assess anterior side due to hemodynamic instability. making small turns with smaller pillows to offload pressure on sides of patient. bed locked and in lowest position. Following hospital policy and procedures for Positive Covid 19 patient. negative pressure room. for more information see interventions. for gtts and their titrations see iv spread sheet.
[2019-12-08] MEDS: PROPOFOL 100 ML IV SCH (20:50)
[2019-12-08] MEDS: ATRACURIUM BESYLATE 1,000 MG in D5W 5% 150 ML IV SCH (22:41)
[2019-12-08] MEDS: EPINEPHrine HCL 250 ML IV SCH (22:41)
[2019-12-08] MEDS: ALBUTEROL SULF HFA 90MCG INH 200DOSE IN SCH (22:43)
[2019-12-08 22:52] LABS: BUN/Creatinine Ratio 26.1; Potassium 3.4 mmol/L (3.5-5.1)
--- NOTE | 2019-12-08 23:24 | NUR ---
paged provider service representative spoke with md green, updated on patient serum co2 43. aware, no new orders received.
[2019-12-09] VITALS (106 sets, daily range): BP systolic 82–153; BP diastolic 48–81
[2019-12-09] MEDS: InsuLIN REG 1unit/0.01ml Soln (100units/ml) SC SCH ×4 (00:30→18:23)
[2019-12-09] MEDS: PHENYLEPHRINE IV 250 ML IV SCH ×3 (00:45→19:45)
[2019-12-09] MEDS: VASOPRESSIN 50 UNITS in D5W 5% 247.5 ML IV SCH (03:15)
[2019-12-09] MEDS: fentaNYL Drip 2500mCg/250mlNS 250 ML IV SCH ×2 (03:26→22:00)
[2019-12-09] MEDS: NOREPINEPHRINE 8 MG/250ML KIT 250 ML IV SCH (03:26)
[2019-12-09 04:40] LABS: Hematocrit 28.1 % (36.0-46.0); Hemoglobin 9.8 g/dL (12.2-16.2); Mean Corpuscular Hemoglobin 30.9 pg (28.0-32.0); Mean Corpuscular Hgb Conc. 34.8 g/dL (32.0-36.0); Mean Corpuscular Volume 88.7 fL (80.0-100.0); Platelet Count (auto) 139 10^3/uL (140-450); Red Blood Cells 3.17 10^6/uL (4.0-5.20); Red Cell Distribution Width 13.7 % (11.8-14.3)
[2019-12-09 04:55] LABS: INR 1.21 (0.9-1.15); Partial Thromboplastin Time 21.1 sec (23.64-32.05)
[2019-12-09 04:57] LABS: Calcium 7.3 mg/dL (8.5-10.1); Potassium 3.2 mmol/L (3.5-5.1)
[2019-12-09 05:02] LABS: Albumin 2.1 g/dL (3.4-5.0); Bilirubin, Direct 0.3 mg/dL (0-0.2); Bilirubin, Total 0.6 mg/dL (0.2-1.0); Magnesium 2.1 mg/dL (1.6-2.6); Total Protein 4.5 g/dL (6.4-8.2)
[2019-12-09 05:11] LABS: White Blood Cell 39.6 10^3/uL (4.4-10.8)
[2019-12-09 05:12] LABS: Band Neutrophils % (manual) 0; Basophils % (manual) 0 (0.0-2.0); Blast Cells 0; Metamyelocytes % 0; Myelocytes % 0; Promyelocytes % 0; Reactive Lymphocytes 0
--- NOTE | 2019-12-09 05:45 | NUR ---
Updated Cleaning Laborer K3.2, updated md green, received order for 40meq julian guy
[2019-12-09 05:46] LABS: Eosinophils % (manual) 2 (0-7); Lymphocytes % (manual) 2 (10.0-50.0); Monocytes % (manual) 5 (0-12)
[2019-12-09] MEDS: ACCU-CHEK COMFORT CURVE STRIP VI SCH ×4 (06:12→18:00)
[2019-12-09] MEDS: BUMETANIDE 2.5mg/10ml (0.25 mg/ml) INJ IV SCH ×2 (06:20→18:00)
[2019-12-09] MEDS: POTASSIUM CHL 20MEQ/100ML 100 ML IV SCH ×4 (06:21→18:23)
[2019-12-09] MEDS: MEROPENEM 1GM IVPB 100 ML IV SCH ×3 (06:21→22:06)
[2019-12-09] MEDS: IPRATROPIUM BROM 0.5 MG/2.5ML INH SOL NEB SCH ×3 (06:41→22:29)
[2019-12-09] MEDS: LEVALBUTEROL HCL 1.25 MG/3 ML NEB NEB SCH ×3 (06:42→22:29)
--- NOTE | 2019-12-09 06:45 | NUR ---
Respiratory note: PT RECEIVED ON VENT # V21, PLUGGED INTO A RED OUTLET AND PROPER O2 SOURCE.AMBU BAG AT BEDSIDE. ALARMS ARE PROPERLY SET,FUNCTIONING,AND AUDIBLE. ETT SECURED WITH A HOLISTER AND MOVED TO THE RIGHT. NO LIP BREAKDOWN NOTED.BILATERAL BS ARE CLEAR AN DIMINISHED THROUGHOUT.MED NEB TX GIVEN VIA AEROGEN, TOLERATED WELL.SKIN IS WARM AND DRY TO THE TOUCH WITH NO EDEMA NOTED ON ANY APPENDICULARS.ABG OBTAINED. POC:MAINTAIN ADEQUATE OXYGENATION,VENTILATION,AND PULMONARY HYGIENE.
--- NOTE | 2019-12-09 08:30 | NUR ---
TURNING HELD AT THIS TIME PATIENT NOT STABLE FOR TURNING, DESATURATION. PATIENT CURRENTLY ON 100%Fi02. WILL CONTINUE TO REASSESS
--- NOTE | 2019-12-09 09:04 | NUR ---
SEDATION VACATION HELD- HEMODYNAMICALLY UNSTABLE Addendum: 12/09/19 at 0905 by Nereida Hastings RN Amended: Links added.
[2019-12-09] MEDS: SODIUM CHLOR 0.9% PF (SALINE LOCK) 10ML VIAL/SYR IV SCH ×2 (10:00→22:07)
[2019-12-09] MEDS: methylPREDNISolone SOD SUCC 40 MG/ML VL IV SCH ×2 (10:01→22:07)
[2019-12-09] MEDS: ZINC SULFATE 220mg CAP or TAB PO SCH (10:01)
[2019-12-09] MEDS: DOXYCYCLINE 100 MG TAB/CAP PO SCH ×2 (10:01→22:07)
[2019-12-09] MEDS: CHOLECALCIFEROL (VITD3) 1,000UNIT=25mCg TAB PO SCH (10:02)
[2019-12-09] MEDS: ASCORBIC ACID 1,000 MG TAB PO SCH (10:02)
[2019-12-09 10:20] LABS: BUN/Creatinine Ratio 36.4; Calcium 7.6 mg/dL (8.5-10.1); Potassium 3.3 mmol/L (3.5-5.1)
--- NOTE | 2019-12-09 10:53 | NUR ---
WOUND CARE NOTE: Wound care to see patient for skin integrity monitoring. Patient continue resting on ICU bed in Rm. 105. Patient is intubated and mechanically ventilated. Patient appears to be in no pain using Horan Gonzalez Faces Pain Scale. Her Americo score is 8. Per bedside nurse, patient has no wound to anterior upper and lower extremities other than chest tube insertion site. Patient has generalized edema and so extremities are offloading on pillows. She added that unable to do full turning due to patient desaturates. She continued further that they minimally offloading of pressure points by inserting pillows but not recommending full turning at this time. Advised nurse to call wound care if patient condition changed and will be able to turn to assess sacral and back. Wound care will try to see patent at later time. RECOMMENDATION: Continuation of all wound care orders prescribed by MD, continue with skin/wound plan of care, continue monitoring by wound care while patient is hospitalized.
[2019-12-09] MEDS: VANCOMYCIN 1GM/250ML 250 ML IV SCH (11:11)
--- NOTE | 2019-12-09 11:20 | NUR ---
PATIENTS DAUGHTER CALLED FOR UPDATE PROVIDED PASSWORD. UPDATED ON CURRENT STATUS. ADDRESSED CONCERNS
--- NOTE | 2019-12-09 13:40 | NUR ---
DR Tiffanie REGAN AT BEDSIDE NO NEW ORDERS AT THIS TIME
--- NOTE | 2019-12-09 13:45 | NUR ---
DR BRO AT BEDSIDE NO NEW ORDERS AT THIS TIME
[2019-12-09] MEDS: MIDAZOLAM HCL 50 MG in SODIUM CHL 0.9% 50 ML IV SCH (14:15)
--- NOTE | 2019-12-09 16:23 | NUR ---
DR DUNBAR REVIEWED CXR. AWARE OF FINDINGS. NO VENT SETTING CHANGES AT THIS TIME. PATIENT IS STILL REQUIRING HIGH PERCENTAGE OF Fi02
--- NOTE | 2019-12-09 19:20 | NUR ---
Opening Note received report from madison saldivar. patient intubated and sedated on fentanyl versed, hypoactive cough gag. tolerating ventilator. stating >95% spo2 on bedside monitor. ventilator settings are pc 24 pip 24 peep 12 and 95% fio2. Coordinating with respiratory therapist to manage ventilation. Right lateral, Right anterior and left lateral chest tubes to continuous wall suction. draining minimal serosanguineous fluid. all CT dressing are cdi, no leaks. Sinus Tachycardia 117 on beside monitor with bp 122/62. Left IJ TLC CDI, Patent and transfusing medication and cvp monitoring. right femoral arterial line CDI. Zeroed both cvp monitoring and arterial line. CVP on initial assessment is 5. Right upper arm picc line CDI, patent and transfusing medications. OGT patent, clampted, with 60ml of black residual. Feeding held. Landeros patent, to gravity. unable to completely turn patient and assess anterior side due to hemodynamic instability. making small turns with smaller pillows to offload pressure on sides of patient. bed locked and in lowest position. Following hospital policy and procedures for Positive Covid 19 patient. negative pressure room. for more information see interventions. for gtts and their titrations see iv spread sheet.
[2019-12-09] MEDS: PROPOFOL 100 ML IV SCH (19:45)
--- NOTE | 2019-12-09 21:30 | NUR ---
RECEIVED CALL FROM DAUGHTER UPDATED DAUGHTER ON PATIENT STATUS AFTER RECEIVING CORRECT PASSWORD. ALL QUESTIONS ADDRESSED AT THIS TIME.
[2019-12-09] MEDS: ALBUTEROL SULF HFA 90MCG INH 200DOSE IN SCH (22:00)
[2019-12-09] MEDS: acetaZOLAMIDE SODIUM 500 MG VL IV SCH (22:06)
[2019-12-09] MEDS: EPINEPHrine HCL 250 ML IV SCH (22:07)
[2019-12-09] MEDS: ATRACURIUM BESYLATE 1,000 MG in D5W 5% 150 ML IV SCH (22:07)
[2019-12-09 22:09] LABS: Mean Corpuscular Hemoglobin 30.4 pg (28.0-32.0); Mean Corpuscular Hgb Conc. 33.1 g/dL (32.0-36.0); Mean Corpuscular Volume 91.6 fL (80.0-100.0); Platelet Count (auto) 134 10^3/uL (140-450); Red Blood Cells 2.95 10^6/uL (4.0-5.20); Red Cell Distribution Width 14.4 % (11.8-14.3)
[2019-12-09 22:14] LABS: Band Neutrophils % (manual) 0; Basophils % (manual) 0 (0.0-2.0); Blast Cells 0; Eosinophils % (manual) 0 (0-7); Metamyelocytes % 0; Myelocytes % 0; Promyelocytes % 0; Reactive Lymphocytes 0
[2019-12-09 22:25] LABS: Lymphocytes % (manual) 3 (10.0-50.0); Monocytes % (manual) 2 (0-12)
[2019-12-09 22:27] LABS: BUN/Creatinine Ratio 52.6; Calcium 7.9 mg/dL (8.5-10.1); Potassium 3.3 mmol/L (3.5-5.1)
[2019-12-09 22:40] LABS: Albumin 2.2 g/dL (3.4-5.0); Bilirubin, Direct 0.3 mg/dL (0-0.2); Bilirubin, Total 0.7 mg/dL (0.2-1.0); Magnesium 2.2 mg/dL (1.6-2.6); Total Protein 4.5 g/dL (6.4-8.2)
[2019-12-10] VITALS (105 sets, daily range): BP systolic 81–165; BP diastolic 46–87
[2019-12-10] MEDS: ACCU-CHEK COMFORT CURVE STRIP VI SCH ×4 (01:00→18:00)
[2019-12-10] MEDS: InsuLIN REG 1unit/0.01ml Soln (100units/ml) SC SCH ×4 (01:00→18:00)
[2019-12-10] MEDS: VANCOMYCIN 1GM/250ML 250 ML IV SCH ×2 (01:49→18:03)
[2019-12-10] MEDS: VASOPRESSIN 50 UNITS in D5W 5% 247.5 ML IV SCH (03:15)
[2019-12-10] MEDS: PHENYLEPHRINE IV 250 ML IV SCH ×3 (03:28→22:14)
--- NOTE | 2019-12-10 04:00 | NUR ---
unable to turn patient due to hemodynamic instability
[2019-12-10 04:55] LABS: Basophils # (auto) 0 10 ^3/uL (0-0.2); Basophils % (auto) 0.2 % (0.0-2.0); Eosinophils # (auto) 0 10 ^3/uL (0-0.8); Hematocrit 27.3 % (36.0-46.0); Hemoglobin 9.3 g/dL (12.2-16.2); Lymphocytes # (auto) 0.6 10 ^3/uL (0.4-5.4); Lymphocytes % (auto) 2.4 % (10.0-50.0); Mean Corpuscular Hemoglobin 30.7 pg (28.0-32.0); Mean Corpuscular Volume 90.3 fL (80.0-100.0); Monocytes # (auto) 0.9 10 ^3/uL (0-1.3); Monocytes % (auto) 3.2 % (0.0-12.0); Neutrophils # (auto) 25.4 10 ^3/uL (1.6-8.6); Neutrophils % (auto) 94.2 % (37.0-80.0); Nucleated Red Blood Cells % 0.9 %; Platelet Count (auto) 134 10^3/uL (140-450); Red Blood Cells 3.02 10^6/uL (4.0-5.20); Red Cell Distribution Width 14.1 % (11.8-14.3)
[2019-12-10 05:17] LABS: INR 1.13 (0.9-1.15)
[2019-12-10 05:23] LABS: Albumin 2.3 g/dL (3.4-5.0); BUN/Creatinine Ratio 52.4; Bilirubin, Direct 0.4 mg/dL (0-0.2); Bilirubin, Total 0.8 mg/dL (0.2-1.0); Calcium 8.2 mg/dL (8.5-10.1); Magnesium 2.2 mg/dL (1.6-2.6)
[2019-12-10] MEDS: MEROPENEM 1GM IVPB 100 ML IV SCH ×3 (05:37→21:55)
[2019-12-10] MEDS: BUMETANIDE 2.5mg/10ml (0.25 mg/ml) INJ IV SCH ×2 (05:37→18:53)
[2019-12-10] MEDS: LEVALBUTEROL HCL 1.25 MG/3 ML NEB NEB SCH ×3 (06:48→22:47)
[2019-12-10] MEDS: IPRATROPIUM BROM 0.5 MG/2.5ML INH SOL NEB SCH ×3 (06:48→22:47)
--- NOTE | 2019-12-10 07:30 | NUR ---
REPORT RECEIVED FROM SAP BASIS CONSULTANT NURSE. PATIENT RESTING IN BED AT THIS TIME. RESPIRATIONS EVEN BUT LABORED WITH USE OF ACCESSORY MUSCLES. INCREASED SEDATION PER PROTOCOL. BED IN LOW POSITION, WILL CONTINUE TO MONITOR.
[2019-12-10] MEDS: fentaNYL Drip 2500mCg/250mlNS 250 ML IV SCH ×2 (08:13→19:41)
--- NOTE | 2019-12-10 09:12 | NUR ---
EKG PERFORMED DUE TO INCREASED HEART RATE TO VERIFY RHYTHM. Addendum: 12/10/19 at 2112 by Cindy Suarez RN WRONG PATIENT
--- NOTE | 2019-12-10 09:21 | NUR ---
UPDATED DAUGHTER ON PATIENT CURRENT STATUS. ALL QUESTIONS AND CONCERNS ADDRESSED AT THIS TIME.
--- NOTE | 2019-12-10 09:30 | NUR ---
PAGED DR Getachew SANDOVAL FOR POTASSIUM OF 3.0 AWAITING CALL BACK.
[2019-12-10] MEDS: DOXYCYCLINE 100 MG TAB/CAP PO SCH ×2 (10:16→22:08)
[2019-12-10] MEDS: ASCORBIC ACID 1,000 MG TAB PO SCH (10:16)
[2019-12-10] MEDS: MIDAZOLAM HCL 50 MG in SODIUM CHL 0.9% 50 ML IV SCH ×3 (10:16→19:13)
[2019-12-10] MEDS: ZINC SULFATE 220mg CAP or TAB PO SCH (10:16)
[2019-12-10] MEDS: methylPREDNISolone SOD SUCC 40 MG/ML VL IV SCH ×2 (10:17→21:54)
[2019-12-10] MEDS: CHOLECALCIFEROL (VITD3) 1,000UNIT=25mCg TAB PO SCH (10:17)
[2019-12-10] MEDS: SODIUM CHLOR 0.9% PF (SALINE LOCK) 10ML VIAL/SYR IV SCH ×2 (10:17→21:54)
[2019-12-10] MEDS: acetaZOLAMIDE SODIUM 500 MG VL IV SCH ×2 (10:23→21:59)
[2019-12-10] MEDS: POTASSIUM CHL 20MEQ/100ML 100 ML IV SCH ×4 (10:26→16:00)
--- NOTE | 2019-12-10 10:30 | NUR ---
DRESSING CHANGE CHEST TUBE DRESSING CHANGE TO 3 CHEST TUBES. PATIENT TOLERATED WELL, NO NOTED REDNESS OR CREPITUS NOTED TO SITES. MODERATE AMOUNT OF SEROUS DRAINAGE NOTED TO LEFT LATERAL CHEST TUBE. ALL CHEST TUBES CONNECTED TO WATER SEAL ATRIUM. RIGHT LATERAL CHEST TUBE DRAINING BLOODY DRAINAGE AND RIGHT ANTERIOR CHEST TUBE DRAINING SEROUS SANGUINOUS DRAINAGE. Addendum: 12/10/19 at 2100 by Cindy Suarez RN ALL CONNECTED TO SUCTION
--- NOTE | 2019-12-10 11:00 | NUR ---
PICC LINE DRESSING CHANGE PICC LINE DRESSING CHANGED USING STERILE TECHNIQUE. PATIENT TOLERATED WELL.
--- NOTE | 2019-12-10 11:15 | NUR ---
COMPLETE LINEN CHANGE COMPLETED AND PATIENT TOLERATED WELL. VITAL SIGNS REMAINED STABLE AT THIS TIME. WILL CONTINUE TO MONITOR.
--- NOTE | 2019-12-10 12:10 | NUR ---
DR DUNBAR AT BEDSIDE TO ASSESS PATIENT AND DISCUSS PLAN OF CARE. ALL ORDERS NOTED IN CHART.
--- NOTE | 2019-12-10 12:15 | NUR ---
DR BRO AT BEDSIDE TO DISCUSS PLAN OF CARE. ALL ORDERS NOTED IN CHART.
--- NOTE | 2019-12-10 12:35 | NUR ---
MD AT BEDSIDE. TITRATED FIO2 TO 70%. SPO2 92% AFTER TITRATION.
[2019-12-10] MEDS ORDERED: EPINEPHrine HCL 1 MG/10 ML SYRG IV ONE (14:45)
--- NOTE | 2019-12-10 16:52 | NUR ---
DR Tiffanie SANDOVAL AT BEDSIDE TO ASSESS PATIENT AND DISCUSS PLAN OF CARE. NO NEW ORDERS AT THIS TIME.
--- NOTE | 2019-12-10 18:43 | NUR ---
PERFORMED EKG DUE TO INCREASED HEART RATE IN THE 140'S. Addendum: 12/10/19 at 2110 by Cindy Suarez RN WRONG PATIENT
--- NOTE | 2019-12-10 19:40 | NUR ---
OPENING SHIFT RECEIVED REPORT FROM DAY SHIFT RN. ASSUMED CARE OF PATIENT. PATIENT INTUBATED AND SEDATED WITH NO SIGNS OR SYMPTOMS OF SOB, PAIN OR DISTRESS. HYPOACTIVE COUGH AND GAG. RIGHT UPPER ARM PICC TLC, LEFT INTERNAL JUGULAR TLC AND RIGHT FEMORAL ARTERIAL LINE - CLEAN/DRY/INTACT. LEFT LATERAL CHEST TUBE, RIGHT LATERAL CHEST TUBE, AND RIGHT ANTERIOR CHEST TUBE - PATENT AND DRAINING APPROPRIATELY, NO SIGNS OF CREPITUS OR LEAKS. GREEN HUNG TO GRAVITY. SEDATION: FENTANYL - 200MCG/HR VERSED - 12MG/HR VASOPRESSORS: LEVOPHED - 4MCG/MIN REPOSITIONED FOR COMFORT. BED IN LOWEST POSITION, SIDE RAILS UPX2. WILL CONTINUE TO MONITOR.
[2019-12-10] MEDS: NOREPINEPHRINE 8 MG/250ML KIT 250 ML IV SCH (20:45)
[2019-12-10] MEDS: PROPOFOL 100 ML IV SCH (20:50)
--- NOTE | 2019-12-10 22:15 | NUR ---
RT AT BEDSIDE. FI02 TITRATED DOWN TO 65%, 02 SAT - 95%. WILL CONTINUE TO MONITOR.
[2019-12-10] MEDS: ALBUTEROL SULF HFA 90MCG INH 200DOSE IN SCH (22:47)
[2019-12-10] MEDS: EPINEPHrine HCL 250 ML IV SCH (22:53)
[2019-12-10] MEDS: ATRACURIUM BESYLATE 1,000 MG in D5W 5% 150 ML IV SCH (22:53)
[2019-12-11] VITALS (103 sets, daily range): BP systolic 82–160; BP diastolic 48–87
[2019-12-11] MEDS: InsuLIN REG 1unit/0.01ml Soln (100units/ml) SC SCH ×4 (00:19→18:10)
[2019-12-11] MEDS: ACCU-CHEK COMFORT CURVE STRIP VI SCH ×4 (00:20→18:00)
[2019-12-11] MEDS: MIDAZOLAM HCL 50 MG in SODIUM CHL 0.9% 50 ML IV SCH ×3 (00:26→16:30)
[2019-12-11] MEDS: VASOPRESSIN 50 UNITS in D5W 5% 247.5 ML IV SCH (03:15)
--- NOTE | 2019-12-11 04:10 | NUR ---
MORNING CARE PERFORMED MORNING CARE WITH CHG WIPES AND WASH CLOTHS TO THE FACE. PARTIAL LINEN CHANGE AND GOWN CHANGED. REPOSITIONED FOR COMFORT. SKIN REASSESSED AT THIS TIME. GREEN AND ORAL CARE PERFORMED. WILL CONTINUE TO MONITOR.
--- NOTE | 2019-12-11 04:30 | NUR ---
RT AT BEDSIDE. TITRATED FI02 DOWN TO 60%, 02SAT - 92%. WILL CONTINUE TO MONITOR.
[2019-12-11 04:45] LABS: Basophils # (auto) 0.1 10 ^3/uL (0-0.2); Basophils % (auto) 0.4 % (0.0-2.0); Eosinophils # (auto) 0 10 ^3/uL (0-0.8); Hematocrit 26.2 % (36.0-46.0); Hemoglobin 8.9 g/dL (12.2-16.2); Lymphocytes # (auto) 0.3 10 ^3/uL (0.4-5.4); Mean Corpuscular Volume 91.2 fL (80.0-100.0); Monocytes # (auto) 0.5 10 ^3/uL (0-1.3); Monocytes % (auto) 2.8 % (0.0-12.0); Neutrophils # (auto) 16.5 10 ^3/uL (1.6-8.6); Neutrophils % (auto) 94.8 % (37.0-80.0); Platelet Count (auto) 119 10^3/uL (140-450); Red Blood Cells 2.87 10^6/uL (4.0-5.20); Red Cell Distribution Width 14.7 % (11.8-14.3); White Blood Cell 17.4 10^3/uL (4.4-10.8)
[2019-12-11 05:02] LABS: INR 1.23 (0.9-1.15); Partial Thromboplastin Time 22.2 sec (23.64-32.05)
[2019-12-11 05:07] LABS: Potassium 3.4 mmol/L (3.5-5.1)
[2019-12-11 05:15] LABS: Albumin 2.2 g/dL (3.4-5.0); BUN/Creatinine Ratio 65.7; Bilirubin, Direct 0.3 mg/dL (0-0.2); Bilirubin, Total 0.8 mg/dL (0.2-1.0); Calcium 8.5 mg/dL (8.5-10.1); Magnesium 2.5 mg/dL (1.6-2.6); Total Protein 4.6 g/dL (6.4-8.2)
--- NOTE | 2019-12-11 05:57 | NUR ---
PAGED DR. BRO, AWAITING CALL BACK.
[2019-12-11] MEDS: BUMETANIDE 2.5mg/10ml (0.25 mg/ml) INJ IV SCH ×2 (06:00→17:35)
[2019-12-11] MEDS: ALBUTEROL SULF HFA 90MCG INH 200DOSE IN SCH ×2 (06:00→14:00)
[2019-12-11] MEDS: PHENYLEPHRINE IV 250 ML IV SCH ×3 (06:34→23:14)
[2019-12-11] MEDS: IPRATROPIUM BROM 0.5 MG/2.5ML INH SOL NEB SCH ×3 (06:46→21:04)
[2019-12-11] MEDS: LEVALBUTEROL HCL 1.25 MG/3 ML NEB NEB SCH ×3 (06:46→21:04)
[2019-12-11] MEDS: MEROPENEM 1GM IVPB 100 ML IV SCH ×3 (07:05→22:00)
--- NOTE | 2019-12-11 07:24 | NUR ---
END OF SHIFT REPORT GIVEN TO DAY SHIFT RN. CARE ENDORSED.
[2019-12-11] MEDS: NOREPINEPHRINE 8 MG/250ML KIT 250 ML IV SCH (07:36)
[2019-12-11] MEDS: fentaNYL Drip 2500mCg/250mlNS 250 ML IV SCH (07:37)
[2019-12-11] MEDS: PROPOFOL 100 ML IV SCH (08:00)
[2019-12-11] MEDS: VANCOMYCIN 1GM/250ML 250 ML IV SCH ×2 (08:09→23:00)
[2019-12-11] MEDS: POTASSIUM CHL 20MEQ/100ML 100 ML IV SCH ×2 (08:15→11:30)
[2019-12-11] MEDS: SODIUM CHLOR 0.9% PF (SALINE LOCK) 10ML VIAL/SYR IV SCH ×2 (10:15→22:00)
[2019-12-11] MEDS: acetaZOLAMIDE SODIUM 500 MG VL IV SCH ×2 (10:15→22:00)
[2019-12-11] MEDS: methylPREDNISolone SOD SUCC 40 MG/ML VL IV SCH ×2 (10:15→22:00)
[2019-12-11] MEDS: ZINC SULFATE 220mg CAP or TAB PO SCH (10:15)
[2019-12-11] MEDS: CHOLECALCIFEROL (VITD3) 1,000UNIT=25mCg TAB PO SCH (10:16)
[2019-12-11] MEDS: ASCORBIC ACID 1,000 MG TAB PO SCH (10:16)
[2019-12-11] MEDS: DOXYCYCLINE 100 MG TAB/CAP PO SCH ×2 (10:16→22:00)
--- NOTE | 2019-12-11 15:55 | NUR ---
Resumed care at 0725, orders reviewed and ongoing assessments being done. Being treated for multiple problems and remains intubated and sedated. Is Covid-19 positive and following isolation protocol per policy. On pressure control ventilation and holding off sedation vacation for now. Upon repositioning and turning desaturates. Dropped down to 86% and requires 100% to recover. Fio2 at this time 70%. Dr. Casey, sleep medicine physician, rounded at 1200. Supplemental potassium given for K level of 3.4. Weaned Levophed gtt at 11 am, BP holding. Sunni to right femoral artery. No hematoma or bleeding noted at puncture site. Spoke with daughter Tobias earlier today via phone.
--- NOTE | 2019-12-11 16:18 | NUR ---
Nutrition Followup Note Wt: 77.6 kg Pt`s covid +. Pt intubated and sedated off propofol. Pt EN support of Glucerna 1.2 running @ 10 ml/hr was discontinued d/t pt high residuals. Will continue to monitor PO status, skin status, pertinent labs and weight trends. Will f/u in 2-3 days. Est Energy needs: [id number] kcals (20-23 kcal/kgBW), Est Protein needs: 50-62 gms/day (0.8-1.0 gm/kgBW). Will continue to monitor and reassess prn. Labs: Pot 3.4 L, GLU 124 H, ALB 2.2 L BM: Pt had 1 BM on 12/04 per RN doc Skin: BS 8, high risk, full wound care details in RN doc PES: 1) Inadequate oral intake aeb pt with ave of 38% PO intake over 4 meals r/t pt with a poor appetite 2) Altered nutrition related lab values aeb hyperglycemia, hypocalcemia, elev LFTs, elev Alk Phos, mod hypoalbuminemia r/t current medical condition Comments Will continue to closely monitor pertinent labs, PO status and skin status prn. Will followup in 2-3 days 1) If pt NPO >48 hours consider alternate nutrition 2) If TF is recommended consider Glucerna 1.2 at 50 ml/hr per MD approval if off propofol 3) Advance diet as medically feasible 4) Continue current plan of care
--- NOTE | 2019-12-11 18:32 | NUR ---
Respiratory note: RECEIVED PT ON VENT V21. VENT CHECK BEING DONE FROM DOOR DUE TO COVID-19 PRECAUTIONS. VENT CONNECTED TO RED OUTLET AND O2 SOURCE. ALARMS ARE SET AND AUDIBLE AMBU BAGS AND MASK AT BEDSIDE. CURRENT TEMP IS 98.2F. WILL CONTINUE TO MONITOR Q2H AND NEEDED.
--- NOTE | 2019-12-11 19:26 | NUR ---
Dr. Conner rounded at 1620, discussed condition and plan of care. He phoned daughter Kenzie and updated her on condition and plan of care.
--- NOTE | 2019-12-11 19:54 | NUR ---
ADMITTED ON11/22/19 WITH DYSPNEA. INTUBATED IN CHAR ON 12/01/2019. HAS BEEN WEANED OFF OF VASOPRESSORS OF TODAY. REMAINS ON VENTILATOR SEDATION: FENTANYL AND VERSED. MONITORING CVP. HAS GENERALIZED EDEMA. OGT IS CLAMPED. ARTERIAL LINE IN RIGHT FEMORAL ARTERY. FOLLOWING CUFF.HAS A LIJ TLC AND A EDWINA PICC LINE. UNABLE TO RUN GLUCERNA AT THIS TIME DUE TO HIGH OGT RESIDUALS.
[2019-12-11] MEDS: MIDAZOLAM DRIP 50 mg/50mL 50 ML IV SCH (21:00)
--- NOTE | 2019-12-11 21:04 | NUR ---
Respiratory note: AT BEDSIDE FOR ROUTINE VENT CHECK, SXD VIA ETT FOR SCANT WARD/WHITISH. MED NEB TX GIVEN VIA AEROGEN. NO ADVERSE REACTION NOTED. ELVA WATER CHANGED ON Kaminario HEATER. WATER PLACED, UNCLAMPED AND NOT LEAKING. ASSISTED JHON HAN IN A SLIGHT TURNING OF PT. PT TOLERATED TURN WELL. NO OTHER CHANGES DONE. WILL CONTINUE TO MONITOR.
--- NOTE | 2019-12-11 22:00 | NUR ---
TOLERATED TURNING. STAYED ON RIGHT SIDE FOR 2 HOURS. NOTHING SUCTIONED FROM THE ETT. ORAL CARE DONE. NO CREPITUS SURROUNDING ANY PART OF THE 3 CHEST TUBES. TINY AMOUNT OF OUTPUT THROUGH THE CHEST TUBES. NO AIR LEAK. ALL CHEST TUBES TO 20CM OF DRY ATRIUM PRESSURE. LUNGS CLEAR. ABDOMEN SOFT. RESIDUAL 100CC OF [place] LIQUID. ALL PULSES PALPABLE. 2+ GENERALIZED PITTING EDEMA. NO GAG OR COUGH. SBP IN THE 90S. SINUS TACHYCARDIA 94-115. NO ECTOPY.
--- NOTE | 2019-12-11 22:38 | NUR ---
Respiratory note: AT PTS ROOM DOOR FOR ROUTINE VENT CHECK, DUE TO COVID-19 ISO PRECAUTIONS. NO CHANGES MADE. RN EMELY CAME OUT OF ROOM COMMUNICATED SHE SXD VIA ETT FOR NOT A SIGNIFICANT RETURN. WILL CONTINUE TO MONITOR.
[2019-12-11] MEDS: ATRACURIUM BESYLATE 1,000 MG in D5W 5% 150 ML IV SCH (22:53)
[2019-12-11] MEDS: EPINEPHrine HCL 250 ML IV SCH (22:53)
[2019-12-12] VITALS (99 sets, daily range): BP systolic 86–206; BP diastolic 51–106
[2019-12-12] MEDS: MIDAZOLAM DRIP 50 mg/50mL 50 ML IV SCH ×3 (01:34→10:56)
--- NOTE | 2019-12-12 02:00 | NUR ---
NO CHANGE IN ASSESSMENT. NSR WITHOUT ECTOPY. NO AIR LEAKS. NO CREPITUS.
[2019-12-12] MEDS: VASOPRESSIN 50 UNITS in D5W 5% 247.5 ML IV SCH (03:15)
[2019-12-12 05:06] LABS: Basophils # (auto) 0.1 10 ^3/uL (0-0.2); Basophils % (auto) 0.5 % (0.0-2.0); Eosinophils # (auto) 0 10 ^3/uL (0-0.8); Hematocrit 25.5 % (36.0-46.0); Hemoglobin 8.6 g/dL (12.2-16.2); Lymphocytes # (auto) 0.3 10 ^3/uL (0.4-5.4); Lymphocytes % (auto) 2.1 % (10.0-50.0); Mean Corpuscular Hemoglobin 31.4 pg (28.0-32.0); Mean Corpuscular Hgb Conc. 33.8 g/dL (32.0-36.0); Mean Corpuscular Volume 92.9 fL (80.0-100.0); Monocytes # (auto) 0.5 10 ^3/uL (0-1.3); Monocytes % (auto) 3.4 % (0.0-12.0); Nucleated Red Blood Cells % 0.1 %; Platelet Count (auto) 119 10^3/uL (140-450); Red Blood Cells 2.74 10^6/uL (4.0-5.20); Red Cell Distribution Width 15.8 % (11.8-14.3); White Blood Cell 13.8 10^3/uL (4.4-10.8)
[2019-12-12 05:24] LABS: Potassium 3.7 mmol/L (3.5-5.1)
[2019-12-12 05:29] LABS: BUN/Creatinine Ratio 89.3; Calcium 8.5 mg/dL (8.5-10.1)
[2019-12-12] MEDS: BUMETANIDE 2.5mg/10ml (0.25 mg/ml) INJ IV SCH ×2 (05:57→18:07)
[2019-12-12] MEDS: MEROPENEM 1GM IVPB 100 ML IV SCH ×3 (05:57→21:54)
[2019-12-12] MEDS: InsuLIN REG 1unit/0.01ml Soln (100units/ml) SC SCH ×4 (06:00→20:27)
--- NOTE | 2019-12-12 06:00 | NUR ---
left lateral chest tube output: 20cc watery red, right lateral chest tube output 10cc, anterior chest tube output zero
[2019-12-12] MEDS: ACCU-CHEK COMFORT CURVE STRIP VI SCH ×4 (06:01→18:07)
[2019-12-12] MEDS: fentaNYL Drip 2500mCg/250mlNS 250 ML IV SCH (06:02)
[2019-12-12] MEDS: IPRATROPIUM BROM 0.5 MG/2.5ML INH SOL NEB SCH ×3 (06:32→22:22)
[2019-12-12] MEDS: LEVALBUTEROL HCL 1.25 MG/3 ML NEB NEB SCH ×3 (06:32→22:22)
--- NOTE | 2019-12-12 06:32 | NUR ---
Respiratory note: RECEIVED PT ON VENT V-21 PLUGGED INTO RED OUTLET. ALL VENT ALARMS ARE AUDIBLE, AND FUNCTIONING. AMBU BAG/MASK IS AT BEDSIDE CONNECTED TO AN O2 SOURCE. ETT IS 7.5 @ THE 20 LIP LINE SECURED WITH A ASH. MOVED ETT FROM LEFT TO CENTER NO ORAL/SKIN BREAKDOWN NOTED. BS ARE CLEAR/DIMINISHED BILATERALLY. SX FOR NO RETURN. GAG REFLEX NOTED. MEDNEB TX GIVEN INLINE VIA AEROGEN WITH NO ADVERSE EFFECTS NOTED. PT IS EDEMAS IN BOTH UPPER, AND LOWER EXTREMITIES. SKIN IS WARM/DRY TO THE TOUCH. CHEST TUBES IN PLACE ON BOTH SIDE. NO NEW VENT CHANGES ORDERED AT THIS TIME. WILL CONTINUE TO MONITOR PT. CHARTING COMPLETE FROM OUTSIDE OF PT ROOM DUE TO COVID-19 PROTOCOL.
--- NOTE | 2019-12-12 07:00 | NUR ---
Received report from EMELY FERREIRA. Patient remains on mechanical ventilation, PC with FIO2 70% Rate 24 PEEP 12. Patient SPO2 94% , lungs diminshed. No secretions from ETT tube, scant brown orally. Left chest tube patent, to wall suctioning, serous output.No cough or gag. Right chest tube patent, to wall suctioning, scant chris blood in tube. Anterior right chest tube patent, serous output. Pupils 3mm equal sluggish, then brisk once reactive. Sclera gelatin yellow color like a half toussaint around bottom portion of eyes. Landeros catheter to gravity. Patients left arm, bruising, red streaks on skin under blood pressure cuff. RN elevated arm, and moved BP cuff to left calf. Left central line patent, CVP 7 , right femoral arterial line patent, right PICC 3x line patent. Will continue to monitor.
[2019-12-12] MEDS: PHENYLEPHRINE IV 250 ML IV SCH ×2 (07:34→15:54)
[2019-12-12] MEDS: ASCORBIC ACID 1,000 MG TAB PO SCH (10:09)
[2019-12-12] MEDS: methylPREDNISolone SOD SUCC 40 MG/ML VL IV SCH ×2 (10:09→21:54)
[2019-12-12] MEDS: ZINC SULFATE 220mg CAP or TAB PO SCH (10:09)
[2019-12-12] MEDS: DOXYCYCLINE 100 MG TAB/CAP PO SCH ×2 (10:09→21:54)
[2019-12-12] MEDS: CHOLECALCIFEROL (VITD3) 1,000UNIT=25mCg TAB PO SCH (10:10)
[2019-12-12] MEDS: acetaZOLAMIDE SODIUM 500 MG VL IV SCH ×2 (10:25→21:54)
[2019-12-12] MEDS: SODIUM CHLOR 0.9% PF (SALINE LOCK) 10ML VIAL/SYR IV SCH ×2 (10:25→21:54)
--- NOTE | 2019-12-12 10:30 | NUR ---
Daughter Kenzie called, updated on status. All questions answered will call back this afternoon.
--- NOTE | 2019-12-12 15:00 | NUR ---
Patient SPO2 drops when repositioned - for chest xray. Patient had to be repostitioned and 100% oxygenated in order to recover.
[2019-12-12] MEDS ORDERED: SODIUM CHL 0.9% IV SCH (15:15)
[2019-12-12] MEDS ORDERED: POTASSIUM CHLORIDE IV SCH (15:15)
[2019-12-12] MEDS: VANCOMYCIN 1GM/250ML 250 ML IV SCH (15:49)
--- NOTE | 2019-12-12 15:58 | NUR ---
calling Pharmacy, missing mixed midazolam.
--- NOTE | 2019-12-12 16:08 | NUR ---
Premade Versed kits with 0.9% NS up to floor. RN signed for 4 kits, hungs1 and per [employer] game [employer] managerHema put the 3 bags in [facility] non fridge for patient. Will endorse to night RN.
[2019-12-12] MEDS: MIDAZOLAM HCL 50 MG in SODIUM CHL 0.9% 50 ML IV SCH ×3 (16:15→23:34)
--- NOTE | 2019-12-12 17:12 | NUR ---
Paged Dr Steele regarding elevated BP.
--- NOTE | 2019-12-12 18:00 | NUR ---
Patient waking up on her own. Patient is flexing feet, rotating at the ankles. Patient is lifting chin and moving her eyelids. Patient is now overbreathing that vent at times. Propofol is prepared in case patients needs to be further sedated.
[2019-12-12] MEDS: PROPOFOL 100 ML IV SCH (18:34)
--- NOTE | 2019-12-12 18:40 | NUR ---
[facility] [place] [facility] will endorse to night nurse 2Unit coverage. Addendum: 12/19/19 at 1117 by Paddy Rachel RN RN administered 2U did not endorse.
--- NOTE | 2019-12-12 18:45 | NUR ---
RT NOTE RECEIVED PT INTUBATED AND ON VENT V21 ON STATED SETTINGS WITH HEATED WIRE CIRCUIT. VENT IS PLUGGED TO RED OUTLET. ALARMS ARE ON AND AUDIBLE AT NURSING STATION. AMBU BAG AT BEDSIDE AND CONNECTED TO O2 SOURCE. 7.5 ETT IS SECURED WITH ANCHORFAST WITH BITE-BLOCK AT 20 CM TO THE ORAL CENTER. BS ARE CLEAR/DIM BILATERALLY. PT HAS A RIGHT FEMORAL ART LINE NOTED. 3 CHEST TUBES NOTED WELL. PT WAS SUCTIONED FOR SCANT RETURN FROM ETT AND MODERATE RETURN ORALLY. CONT ORDERED. CVP 7,etCO2 39, POX 93% Addendum: 12/12/19 at 1914 by Wendy Stevens RT Amended: Links added.
--- NOTE | 2019-12-12 19:42 | NUR ---
Talked with daughter Kenzie, updated her on patient status and that she moved lower extremities and head.
--- NOTE | 2019-12-12 19:42 | NUR ---
Report give to Jose FERREIRA.
--- NOTE | 2019-12-12 20:28 | NUR ---
RT NOTE ROUTINE VENT CHECK DONE. PT INTUBATED AND ON VENT V21 ON STATED SETTINGS WITH HEATED WIRE CIRCUIT. VENT IS PLUGGED TO RED OUTLET. ALARMS ARE ON AND AUDIBLE AT NURSING STATION. AMBU BAG AT BEDSIDE AND CONNECTED TO O2 SOURCE. 7.5 ETT IS SECURED WITH ANCHORFAST WITH BITE-BLOCK AT 20 CM TO THE ORAL CENTER. PT HAS A RIGHT FEMORAL ART LINE NOTED. 3 CHEST TUBES NOTED WELL. CONT ORDERED. CVP 9,etCO2 35, POX 95% Addendum: 12/12/19 at 2030 by Wendy Stevens RT Amended: Links added.
[2019-12-12] MEDS: NOREPINEPHRINE 8 MG/250ML KIT 250 ML IV SCH (20:45)
--- NOTE | 2019-12-12 22:24 | NUR ---
RT NOTE ROUTINE VENT CHECK DONE. PT INTUBATED AND ON VENT V21 ON STATED SETTINGS WITH HEATED WIRE CIRCUIT. VENT IS PLUGGED TO RED OUTLET. ALARMS ARE ON AND AUDIBLE AT NURSING STATION. AMBU BAG AT BEDSIDE AND CONNECTED TO O2 SOURCE. 7.5 ETT IS SECURED WITH ANCHORFAST WITH BITE-BLOCK AT 20 CM TO THE ORAL RIGHT. PT WAS SUCTIONED FOR NO RETURN. HHN GIVEN INLINE WITH 0.63 MG XOPENEX AND 0.5 MG ATROVENT VIA AEROGEN WITHOUT ADVERSE REACTION NOTED. BS ARE CTA. PT HAS A RIGHT FEMORAL ART LINE NOTED. 3 CHEST TUBES NOTED WELL. CONT ORDERED. CVP 9,etCO2 32, POX 92% Addendum: 12/12/19 at 2229 by Wendy Stevens RT Amended: Links added.
[2019-12-12] MEDS: EPINEPHrine HCL 250 ML IV SCH (22:53)
[2019-12-12] MEDS: ATRACURIUM BESYLATE 1,000 MG in D5W 5% 150 ML IV SCH (22:53)
[2019-12-13] VITALS (103 sets, daily range): BP systolic 67–177; BP diastolic 46–95
--- NOTE | 2019-12-13 00:12 | NUR ---
RT NOTE ROUTINE VENT CHECK DONE. PT INTUBATED AND ON VENT V21 ON STATED SETTINGS WITH HEATED WIRE CIRCUIT. VENT IS PLUGGED TO RED OUTLET. ALARMS ARE ON AND AUDIBLE AT NURSING STATION. AMBU BAG AT BEDSIDE AND CONNECTED TO O2 SOURCE. 7.5 ETT IS SECURED WITH ANCHORFAST WITH BITE-BLOCK AT 20 CM TO THE ORAL RIGHT. PT HAS A RIGHT FEMORAL ART LINE NOTED. 3 CHEST TUBES NOTED WELL. CONT ORDERED. PT TEMP 98.6, CVP 10,etCO2 33, POX 92% Addendum: 12/13/19 at 0053 by Wendy Stevens RT Amended: Links added.
[2019-12-13] MEDS: PHENYLEPHRINE IV 250 ML IV SCH ×3 (00:14→16:54)
--- NOTE | 2019-12-13 02:42 | NUR ---
RT NOTE ROUTINE VENT CHECK DONE. PT INTUBATED AND ON VENT V19 ON STATED SETTINGS. VENT IS PLUGGED TO RED OUTLET. ALARMS ARE ON AND AUDIBLE AT NURSING STATION. AMBU BAG AT BEDSIDE AND CONNECTED TO O2 SOURCE. 8.0 ETT IS SECURED WITH ANCHORFAST WITH BITE-BLOCK AT 24 CM TO THE ORAL LEFT.CONT ORDERED. HME AND INLINE SUCTION CHANGED WITHOUT INCIDENT. PT TEMP 99.5, POX 93% Addendum: 12/13/19 at 0250 by Wendy Stevens RT Amended: Links added.
[2019-12-13] MEDS: VASOPRESSIN 50 UNITS in D5W 5% 247.5 ML IV SCH (03:15)
--- NOTE | 2019-12-13 04:00 | NUR ---
RT NOTE ROUTINE VENT CHECK DONE. PT INTUBATED AND ON VENT V21 ON STATED SETTINGS WITH HEATED WIRE CIRCUIT. VENT IS PLUGGED TO RED OUTLET. ALARMS ARE ON AND AUDIBLE AT NURSING STATION. AMBU BAG AT BEDSIDE AND CONNECTED TO O2 SOURCE. 7.5 ETT IS SECURED WITH ANCHORFAST WITH BITE-BLOCK AT 20 CM TO THE ORAL LEFT. PT HAS A RIGHT FEMORAL ART LINE NOTED. 3 CHEST TUBES NOTED WELL. CONT ORDERED. CVP 4,etCO2 33, POX 93% Addendum: 12/13/19 at 0415 by Wendy Stevens RT Amended: Links added.
[2019-12-13] MEDS: VANCOMYCIN 1GM/250ML 250 ML IV SCH (05:11)
[2019-12-13 05:12] LABS: BUN/Creatinine Ratio 71.9; Calcium 8.3 mg/dL (8.5-10.1); Potassium 3.6 mmol/L (3.5-5.1)
[2019-12-13] MEDS: InsuLIN REG 1unit/0.01ml Soln (100units/ml) SC SCH ×4 (05:44→18:00)
[2019-12-13] MEDS: MEROPENEM 1GM IVPB 100 ML IV SCH ×3 (05:44→22:00)
[2019-12-13] MEDS: BUMETANIDE 2.5mg/10ml (0.25 mg/ml) INJ IV SCH ×2 (05:44→18:00)
[2019-12-13] MEDS: ACCU-CHEK COMFORT CURVE STRIP VI SCH ×4 (05:45→18:00)
[2019-12-13] MEDS: MIDAZOLAM HCL 50 MG in SODIUM CHL 0.9% 50 ML IV SCH ×8 (06:00→17:35)
[2019-12-13] MEDS: fentaNYL Drip 2500mCg/250mlNS 250 ML IV SCH ×2 (06:23→18:04)
[2019-12-13] MEDS: IPRATROPIUM BROM 0.5 MG/2.5ML INH SOL NEB SCH ×3 (06:46→22:39)
[2019-12-13] MEDS: LEVALBUTEROL HCL 1.25 MG/3 ML NEB NEB SCH ×3 (06:46→22:39)
--- NOTE | 2019-12-13 07:00 | NUR ---
rECEIVED REPORT FROM Jose FERREIRA . Patient on same vent setting, sedation with Versed & Fentanyl, without propofol. Patient off of pressors, with HR 105 BP 108/91, RR 24 SPO2 93%. Chest tubes right/left lateral patent, anterior right chest tube patent. All chest tubes to wall suction. Right femoral arterial line, patent and flushed. Right central line patent. Patient CVP 7. No inline ETT secretions, oral secretions scant brown. Landeros catheter to gravity, clear yellow urine.
--- NOTE | 2019-12-13 07:50 | NUR ---
RN called pharmacy to order Versed kits in [place] for the day. They will send up 4 kits.
--- NOTE | 2019-12-13 08:00 | NUR ---
Patient moving legs, shoulders and eyelids when stimulated, even on sedation. Oral care completed, patient able to tolerate lateral movement without prolonged desaturation.
[2019-12-13] MEDS: POTASSIUM CHL 20MEQ/100ML 100 ML IV SCH ×2 (09:00→09:39)
[2019-12-13] MEDS: SODIUM CHLOR 0.9% PF (SALINE LOCK) 10ML VIAL/SYR IV SCH ×2 (10:00→22:00)
[2019-12-13] MEDS: acetaZOLAMIDE SODIUM 500 MG VL IV SCH ×2 (10:00→22:00)
[2019-12-13] MEDS: NOREPINEPHRINE 8 MG/250ML KIT 250 ML IV SCH ×2 (10:58→18:09)
[2019-12-13] MEDS: ZINC SULFATE 220mg CAP or TAB PO SCH (11:00)
--- NOTE | 2019-12-13 11:00 | NUR ---
Patient has small yellow/amador secretions inline ETT suctioning,when in room patient will respond by moving legs and shoulders.
[2019-12-13] MEDS: methylPREDNISolone SOD SUCC 40 MG/ML VL IV SCH ×2 (11:02→22:00)
[2019-12-13] MEDS: DOXYCYCLINE 100 MG TAB/CAP PO SCH ×2 (11:03→22:00)
[2019-12-13] MEDS: ASCORBIC ACID 1,000 MG TAB PO SCH (11:04)
[2019-12-13] MEDS: CHOLECALCIFEROL (VITD3) 1,000UNIT=25mCg TAB PO SCH (11:04)
--- NOTE | 2019-12-13 13:00 | NUR ---
RN in room for personal hygiene, turning patient, oral care, partial linen change.Patient tolerated left hip elevation on pillow.
--- NOTE | 2019-12-13 14:36 | NUR ---
Nutrition Followup Note Wt: 64.9 kg Pt`s covid +. Pt intubated and mildly sedated with propofol running @ 1.815 ml/hr and with Fentanyl. Pt EN support of Glucerna 1.2 is discontinued d/t pt high residuals. Pt has been NPO since 11/30. Suggest TPN nutrition support be initiated. Will continue to monitor PO status, skin status, pertinent labs and weight trends. Will f/u in 2-3 days. Est Energy needs: 7696-9843 kcals (20-23 kcal/kgBW), Est Protein needs: 50-62 gms/day (0.8-1.0 gm/kgBW). Will continue to monitor and reassess prn. Labs: BUN 23 H, Ca 8.3 L, ALB 2.2 L BM: Pt had no BM today per RN doc Skin: BS 14, mod risk, full wound care details in RN doc PES: 1) Inadequate oral intake aeb pt with ave of 38% PO intake over 4 meals r/t pt with a poor appetite 2) Altered nutrition related lab values aeb hyperglycemia, hypocalcemia, elev LFTs, elev Alk Phos, mod hypoalbuminemia r/t current medical condition Comments Will continue to closely monitor pertinent labs, PO status and skin status prn. Will followup in 2-3 days 1) If pt NPO >48 hours consider alternate nutrition 2) If TF is recommended consider Glucerna 1.2 at 50 ml/hr per MD approval if off propofol 3) Advance diet as medically feasible 4) Continue current plan of care
--- NOTE | 2019-12-13 17:18 | NUR ---
Dr. Maharaj bedside. New orders for Bumex 2mg BID.
--- NOTE | 2019-12-13 17:40 | NUR ---
Pharmacy Spoke with pharmacy regarding documentation of Versed administration. RN handput adminstration of 4 bags today after Pharmacy brought up four bags and another RN put them in Pyxis non fridge.
--- NOTE | 2019-12-13 18:30 | NUR ---
LEFT chest tube serous 15ml output, right lateral chest tube 20 ml chris blood, right anterior 30 ml serous outputl. All chest tubes patient, to wall suctioning as order by physician.
--- NOTE | 2019-12-13 18:58 | NUR ---
[facility] 155 WILL ENDORSE TO P.M. NURSE FOR COVERAGE
--- NOTE | 2019-12-13 20:00 | NUR ---
ADMITTED ON11/22/19 WITH DYSPNEA. INTUBATED IN [facility] ON 12/01/2019. COVID POSITIVE. DIAGNOSIS: RESPIRATORY FAILURE. HAS A LIJ TLC. DEVELOPED A PNEUMOTHORAX. CURRENTLY HAS 3 CHEST TUBES: LEFT LATERAL CHEST TUBE, RIGHT LATERAL CHEST TUBE AND ONE ANTERIOR CHEST TUBE. ALL ARE AT 20CM OF DRY ATRIUM SUCTION. THE WALL SUCTION IS ON FULL PER ORDER OF DR DUNBAR. DR GLASER FOLLOWING FOR SIADH PROGRESS. ORALLY INTUBATED. ORAL NGT CLAMPED. GREEN IN PLACE DRAINING CLEAR YELLOW LIQUID TO DOWN DRAIN BAG. GENERALIZED PITTING EDEMA. SCDS ON. PUFFY LEFT HAND. DRIPS: FENTANYL AT 200 MCG, VERSED 15 MG AND LEVOPHED AT 2 MCG/MIN. NO FEVER. NSR WITHOUT ECTOPY. ON PC VENTILATION. PRESSURE 24, FIO2 60%, PEEP OF 12. RECEIVED KCL REPLACEMENT TODAY FOR A POTASSIUM OF 3.6. BUMEX DOSE INCREASED FROM 1 TO 2 BID.
--- NOTE | 2019-12-13 22:00 | NUR ---
REPOSITIONED TO RIGHT SIDE. VSS. LEVOPHED OFF. SYSTOLIC HAS REMAINED IN THE 130S. LUNGS CLEAR. NOTHING SUCTIONED FROM THE ETT OR ORALLY. NO RESIDUAL FROM THE NGT BEFORE GIVING THE NGT MEDICATION. URINE OUTPUT ADEQUATE. EDEMA PERSISTS. LIKES HER HEAD TO THE RIGHT. EAR IS RED BUT NOT BROKEN DOWN. NO CREPITUS. CT DRESSINGS SECURE. MINIMAL DRNG FROM ALL 3 CHEST TUBES.
[2019-12-14] VITALS (102 sets, daily range): BP systolic 65–187; BP diastolic 45–141
--- NOTE | 2019-12-14 | NUR ---
REPOSITIONED TO BACK. ORAL CARE...OLD DARK BLOOD RETURNED. ETT SUCTIONED FOR NO SECRETIONS. LUNGS CLEAR. ABDOMEN SOFT. IV SHOWS NO REDNESS OR SWELLING. RIGHT FEMORAL ARTERIAL LINE SHOW NO REDNESS OR SWELLING. LIJ TLC DRESSING IS CLEAN, DRY WITH A BIOPATCH. NGT RESIDUAL WAS 70CC OF BROWN LIQUID. ABDOMEN SOFT. GREEN DRAINING A GOOD AMOUNT OF URINE. ACCUCHECK NOT COVERED. SINUS TACHYCARDIA LOWER NOW THAT SHE IS OFF LEVOPHED. NO CREPITUS. NO AIR LEAK IN CHAMBER. ALL 3 CHEST TUBES TO 20CM OF DRY ATRIUM PRESSURE. MINIMAL OUTPUT.
--- NOTE | 2019-12-14 02:00 | NUR ---
REPOSITIONED, ORAL CARE DONE. ST 102. NO ECTOPY. GOOD URINE OUTPUT. SEDATED. NO CHANGE IN VENTILATOR SETTINGS. ART LINE DRESSING PIÑA. SITE SHOWS NO REDNESS OR SWELLING.
[2019-12-14] MEDS: MIDAZOLAM HCL 50 MG in SODIUM CHL 0.9% 50 ML IV SCH ×4 (03:53→20:00)
[2019-12-14] MEDS: VANCOMYCIN 1GM/250ML 250 ML IV SCH ×2 (04:14→15:40)
[2019-12-14] MEDS: BUMETANIDE 2.5mg/10ml (0.25 mg/ml) INJ IV SCH ×2 (06:26→17:39)
[2019-12-14] MEDS: MEROPENEM 1GM IVPB 100 ML IV SCH ×3 (06:26→22:00)
[2019-12-14] MEDS: ACCU-CHEK COMFORT CURVE STRIP VI SCH ×4 (06:26→18:03)
[2019-12-14] MEDS: InsuLIN REG 1unit/0.01ml Soln (100units/ml) SC SCH ×4 (06:27→18:03)
[2019-12-14 06:33] LABS: Hemoglobin 10.8 g/dL (12.2-16.2); Mean Corpuscular Hemoglobin 30.5 pg (28.0-32.0); Mean Corpuscular Hgb Conc. 33.7 g/dL (32.0-36.0); Mean Corpuscular Volume 90.5 fL (80.0-100.0); Platelet Count (auto) 264 10^3/uL (140-450); Red Blood Cells 3.53 10^6/uL (4.0-5.20); White Blood Cell 17.7 10^3/uL (4.4-10.8)
[2019-12-14] MEDS: IPRATROPIUM BROM 0.5 MG/2.5ML INH SOL NEB SCH ×3 (06:40→22:26)
[2019-12-14] MEDS: LEVALBUTEROL HCL 1.25 MG/3 ML NEB NEB SCH ×3 (06:40→22:26)
[2019-12-14 07:02] LABS: Basophils % (manual) 0 (0.0-2.0); Blast Cells 0; Eosinophils % (manual) 0 (0-7); Myelocytes % 0; Promyelocytes % 0; Reactive Lymphocytes 0
[2019-12-14] MEDS: PROPOFOL 100 ML IV SCH (07:40)
[2019-12-14] MEDS: PHENYLEPHRINE IV 250 ML IV SCH ×3 (07:41→16:57)
[2019-12-14] MEDS: ATRACURIUM BESYLATE 1,000 MG in D5W 5% 150 ML IV SCH (07:41)
[2019-12-14] MEDS: VASOPRESSIN 50 UNITS in D5W 5% 247.5 ML IV SCH (07:41)
[2019-12-14] MEDS: EPINEPHrine HCL 250 ML IV SCH ×2 (07:41→22:53)
[2019-12-14 07:46] LABS: Band Neutrophils % (manual) 4; Lymphocytes % (manual) 4 (10.0-50.0); Metamyelocytes % 2; Monocytes % (manual) 2 (0-12)
--- NOTE | 2019-12-14 08:00 | NUR ---
OPEN RECEIVED REPORT FROM NIGHT RN. ASSUME CARE OF ICU PATIENT, FULL CODE STATUS ON VENT. PATIENT TOO HEMODYNAMICALLY UNSTABLE TO TURN AT THIS TIME. OFF LOADING PRESSURE AREAS WITH PILLOWS. CONTINUE CARE.
[2019-12-14] MEDS ORDERED: hydrALAZINE HCL 20 MG/ML VL IV PRN (08:30)
[2019-12-14] MEDS: SODIUM CHLOR 0.9% PF (SALINE LOCK) 10ML VIAL/SYR IV SCH ×2 (09:08→22:00)
[2019-12-14] MEDS: DOXYCYCLINE 100 MG TAB/CAP PO SCH ×2 (09:09→22:00)
[2019-12-14] MEDS: methylPREDNISolone SOD SUCC 40 MG/ML VL IV SCH ×2 (09:09→22:00)
[2019-12-14] MEDS: ASCORBIC ACID 1,000 MG TAB PO SCH (09:09)
[2019-12-14] MEDS: CHOLECALCIFEROL (VITD3) 1,000UNIT=25mCg TAB PO SCH (09:09)
[2019-12-14] MEDS: ZINC SULFATE 220mg CAP or TAB PO SCH (09:09)
--- NOTE | 2019-12-14 10:15 | NUR ---
DIPRIVAN GTT STARTED AT THIS TIME PATIENT HAVING INCREASED WORK OF BREATHING, USING ACCESSORY MUSCLES. RR 28, HR UP TO 150'S SBP 150'S, STARTED AT 30 MCG/KG/MIN. WILL CONTINUE TO MONITOR. MD TO BE NOTIFIED .
--- NOTE | 2019-12-14 11:05 | NUR ---
FAMILY CALLED: UPDATED PATIENT'S DAUGHTER CALLED. UPDATED HER ON PT'S CURRENT STATUS, LABS AND POC FOR TODAY. CONTINUE CARE. FAMILY TO CALL BACK LATER ON TODAY.
[2019-12-14] MEDS: acetaZOLAMIDE SODIUM 500 MG VL IV SCH ×2 (13:04→22:00)
--- NOTE | 2019-12-14 14:00 | NUR ---
LEVOPHED GTT STARTED AT THIS TIME PER PROTOCOL . SBP IN THE MID 70'S VIA A-LINE. SEE IV FLOW SHEET FOR INFORMATION.
[2019-12-14] MEDS: NOREPINEPHRINE 8 MG/250ML KIT 250 ML IV SCH (14:24)
--- NOTE | 2019-12-14 19:52 | NUR ---
ADMITTED ON11/22/19 WITH DYSPNEA. INTUBATED IN [facility] ON 12/01/2019. COVID POSITIVE. DIAGNOSIS: RESPIRATORY FAILURE. HAS A LIJ TLC. DEVELOPED A PNEUMOTHORAX. CURRENTLY HAS 3 CHEST TUBES: LEFT LATERAL CHEST TUBE, RIGHT LATERAL CHEST TUBE AND ONE ANTERIOR CHEST TUBE. ALL ARE AT 20CM OF DRY ATRIUM SUCTION. THE WALL SUCTION IS ON FULL PER ORDER OF DR DUNBAR. DR GLASER FOLLOWING FOR SIADH PROGRESS. ORALLY INTUBATED. ORAL NGT CLAMPED. GREEN IN PLACE DRAINING CLEAR YELLOW LIQUID TO DOWN DRAIN BAG. GENERALIZED PITTING EDEMA. SCDS ON. PUFFY LEFT HAND. DRIPS: FENTANYL AT 200 MCG, VERSED 15 MG, levophed at 3 mcg. DIPRIVAN AND LEVOPHED ADDED TODAY. PICC LINE EDWINA. ARTERIAL LINE RIGHT FEMORAL. SCDS ON.
--- NOTE | 2019-12-14 20:10 | NUR ---
NOTHING SUCTIONED FROM THE ETT. NO DRNG FROM ANY OF THE CHEST TUBES. ALL CHEST TUBES TO 20CM OF DRY ATRIUM SUCTION. NO CREPITUS. ALL DRESSINGS SECURE. ARTERIAL LINE CLOSE TO CUFF BP.AL REZERO"D. ALL PULSES PALPABLE. GENERALIZED PITTING EDEMA. GREEN DRAINING CLEAR YELLOW LIQUID WITH SEDIMENT. HEEL OFF BED. SCDS ON. THE LIJ TLC , RIGHT UPPER ARM PICC LINE AND THE RIGHT FEMORAL ARTERIAL LINE DRESSINGS ARE DRY, CURRENT AND SHOW NO REDNESS.
--- NOTE | 2019-12-14 22:00 | NUR ---
NOTHING SUCTIONED FROM THE ETT. + GAG AND COUGH. PUPILS ARE LARGE AND REACTIVE. REPOSITIONED. ORAL CARE DONE. NSR WITHOUT ECTOPY.
[2019-12-15] VITALS (98 sets, daily range): BP systolic 81–176; BP diastolic 39–89
[2019-12-15] MEDS: NOREPINEPHRINE 8 MG/250ML KIT 250 ML IV SCH
--- NOTE | 2019-12-15 | NUR ---
ASSESSMENT COMPLETED. CIRILO. + GAG AND COUGH. LUNGS CLEAR. NO ETT OR ORAL SECRETIONS. ABDOMEN SOFT, ROUND AND LARGE. ALM AREA CLEAN AND DRY. NO SKIN ISSUES. SCDS ON. HEELS OFF BED.
[2019-12-15] MEDS: fentaNYL Drip 2500mCg/250mlNS 250 ML IV SCH (01:00)
--- NOTE | 2019-12-15 01:30 | NUR ---
CHG BATH. DID DESATURATE WITH TURNING. COMPLETE LINEN CHANGE. BACK LOOKS GOOD. CHEST TUBES SECURE. MINIMAL CHEST TUBE OUTPUT. ST WITHOUT ECTOPY. MULTIPLE LARGE ECCHYMOTIC AREAS SURROUNDING CHEST TUBES. LARGE ECCHYMOTIC AREA UNDER THE LEFT UPPER ARM. LAM AREA REDNESS. CLEANED. DRIED AND PLACED Z GUARD. GENERALIZED EDEMA PERSISTS. GREEN IS DRAINING YELLOW WITH SEDIMENT.HANDS ARE PUFFY. DID NOT FEEL ANY CREPITUS. NO AIR LEAK. ALL CHEST TUBES ARE ON 20CM DRY ATRIUM SUCTION.
[2019-12-15] MEDS: MIDAZOLAM HCL 50 MG in SODIUM CHL 0.9% 50 ML IV SCH ×4 (03:42→20:00)
[2019-12-15] MEDS: VANCOMYCIN 1GM/250ML 250 ML IV SCH ×2 (03:46→19:10)
[2019-12-15] MEDS: BUMETANIDE 2.5mg/10ml (0.25 mg/ml) INJ IV SCH ×2 (06:25→19:07)
[2019-12-15] MEDS: MEROPENEM 1GM IVPB 100 ML IV SCH ×3 (06:26→22:09)
[2019-12-15] MEDS: ACCU-CHEK COMFORT CURVE STRIP VI SCH ×4 (06:26→18:40)
[2019-12-15] MEDS: InsuLIN REG 1unit/0.01ml Soln (100units/ml) SC SCH ×4 (06:26→18:00)
[2019-12-15 06:38] LABS: BUN/Creatinine Ratio 72.7; Calcium 8.6 mg/dL (8.5-10.1); Potassium 3.1 mmol/L (3.5-5.1)
[2019-12-15] MEDS: LEVALBUTEROL HCL 1.25 MG/3 ML NEB NEB SCH ×3 (06:40→22:39)
[2019-12-15] MEDS: IPRATROPIUM BROM 0.5 MG/2.5ML INH SOL NEB SCH ×3 (06:40→22:40)
[2019-12-15] MEDS: PROPOFOL 100 ML IV SCH ×4 (07:59→23:00)
[2019-12-15] MEDS: PHENYLEPHRINE IV 250 ML IV SCH ×3 (08:00→18:54)
[2019-12-15] MEDS: ATRACURIUM BESYLATE 1,000 MG in D5W 5% 150 ML IV SCH (08:00)
[2019-12-15] MEDS: VASOPRESSIN 50 UNITS in D5W 5% 247.5 ML IV SCH (08:01)
--- NOTE | 2019-12-15 09:00 | NUR ---
SEDATION VACATION HELD - PATIENT ON PRESSURE CONTROL ON VENT Addendum: 12/15/19 at 1535 by Monika Riley RN Amended: Links added.
[2019-12-15] MEDS: DOXYCYCLINE 100 MG TAB/CAP PO SCH ×2 (09:49→22:09)
[2019-12-15] MEDS: ASCORBIC ACID 1,000 MG TAB PO SCH (09:49)
[2019-12-15] MEDS: SODIUM CHLOR 0.9% PF (SALINE LOCK) 10ML VIAL/SYR IV SCH ×2 (09:49→22:09)
[2019-12-15] MEDS: CHOLECALCIFEROL (VITD3) 1,000UNIT=25mCg TAB PO SCH (09:50)
[2019-12-15] MEDS: ZINC SULFATE 220mg CAP or TAB PO SCH (09:55)
--- NOTE | 2019-12-15 10:20 | NUR ---
Respiratory note: TITRATED FIO2 TO 55%, RN ISAAC INFORMED.
--- NOTE | 2019-12-15 10:59 | NUR ---
Nutrition Followup Note Wt: 64.0 kg Pt`s covid +. Pt intubated and sedated with propofol running @ 7.26 ml/hr and with propofol providing 191 kcals from fats. Pt EN support of Glucerna 1.2 is discontinued d/t pt high residuals. Will f/u in 2-3 days. Est Energy needs: 0085-0546 kcals (20-23 kcal/kgBW), Est Protein needs: 50-62 gms/day (0.8-1.0 gm/kgBW). Will continue to monitor and reassess prn. Labs: BUN 29 H, CO2 36 H, GLU 186 H BM: Pt had no BM today with gastric drainage of 100 ml per RN doc Skin: BS 15, mod risk, full wound care details in RN doc PES: 1) Inadequate oral intake aeb pt with ave of 38% PO intake over 4 meals r/t pt with a poor appetite 2) Altered nutrition related lab values aeb hyperglycemia, hypocalcemia, elev LFTs, elev Alk Phos, mod hypoalbuminemia r/t current medical condition Comments Will continue to closely monitor pertinent labs, PO status and skin status prn. Will followup in 2-3 days 1) If pt NPO >48 hours consider alternate nutrition. Consider PN support if pt not able to meghan EN 2) If TF is recommended consider Glucerna 1.2 at 50 ml/hr per MD approval if off propofol 3) Advance diet as medically feasible 4) Continue current plan of care
[2019-12-15] MEDS: POTASSIUM CHL 20MEQ/100ML 100 ML IV SCH ×3 (11:00→15:22)
--- NOTE | 2019-12-15 11:00 | NUR ---
UNABLE TO REPOSITION PATIENT DUE TO DESATURATION. NO SECRETIONS PER ETT. HYPO COUGH/GAG NOTED.
[2019-12-15] MEDS: methylPREDNISolone SOD SUCC 40 MG/ML VL IV SCH ×2 (11:13→22:09)
[2019-12-15] MEDS: acetaZOLAMIDE SODIUM 500 MG VL IV SCH ×2 (11:31→22:09)
--- NOTE | 2019-12-15 11:45 | NUR ---
SPOKE WITH PATIENT'S DAUGHTER - UPDATED HER ON PATIENT CONDITION - VERBALIZES UNDERSTANDING.
--- NOTE | 2019-12-15 15:30 | NUR ---
DR GLASER VISITS - NO NEW ORDERS RECEIVED.
[2019-12-15] MEDS ORDERED: MIDAZOLAM DRIP 50 mg/50mL 0 ML IV ONE (16:26)
--- NOTE | 2019-12-15 17:15 | NUR ---
SPOKE TO PATIENT'S DAUGHTER - UPDATED ON PATIENT CONDITION - VERBALIZED UNDERSTANDING.
--- NOTE | 2019-12-15 20:00 | NUR ---
ADMITTED ON11/22/19 WITH DYSPNEA. INTUBATED IN [facility] ON 12/01/2019. COVID POSITIVE. DIAGNOSIS: RESPIRATORY FAILURE. HAS A LIJ TLC. DEVELOPED A PNEUMOTHORAX. CURRENTLY HAS 3 CHEST TUBES: LEFT LATERAL CHEST TUBE, RIGHT LATERAL CHEST TUBE AND ONE ANTERIOR CHEST TUBE. ALL ARE AT 20CM OF DRY ATRIUM SUCTION. THE WALL SUCTION IS ON FULL PER ORDER OF DR DUNBAR. DR GLASER FOLLOWING FOR SIADH PROGRESS. ORALLY INTUBATED. ORAL NGT CLAMPED.OBTAINED 130CC COFFEE GROUND CLOUDY LIQUID. GREEN IN PLACE DRAINING CLEAR YELLOW LIQUID WITH CHUNKY CLOUDY SEDIMENT TO DOWN DRAIN BAG. GENERALIZED PITTING EDEMA. SCDS ON. PUFFY LEFT HAND. DRIPS: FENTANYL AT 200 MCG, VERSED 15 MG, DIPRIVAN AT 20 MCG ADDED YESTERDAY. SHE IS MUCH MORE CALM TODAY. NO RESPIRATORY ANXIETY OR TACHYPNEA. MULTIPLE LARGE ECCHYMOTIC AREAS AROUND CHEST TUBE INSERTION AREAS AND ON HER ARMS. NEW FINDING IS A ROUND, MUCH TIGHTER, FIRM ABDOMEN. NO BOWEL SOUNDS . THE GREEN IS DRAINING. RECTAL TEMP PROBE IN. NO ISSUES SURROUNDING TEMPERATURE. BOTH FEET ARE COLD. SOCKS ON. SCDS ON. ALL PULSES PALPABLE. TACHYCARDIA WORSENED WHEN I WAS FEELING HER ABDOMEN TIGHTNESS.
--- NOTE | 2019-12-15 21:48 | NUR ---
REPORTED THE NEW FIRM ABDOMEN TO THE [employer] TEACHER PHYSICIAN DR ANDERSON.
--- NOTE | 2019-12-15 21:53 | NUR ---
DR ANDERSON GAVE ME AN ORDER FOR PROTONIX 40 IV NOW AND DAILY, ABDOMINAL SERIES AND A CBC NOW.
[2019-12-15] MEDS ORDERED: PANTOPRAZOLE 40 MG/10 ML VIAL INJ IV ONE (22:00)
--- NOTE | 2019-12-15 22:50 | NUR ---
RADIOLOGY CALLED. UPDATED THE KUB TO STAT. INFORMED THEM THAT SHE DOES NOT TURN WELL.
--- NOTE | 2019-12-15 22:51 | NUR ---
CBC SENT. HR 132-140. SINUS T[address] ANDERSON NOTIFIED. ORDER RECEIVED FOR A CMP
[2019-12-15 23:04] LABS: Basophils # (auto) 0.1 10 ^3/uL (0-0.2); Basophils % (auto) 0.6 % (0.0-2.0); Eosinophils # (auto) 0 10 ^3/uL (0-0.8); Hematocrit 34.2 % (36.0-46.0); Hemoglobin 11.2 g/dL (12.2-16.2); Lymphocytes # (auto) 0.5 10 ^3/uL (0.4-5.4); Lymphocytes % (auto) 2.9 % (10.0-50.0); Mean Corpuscular Hemoglobin 30.7 pg (28.0-32.0); Mean Corpuscular Hgb Conc. 32.9 g/dL (32.0-36.0); Mean Corpuscular Volume 93.4 fL (80.0-100.0); Monocytes # (auto) 1.1 10 ^3/uL (0-1.3); Monocytes % (auto) 6.6 % (0.0-12.0); Neutrophils # (auto) 15.7 10 ^3/uL (1.6-8.6); Neutrophils % (auto) 89.9 % (37.0-80.0); Nucleated Red Blood Cells % 0.1 %; Platelet Count (auto) 219 10^3/uL (140-450); Red Blood Cells 3.66 10^6/uL (4.0-5.20); Red Cell Distribution Width 16.2 % (11.8-14.3); White Blood Cell 17.5 10^3/uL (4.4-10.8)
[2019-12-15 23:47] LABS: Albumin 2.3 g/dL (3.4-5.0); BUN/Creatinine Ratio 56.8; Calcium 7.6 mg/dL (8.5-10.1)
[2019-12-15 23:49] LABS: Bilirubin, Total 1.7 mg/dL (0.2-1.0); Total Protein 4.8 g/dL (6.4-8.2)
[2019-12-16] VITALS (101 sets, daily range): BP systolic 27–150; BP diastolic 28–88
[2019-12-16] MEDS: fentaNYL Drip 2500mCg/250mlNS 250 ML IV SCH
--- NOTE | 2019-12-16 | NUR ---
SBP DROPPED. LEVOPHED RESTARTED. DR GLASER HAS NOT CALLED BACK. HR BETTER AT 124.
--- NOTE | 2019-12-16 00:29 | NUR ---
RESULTS OF CBC AND CMP CALLED TO DR ANDERSON. POTASSIUM 3.0 ORDER RECEIVED FOR REPLACING THE POTASSIUM WITH 60 MEQ IV. FOR THE HEART RATE, HE INFORMED ME TO CALL DR GLASER . CALL PLACED TO DR GLASER.
[2019-12-16] MEDS: POTASSIUM CHL 20MEQ/100ML 100 ML IV SCH ×3 (00:30→04:30)
[2019-12-16] MEDS ORDERED: POTASSIUM CHL 20MEQ/100ML 100 ML IV ONE (00:33)
--- NOTE | 2019-12-16 01:15 | NUR ---
HR SLOWLY COMING DOWN WITH THE INCREASED FLUID FROM THE KCL REPLACEMENT. CURRENTLY 122
[2019-12-16] MEDS: NOREPINEPHRINE 8 MG/250ML KIT 250 ML IV SCH (04:00)
--- NOTE | 2019-12-16 04:00 | NUR ---
AM LABS POSTPONED DUE TO KCL INFUSION REPLACEMENT GOING.
[2019-12-16] MEDS: VANCOMYCIN 1GM/250ML 250 ML IV SCH ×2 (04:09→16:00)
[2019-12-16] MEDS: MIDAZOLAM HCL 50 MG in SODIUM CHL 0.9% 50 ML IV SCH ×7 (04:30→21:00)
[2019-12-16] MEDS: MEROPENEM 1GM IVPB 100 ML IV SCH ×3 (06:00→22:00)
[2019-12-16] MEDS: BUMETANIDE 2.5mg/10ml (0.25 mg/ml) INJ IV SCH ×2 (06:00→18:00)
[2019-12-16] MEDS: InsuLIN REG 1unit/0.01ml Soln (100units/ml) SC SCH ×4 (06:00→18:00)
[2019-12-16] MEDS: ACCU-CHEK COMFORT CURVE STRIP VI SCH ×4 (06:00→18:00)
--- NOTE | 2019-12-16 06:00 | NUR ---
CHEST TUBES: ANTERIOR DRAINED 10CC, LEFT LATERAL DRAINED ZERO, RIGHT LATERAL DRAINED 10.
[2019-12-16] MEDS: IPRATROPIUM BROM 0.5 MG/2.5ML INH SOL NEB SCH ×3 (07:13→22:15)
[2019-12-16] MEDS: LEVALBUTEROL HCL 1.25 MG/3 ML NEB NEB SCH ×3 (07:13→22:15)
[2019-12-16] MEDS: PROPOFOL 100 ML IV SCH ×4 (08:00→21:00)
--- NOTE | 2019-12-16 08:00 | NUR ---
OPENING Report received from Kaylin GIL RN. Care initiated and initial assessment complete.
[2019-12-16] MEDS ORDERED: MIDAZOLAM DRIP 50 mg/50mL 50 ML IV SCH (08:30)
[2019-12-16 09:26] LABS: BUN/Creatinine Ratio 35.3; Calcium 8.8 mg/dL (8.5-10.1); Potassium 4.5 mmol/L (3.5-5.1)
[2019-12-16] MEDS: EPINEPHrine HCL 250 ML IV SCH (09:57)
[2019-12-16] MEDS: VASOPRESSIN 50 UNITS in D5W 5% 247.5 ML IV SCH (09:57)
[2019-12-16] MEDS: PHENYLEPHRINE IV 250 ML IV SCH ×2 (09:57→09:59)
[2019-12-16] MEDS: ATRACURIUM BESYLATE 1,000 MG in D5W 5% 150 ML IV SCH (09:57)
[2019-12-16] MEDS: DOXYCYCLINE 100 MG TAB/CAP PO SCH ×2 (10:00→22:00)
[2019-12-16] MEDS: acetaZOLAMIDE SODIUM 500 MG VL IV SCH ×2 (10:00→22:00)
[2019-12-16] MEDS: SODIUM CHLOR 0.9% PF (SALINE LOCK) 10ML VIAL/SYR IV SCH ×2 (10:00→22:00)
[2019-12-16] MEDS: PANTOPRAZOLE 40 MG/10 ML VIAL INJ IV SCH (10:00)
[2019-12-16] MEDS: CHOLECALCIFEROL (VITD3) 1,000UNIT=25mCg TAB PO SCH (10:00)
[2019-12-16] MEDS: methylPREDNISolone SOD SUCC 40 MG/ML VL IV SCH ×2 (10:00→22:00)
[2019-12-16] MEDS: ASCORBIC ACID 1,000 MG TAB PO SCH (10:00)
[2019-12-16] MEDS: ZINC SULFATE 220mg CAP or TAB PO SCH (10:00)
--- NOTE | 2019-12-16 12:00 | NUR ---
WOUND CARE NOTE: PATIENT IS BEING MONITORED FOR SKIN INTEGRITY D/T INTUBATION STATUS. PATEINT CONTINUES TO BE INTUBATED, SEDATED. SHE IS COVID POSITIVE, IN AIRBORNE ISOLATION. CURRENT BETHANY SCORE IS 12. PATIENT CONTINUES TO REST ON ICU LOW AIRLOSS MATTRESS. SHE CONTINUES TO BE INTERMITTENTLY UNSTABLE FOR TURNING/REPOSITIONING. SKIN REMAINS INTACT, BLANCHABLE. SKIN/WOUND CARE PLAN UPDATED. RECOMMEND: CONTINUATION WITH ALL WOUND CARE ORDERS PREVIOUSLY PRESCRIBED BY MD. WOUND CARE TEAM WILL CONTINUE TO MONITOR.
--- NOTE | 2019-12-16 13:30 | NUR ---
ATTEMPTED TURN Attempted to turn patient to provide linen care, patients heart rate increased to the 140s immediately. Patient not tolerating turning.
--- NOTE | 2019-12-16 15:20 | NUR ---
FLUSHED CALDWELL No urine output noted. However, bed wet from urine. Used sterile technique to flush caldwell catheter. Sediment noted on flush. Caldwell draining at this time.
--- NOTE | 2019-12-16 16:00 | NUR ---
BEDSIDE Dr. Conner bedside. No new orders received.
--- NOTE | 2019-12-16 16:15 | NUR ---
FLUSHED CALDWELL Used sterile technique to flush caldwell. Sediment noted.
--- NOTE | 2019-12-16 16:30 | NUR ---
COMPLETE LINEN CHANGE Patient tolerated poorly. Hearty rate increased and BP lowered.
--- NOTE | 2019-12-16 20:00 | NUR ---
LARGE URINE OUTPUT DIURESIS. 1500 CC OF CLEAR YELLOW LIQUID IN DOWN DRAIN BAG. NGT RESIDUAL HAS DRAINED 80CC OF A BILE COLOR LIQUID. ABDOMEN IS SLIGHTLY ROUND AND SOFT. NO NEW SKIN CHANGES. MINIMAL CHEST TUBE OUTPUT FROM THE 3 CHEST TUBES. ALL CHEST TUBES AT 20CM OF DRY ATRIUM PRESSURE. WALL UNIT FOR SUCTION IS AT HIGH PER REQUEST OF DR DUNBAR. LARGE ECCHYMOSIS SURROUNDING CHEST TUBE SITES. NO AIR LEAKS. NO CREPITUS. BILATERAL ARM ECCHYMOSIS IN VARYING SIZES. GENERALIZED EDEMA. LEFT HAND /WRIST IS VERY PUFFY. SCD ON RIGHT LEG. BLOOD PRESSURE CUFF ON LEFT LEG. RIGHT FEMORAL ARTERIAL LINE AND CVP BOTH REZERO'D. ART LINE CURRENTLY IS CLOSE TO CUFF, BUT WE ARE FOLLOWING THE CUFF PRESSURE Q 15 MINUTES. UNABLE TO TURN PATIENT AT THIS TIME. UNSTABLE HEMODYNAMICS WHEN TURNING.
--- NOTE | 2019-12-16 20:01 | NUR ---
ADMITTED ON11/22/19 WITH DYSPNEA. INTUBATED IN [facility] ON 12/01/2019. COVID POSITIVE. DIAGNOSIS: RESPIRATORY FAILURE. HAS A LIJ TLC. DEVELOPED A PNEUMOTHORAX. CURRENTLY HAS 3 CHEST TUBES: LEFT LATERAL CHEST TUBE, RIGHT LATERAL CHEST TUBE AND ONE ANTERIOR CHEST TUBE. ALL ARE AT 20CM OF DRY ATRIUM SUCTION. THE WALL SUCTION IS ON FULL PER ORDER OF DR DUNBAR. DR GLASER FOLLOWING FOR SIADH PROGRESS. ORALLY INTUBATED. ORAL NGT CLAMPED. GREEN TO DOWN DRAIN BAG WITH SEDIMENT. LARGE ECCHYMOTIC AREAS SURROUNDING CHEST TUBE SITES. LARGE ECCHYMOTIC AREA UNDER ARM AND MULTIPLE SMALLER ONES ON ARMS. NO SACRAL SKIN BREADOWN. LAM AREA REDNESS WITH Z GUARD. SCD ON RIGHT LEG ONLY . BP CUFF ON LEFT UPPER THIGH. HAS A PICC EDWINA. HAS A LEFT IJ TLC. RIGHT FEMORAL ARTERIAL LINE. FOLLOWING CUFF PRESSURES. ART LINE OCCASIONALLY IS UNRELIABLE. GENERALIZED EDEMA. ON BUMEX BID. NO MAINTENANCE FLUIDS. SEDATION MEDS: FENTANYL, VERSED AND PROPOFOL. LEVOPHED FOR BP SUPPORT. SINUS TACHY 109 WITHOUT ECTOPY.
--- NOTE | 2019-12-16 22:00 | NUR ---
IN ROOM. NGT RESIDUAL CHECKED, ONLY 20CC OF BILE COLOR LIQUID. ABDOMEN SOFT. GREEN DRAINING A GOOD AMOUNT STILL. HR IS CLIMBING AGAIN. CURRENTLY AT 120. SINUS TACHYCARDIA , NO ECOTOPY. NO MOVEMENT OF EXTREMITIES. WEAK GAG AND COUGH. ORAL CARE DONE. SUCTIONED THE ETT FOR ABSOLUTELY NO SECRETIONS. ALL PULSES PALPABLE. BOTH FEET ARE COLD. FEET RESTING IN A DOWN POSITION. BOTH FEET ARE STILL FLEXIBLE. HEELS OFF OF BED. REPORT OF HIGH VANCOMYCIN LEVEL.
[2019-12-17] VITALS (103 sets, daily range): BP systolic 76–165; BP diastolic 42–195
--- NOTE | 2019-12-17 | NUR ---
REMAINS UNSTABLE IN TURNING. CIRILO. LUNGS CLEAR. NOTHING SUCTIONED FROM THE ETT. ORAL CARE. OLD DARK BROWN FROM THE BACK OF HER THROAT. ABDOMEN SOFT. GOOD URINE OUTPUT. SEDIMENT IN URINE. GENERALIZED EDEMA. SWITCHED OUT FENTANYL LINE. NO FEVERS. ARTERIAL LINE AND CVP BEING MONITORED. AL IS CLOSE TO THE CUFF, BUT WE ARE FOLLOWING THE CUFF.
[2019-12-17] MEDS: MIDAZOLAM HCL 50 MG in SODIUM CHL 0.9% 50 ML IV SCH ×6 (01:00→18:18)
--- NOTE | 2019-12-17 04:00 | NUR ---
4 IV TUBING LINES CHANGED. ORAL CARE. SUCTIONED ETT FOR NO SECRETIONS. ABDOMEN SOFT. NO FEVERS.
[2019-12-17] MEDS: VANCOMYCIN 1GM/250ML 250 ML IV SCH (04:29)
[2019-12-17] MEDS: PROPOFOL 100 ML IV SCH ×4 (04:31→18:19)
[2019-12-17 04:44] LABS: BUN/Creatinine Ratio 66.7; Calcium 8.5 mg/dL (8.5-10.1); Potassium 3.8 mmol/L (3.5-5.1)
[2019-12-17] MEDS: BUMETANIDE 2.5mg/10ml (0.25 mg/ml) INJ IV SCH ×2 (05:29→16:44)
[2019-12-17] MEDS: MEROPENEM 1GM IVPB 100 ML IV SCH ×3 (06:00→21:34)
[2019-12-17] MEDS: ACCU-CHEK COMFORT CURVE STRIP VI SCH ×4 (06:00→18:12)
[2019-12-17] MEDS: InsuLIN REG 1unit/0.01ml Soln (100units/ml) SC SCH ×4 (06:00→18:14)
[2019-12-17] MEDS: IPRATROPIUM BROM 0.5 MG/2.5ML INH SOL NEB SCH ×3 (07:07→22:00)
[2019-12-17] MEDS: LEVALBUTEROL HCL 1.25 MG/3 ML NEB NEB SCH ×3 (07:07→22:00)
--- NOTE | 2019-12-17 08:15 | NUR ---
OPENING Report received from Kaylin GIL RN. Care initiated.
--- NOTE | 2019-12-17 08:40 | NUR ---
SPOKE TO MD Spoke to Dr. Malagon and updated him on morning CXR and ABG. No new orders received. MD to round this afternoon.
[2019-12-17] MEDS: PHENYLEPHRINE IV 250 ML IV SCH ×4 (09:39→20:20)
[2019-12-17] MEDS: EPINEPHrine HCL 250 ML IV SCH ×2 (09:39→20:21)
[2019-12-17] MEDS: VASOPRESSIN 50 UNITS in SODIUM CHL 0.9% 247.5 ML IV SCH (09:40)
[2019-12-17] MEDS: SODIUM CHL 0.9% IV SCH (09:41)
[2019-12-17] MEDS: ATRACURIUM BESYLATE IV SCH (09:41)
[2019-12-17] MEDS: fentaNYL Drip 2500mCg/250mlNS 250 ML IV SCH ×3 (10:00→22:30)
[2019-12-17] MEDS: acetaZOLAMIDE SODIUM 500 MG VL IV SCH ×2 (10:00→21:33)
--- NOTE | 2019-12-17 10:26 | NUR ---
Nutrition Followup Note Wt: 64.0 kg Pt`s covid +. Pt intubated and sedated with propofol running @ 9.075 ml/hr and with propofol providing 240 kcals from lipids. Pt EN support of Glucerna 1.2 continue feeding as medically feasible and as residuals allow. Will f/u in 2-3 days. Est Energy needs: 1795-6628 kcals (20-23 kcal/kgBW), Est Protein needs: 50-62 gms/day (0.8-1.0 gm/kgBW). Will continue to monitor and reassess prn. Labs: BUN 30H, Creat 0.45L, Gluc 187H, Alb 2.3L BM: Pt had no BM today with gastric drainage of 120 ml per RN doc Skin: BS 14, mod risk, full wound care details in RN doc PES: 1) Inadequate oral intake aeb pt with ave of 38% PO intake over 4 meals r/t pt with a poor appetite 2) Altered nutrition related lab values aeb hyperglycemia, hypocalcemia, elev LFTs, elev Alk Phos, mod hypoalbuminemia r/t current medical condition Comments Will continue to closely monitor pertinent labs, PO status and skin status prn. Will followup in 2-3 days 1) Continue TF of Glucerna 1.2 at rate medically feasible with a goal rate at 50 ml/hr per MD approval if off propofol 2) Advance diet as medically feasible 3) Continue current plan of care
[2019-12-17] MEDS: SODIUM CHLOR 0.9% PF (SALINE LOCK) 10ML VIAL/SYR IV SCH ×2 (11:17→21:34)
[2019-12-17] MEDS: PANTOPRAZOLE 40 MG/10 ML VIAL INJ IV SCH (11:17)
[2019-12-17] MEDS: methylPREDNISolone SOD SUCC 40 MG/ML VL IV SCH ×2 (11:17→21:34)
[2019-12-17] MEDS: ASCORBIC ACID 1,000 MG TAB PO SCH (11:17)
[2019-12-17] MEDS: ZINC SULFATE 220mg CAP or TAB PO SCH (11:18)
[2019-12-17] MEDS: DOXYCYCLINE 100 MG TAB/CAP PO SCH ×2 (11:18→21:34)
[2019-12-17] MEDS: CHOLECALCIFEROL (VITD3) 1,000UNIT=25mCg TAB PO SCH (11:19)
--- NOTE | 2019-12-17 11:25 | NUR ---
STABILITY Patient remains unstable with minimal movement. No turning complete d/t unstable heart rate and blood pressure.
--- NOTE | 2019-12-17 11:50 | NUR ---
FAMILY UPDATED Updated patients daughter on patients status. All questions and concerns addressed at this time.
--- NOTE | 2019-12-17 15:45 | NUR ---
ROUNDING Dr. Adams roundyan. New orders received. Convalescent plasma to be given.
--- NOTE | 2019-12-17 15:50 | NUR ---
AYE García for convalescent plasma.
[2019-12-17] MEDS ORDERED: VANCOMYCIN 1GM/250ML 250 ML IV SCH (16:00)
--- NOTE | 2019-12-17 16:30 | NUR ---
FAMILY UPDATED Daughter called and was updated. All questions and concerns addressed.
[2019-12-17] MEDS: NOREPINEPHRINE 8 MG/250ML KIT 250 ML IV SCH (19:30)
--- NOTE | 2019-12-17 20:00 | NUR ---
Opening Shift Note: Patient is intubated/sedated. Previous admitted to [facility]; ICU transfer/intubated on 12/01/19. ET size 7.5/20 @ the lip. Settings: PC rate 24; FiO2 60%; PEEP 12; pressure 24. Neuro: pupils are 3 mm/sluggish; flaccid ext.; hypoactive cough/gag. Cardio: ST 100s-110s; SBP 80s-110s; weak pulses. Resp: x3 chest tubes (right/left lateral; right anterior) with min current output; no secretions from ET tube/oral. GI: OGT clamped at this time; previously not tolerating feedings. Landeros inserted on 12/01/19 for strict I/O. Skin: upper chest anterior bruising; right arm bruising. IVs: right femoral ART line inserted on 12/07/19; left IJ TLC inserted on 12/02/19 (CVP/ABX/TKO/Levo restarted at 2 mcg); RUE PICC triple lumen inserted on 12/12/19 running propofol @ 25, Versed @ 15, Fentanyl @ 200. Patient is COVID +, all precautions in place. Previously received a total x3 units of PRBCs. Will continue to round/reposition/perform oral care prn.
[2019-12-18] VITALS (103 sets, daily range): BP systolic 86–161; BP diastolic 51–91
[2019-12-18] MEDS: MIDAZOLAM HCL 50 MG in SODIUM CHL 0.9% 50 ML IV SCH ×4 (01:30→22:30)
[2019-12-18] MEDS: PROPOFOL 100 ML IV SCH ×2 (02:15→20:05)
[2019-12-18] MEDS: PHENYLEPHRINE IV 250 ML IV SCH ×3 (02:26→20:45)
[2019-12-18] MEDS: MEROPENEM 1GM IVPB 100 ML IV SCH ×3 (06:00→22:30)
[2019-12-18] MEDS: InsuLIN REG 1unit/0.01ml Soln (100units/ml) SC SCH ×5 (06:00→22:52)
[2019-12-18] MEDS: LEVALBUTEROL HCL 1.25 MG/3 ML NEB NEB SCH ×3 (06:00→22:00)
[2019-12-18] MEDS: ACCU-CHEK COMFORT CURVE STRIP VI SCH ×5 (06:00→22:52)
[2019-12-18] MEDS: BUMETANIDE 2.5mg/10ml (0.25 mg/ml) INJ IV SCH ×2 (06:00→18:24)
[2019-12-18] MEDS: IPRATROPIUM BROM 0.5 MG/2.5ML INH SOL NEB SCH ×3 (06:00→22:00)
[2019-12-18 07:05] LABS: Potassium 3.2 mmol/L (3.5-5.1)
[2019-12-18 07:09] LABS: BUN/Creatinine Ratio 96.3; Calcium 8.6 mg/dL (8.5-10.1)
[2019-12-18] MEDS: ATRACURIUM BESYLATE IV SCH (07:44)
[2019-12-18] MEDS: VASOPRESSIN 50 UNITS in SODIUM CHL 0.9% 247.5 ML IV SCH (07:44)
[2019-12-18] MEDS: SODIUM CHL 0.9% IV SCH (07:44)
[2019-12-18] MEDS: methylPREDNISolone SOD SUCC 40 MG/ML VL IV SCH ×2 (09:39→22:00)
[2019-12-18] MEDS: acetaZOLAMIDE SODIUM 500 MG VL IV SCH ×2 (09:39→22:00)
[2019-12-18] MEDS: PANTOPRAZOLE 40 MG/10 ML VIAL INJ IV SCH (09:39)
[2019-12-18] MEDS: ZINC SULFATE 220mg CAP or TAB PO SCH (09:39)
[2019-12-18] MEDS: SODIUM CHLOR 0.9% PF (SALINE LOCK) 10ML VIAL/SYR IV SCH ×2 (09:39→22:00)
[2019-12-18] MEDS: CHOLECALCIFEROL (VITD3) 1,000UNIT=25mCg TAB PO SCH (09:40)
[2019-12-18] MEDS: ASCORBIC ACID 1,000 MG TAB PO SCH (09:40)
[2019-12-18] MEDS: DOXYCYCLINE 100 MG TAB/CAP PO SCH (09:40)
--- NOTE | 2019-12-18 10:10 | NUR ---
FAMILY CALLED: UPDATED PATIENT'S DAUGHTER CALLED, UPDATED ON PT'S CURRENT STATUS AND POC FOR TODAY. FAMILY TO CALL BACK LATER ON TODAY. CONTINUE CARE.
[2019-12-18] MEDS ORDERED: POTASSIUM EFFERVESENT TAB 25 MEQ GT ONE (11:30)
--- NOTE | 2019-12-18 11:30 | NUR ---
CALLED AND TALKED WITH DR. SOLO: ORDERS MD UPDATED ON PT'S CURRENT STATUS, LABS AND POC FOR TODAY. ORDERS GIVEN TO RE-CHECK AND SEND NEW COVID -19 TEST. ALSO INFORMED MD THAT PT'S k+ LEVEL IS 3.2. REPLACEMENT K+ ALSO TO BE GIVEN, SEE EMAR FOR TIME GIVEN. CONTINUE CARE.
--- NOTE | 2019-12-18 16:36 | NUR ---
DR. DUNBAR AT BEDSIDE: ORDERS MD UPDATED ON PT'S CURRENT STATUS, LABS AND POC AT THIS TIME. ORDERS GIVEN AND TO BE CARRIED OUT. INFORMED THAT FIO2 WAS TITRATED DOWN TO 50% FIO2 BY R.T. CONTINUE CARE.
--- NOTE | 2019-12-18 19:45 | NUR ---
Opening Shift Note: Patient is intubated/sedated. Previous admitted to [facility]; ICU transfer/intubated on 12/01/19. ET size 7.5/20 @ the lip. Settings: PC rate 24; FiO2 50%; PEEP 12; pressure 24. Neuro: pupils are 3 mm/sluggish; flaccid ext.; hypoactive cough/gag. Cardio: ST 100s-120s; SBP 80s-110s; weak pulses. Resp: x3 chest tubes (right/left lateral; right anterior) with min current output; no secretions from ET tube. GI: OGT clamped at this time; previously not tolerating feedings. Landeros inserted on 12/01/19 for strict I/O. Skin: upper chest anterior bruising; right arm bruising. IVs: right femoral ART line inserted on 12/07/19; left IJ TLC inserted on 12/02/19 (CVP/ABX/TKO/Levo restarted at 2 mcg); RUE PICC triple lumen inserted on 12/12/19 running propofol @ 25, Versed @ 15, Fentanyl @ 200. Patient is COVID +, all precautions in place. Previously received a total x3 units of PRBCs. Will continue to round/reposition/perform oral care prn.
[2019-12-18] MEDS: fentaNYL Drip 2500mCg/250mlNS 250 ML IV SCH (19:55)
[2019-12-18] MEDS: NOREPINEPHRINE 8 MG/250ML KIT 250 ML IV SCH (20:45)
[2019-12-18] MEDS: EPINEPHrine HCL 250 ML IV SCH (20:46)
--- NOTE | 2019-12-18 21:00 | NUR ---
FiO2 increased from 50% to 60%; patient sustaining oxygen saturation in the high 80s.
[2019-12-18] MEDS: FAMOTIDINE (10MG/ML) 2ML VL IV SCH (22:00)
[2019-12-19] VITALS (95 sets, daily range): BP systolic 98–165; BP diastolic 54–104
[2019-12-19] MEDS: MIDAZOLAM HCL 50 MG in SODIUM CHL 0.9% 50 ML IV SCH ×4 (02:45→22:55)
[2019-12-19] MEDS: PHENYLEPHRINE IV 250 ML IV SCH ×3 (04:37→22:54)
[2019-12-19] MEDS: InsuLIN REG 1unit/0.01ml Soln (100units/ml) SC SCH ×3 (05:51→18:00)
[2019-12-19] MEDS: IPRATROPIUM BROM 0.5 MG/2.5ML INH SOL NEB SCH ×3 (06:00→22:26)
[2019-12-19] MEDS: BUMETANIDE 2.5mg/10ml (0.25 mg/ml) INJ IV SCH ×2 (06:00→18:00)
[2019-12-19] MEDS: MEROPENEM 1GM IVPB 100 ML IV SCH ×3 (06:00→22:41)
[2019-12-19] MEDS: ACCU-CHEK COMFORT CURVE STRIP VI SCH ×3 (06:00→18:00)
[2019-12-19] MEDS: LEVALBUTEROL HCL 1.25 MG/3 ML NEB NEB SCH ×3 (06:00→22:26)
[2019-12-19] MEDS: PROPOFOL 100 ML IV SCH ×2 (06:31→23:53)
[2019-12-19 06:39] LABS: Potassium 3.5 mmol/L (3.5-5.1)
[2019-12-19 06:56] LABS: BUN/Creatinine Ratio 74.4; CRP High Sensitivity 2.31 mg/dL (< 0.3); Calcium 8.8 mg/dL (8.5-10.1)
--- NOTE | 2019-12-19 07:30 | NUR ---
Received a.m. report from p.mArnav nurse. Patient remains on mechanical vent with setting PC 24 , rate 24 PEEP 12 , FIO2 60%. Patient in NSR, on levophed 1 mcg/kg/min for BP support. Sedation Versed 15 mg/hr, Fentanyl 200mcg, Propofol 20 mcg/kg/. Patient has 3 chest tubes, right/left lateral, right anterior. Landeros catheter to gravity. NO BM since intubation on 12/01/19. Right femoral groin arterial line, left 3x IJ, rigth 3x PICC line. Will continue to monitor.
--- NOTE | 2019-12-19 09:15 | NUR ---
RN performed a.m. care and administered medications. Chest tubes patent, retaped and redressed d/t saturation of dressing surrounding insertion. Oral care completed. Landeros catheter care completed. All IV lines flushed and patent. Arterial line and CVP line zeroed and flushed, both patent. Patient aware of RN being in room, moved feet and HR & BP tawnya when I spoke to her without touching her.
[2019-12-19] MEDS: fentaNYL Drip 2500mCg/250mlNS 250 ML IV SCH ×2 (09:23→21:02)
[2019-12-19] MEDS: ATRACURIUM BESYLATE IV SCH (09:45)
[2019-12-19] MEDS: SODIUM CHL 0.9% IV SCH (09:45)
[2019-12-19] MEDS: VASOPRESSIN 50 UNITS in SODIUM CHL 0.9% 247.5 ML IV SCH (09:45)
[2019-12-19] MEDS: acetaZOLAMIDE SODIUM 500 MG VL IV SCH ×2 (10:00→22:22)
[2019-12-19] MEDS: SODIUM CHLOR 0.9% PF (SALINE LOCK) 10ML VIAL/SYR IV SCH ×2 (10:00→22:17)
--- NOTE | 2019-12-19 10:00 | NUR ---
RN spoke with beata Espino to update her on her mothers status, all questions answered. She requested that I charge patients cell phone so that can call at 1600 to facetime with her. Per daughter JHON Espino has permission to get into patients purse to get final inspector movement assembly for phone.
--- NOTE | 2019-12-19 10:00 | NUR ---
RN changed FIO2 to 55% while in room, RT outside window. Patient O2 saturation stable post changes, but tidal volumes were below 300. Reposition ETT tube, untaped chest tubes, brought patients feet up positionally, and put new pillow behind head. After 30 minutes of trying different interventions, the patients feet/knees up and head with pillow increased TV to her baseline.
[2019-12-19] MEDS: FAMOTIDINE (10MG/ML) 2ML VL IV SCH ×2 (10:54→22:24)
[2019-12-19] MEDS: methylPREDNISolone SOD SUCC 40 MG/ML VL IV SCH ×2 (10:54→22:28)
[2019-12-19] MEDS: ZINC SULFATE 220mg CAP or TAB PO SCH (10:54)
[2019-12-19] MEDS: CHOLECALCIFEROL (VITD3) 1,000UNIT=25mCg TAB PO SCH (10:55)
[2019-12-19] MEDS: ASCORBIC ACID 1,000 MG TAB PO SCH (10:55)
[2019-12-19] MEDS: ENOXAPARIN SOD 40 MG/0.4 ML SYRINGE SC SCH (10:55)
--- NOTE | 2019-12-19 11:30 | NUR ---
Levophed on hold at this time, as patient BP is climbing.
--- NOTE | 2019-12-19 11:35 | NUR ---
D/C planning Regarding social service consult for [facility]. Faxed clinical information to [facility]. Pending acceptance.
--- NOTE | 2019-12-19 14:50 | NUR ---
RN bedside for oral care, ETT suctioning, washing hair, complete bedbath, CHG wipes, z guard in between legs, folds on abx and under the breast. New ECG electrodes. Right lateral, left lateral, and anterior right chest tube dressing changed and retaped in secure position - all patent with no air leak in appliance. Left PICC line ports cleaned with alcohol. and flushed, left CVC IJ lines flushed and ports scrubbed with alcohol. All new bedding, patient positioned flat while cleaning and tolerated it well. Patient repositioned with pillows bilateral under hips and HOB up to 45 degrees.
--- NOTE | 2019-12-19 14:55 | NUR ---
Dr. Nelson bedside, changed vent settings Rate to 22 and PI of 22, will pass on information to RT>
--- NOTE | 2019-12-19 15:15 | NUR ---
Nutrition Followup Note Wt: 67.0 kg Pt`s covid +. Pt intubated and sedated with propofol running @ 9.075 ml/hr and with propofol providing 240 kcals from lipids. Pt EN support of Glucerna 1.2 suspended since 12/07 d/t high residuals. Suggest TPN nutrition support be initiated. Will f/u in 2-3 days. Est Energy needs: 8231-5799 kcals (20-23 kcal/kgBW), Est Protein needs: 50-62 gms/day (0.8-1.0 gm/kgBW). Will continue to monitor and reassess prn. Labs: Gluc 137 H, Alb 2.3 L BM: Pt had no BM today per RN doc Skin: BS 11, high risk, full wound care details in RN doc PES: 1) Inadequate oral intake aeb pt with ave of 38% PO intake over 4 meals r/t pt with a poor appetite 2) Altered nutrition related lab values aeb hyperglycemia, hypocalcemia, elev LFTs, elev Alk Phos, mod hypoalbuminemia r/t current medical condition Comments Will continue to closely monitor pertinent labs, PO status and skin status prn. Will followup in 2-3 days 1) Continue TF of Glucerna 1.2 at rate medically feasible with a goal rate at 50 ml/hr per MD approval if off propofol 2) Advance diet as medically feasible 3) Continue current plan of care
--- NOTE | 2019-12-19 16:30 | NUR ---
RN bedside with patients [facility] [place] phone. Joanie called to kady with patient. Patient moved head and tried opening her eyes to his voice. Then Kenzie, patients daughter called to kady also. Patient again tried to open eyes and move her mouth at the sound and cries of her daughter. Family will call again tomorrow at 1600 since RN will be with the patient again.
[2019-12-19] MEDS: METOCLOPRAMIDE HCL 5MG/ml INJ 2ml VIAL IV SCH ×2 (18:00→23:59)
--- NOTE | 2019-12-19 18:36 | NUR ---
Shift summary. Patient vent settings changed rate to 22 and PC of 22, FIO2 55% and PEEP 12, SPO2 94%, patient riding the vent. Patient afebrile, did move lower extremities and tried to open eyelids when stimulated. Remains Versed 15 mg, Propofol 25 mcg, Fentanyl 200 mch. In NS-Tach 98-125, BP off of Levophed last morning running 120-140's systolic. Pulses present, pitting edema upper/lower +1. Landeros catheter output 2100 ml yellow with sediment. Chest tubes redressed and sites cleansed today sites patient. Total output x 3 chest tubes 25ml serosanguinous. New order for tube feeding at set rate 20ml with metoclopromide. Will endorse care to pm.nurse.
--- NOTE | 2019-12-19 20:30 | NUR ---
OPEN NOTES RECEIVED PATIENT SEDATED WITH IV VERSED, FENTANYL AND PROPOFOL (SEE IV SPREADSHEET) PUPILS BOTH SLUGGISHLY REACTIVE TO LIGHT, NO LIMB MOVEMENT NOTED. INTUBATED AND VENTILATED ON PC MODE, FIO2 60%, MINIMAL SECRETIONS ORALLY. ORAL CARE DONE. THREE CHEST TUBES NOTED CONNECTED ALL TO ATRIUM DRAINAGE BOTTLE ,MINIMAL OUTPUT NOTED SINUS TACHYCARDIA HR 130-140/MIN, BP 100-130 MMHG WITH IV LEVOPHED AT 2MCG/MIN - WILL TITRATE OGT CHECKED , ASPIRATED 5MLS - WILL RE-START TUBE FEEDING TONIGHT. PATIENT WAS GIVEN REGLAN EARLIER GREEN CATHETER YELLOWISH URINE POURING OUT AFTER IV BUMEX GIVEN SKIN ASSESSED, UNABLE TO ASSESS BACK PART PATIENT DOES NOT TOLERATE BIG TURNS. FULL ASSESSMENT DONE - REFER INTERVENTIONS.
[2019-12-19] MEDS: NOREPINEPHRINE 8 MG/250ML KIT 250 ML IV SCH (20:45)
--- NOTE | 2019-12-19 21:00 | NUR ---
TUBE FEEDING STARTED RESIDUAL CHECKED 5MLS STARTED AT 10ML/HR
--- NOTE | 2019-12-19 21:12 | NUR ---
DAUGHTER CALLED UPDATED HER AFTER CORRECT PASSWORD OBTAINED. ALL QUESTIONS ANSWERED. VERBALIZED UNDERSTANDING
--- NOTE | 2019-12-19 21:18 | NUR ---
SEDATION VACATION NOT DONE HR HIGH, EASILY STIMULATED Addendum: 12/19/19 at 2119 by Vandana Salcido RN Amended: Links added.
[2019-12-19] MEDS: POTASSIUM CHL 20MEQ/100ML 100 ML IV SCH (22:46)
[2019-12-19] MEDS: EPINEPHrine HCL 250 ML IV SCH (22:53)
[2019-12-20] VITALS (62 sets, daily range): BP systolic 90–226; BP diastolic 36–85
--- NOTE | 2019-12-20 00:10 | NUR ---
ARTERIAL LINE AND CVP LINE ARTERIAL LINE AND CVP LINE LEVELED AND ZEROED GOOD WAVE FORM NOTED
--- NOTE | 2019-12-20 00:10 | NUR ---
OGT RESIDUAL OGT RESIDUAL CHECKED = 20MLS TUBE FEEDING NOT TOLERATED - HELD FOR NOW WILL RECHECK AFTER 2HOURS IV REGLAN GIVEN
[2019-12-20] MEDS: ACCU-CHEK COMFORT CURVE STRIP VI SCH ×4 (00:16→18:00)
[2019-12-20] MEDS: POTASSIUM CHL 20MEQ/100ML 100 ML IV SCH ×3 (00:54→18:10)
--- NOTE | 2019-12-20 01:00 | NUR ---
LEVOPHED WEANED OFF
--- NOTE | 2019-12-20 02:50 | NUR ---
BP LOW PATIENT'S ARTERIAL LINE BP 88/50 MMHG FOR MOST OF THE TIME NIBP 90-100MMHG HR 120-130/MIN SINUS TACHYCARDIA INSTEAD OF RE-STARTING IV LEVOPHED - STARTED IV NEOSYNEPHRINE DUE TO HR HIGH
[2019-12-20] MEDS: PHENYLEPHRINE IV 250 ML IV SCH ×2 (02:54→14:55)
--- NOTE | 2019-12-20 04:30 | NUR ---
RE-ASSESS PATIENT'S HR SLIGHTLY BETTER HR 110-115/MIN BP 100-110 MMHG SYSTOLIC KEPT IV ANNELIESE AT 40MCG/MIN
[2019-12-20 04:41] LABS: Basophils # (auto) 0 10 ^3/uL (0-0.2); Eosinophils # (auto) 0 10 ^3/uL (0-0.8); Hematocrit 28.7 % (36.0-46.0); Hemoglobin 9.6 g/dL (12.2-16.2); Lymphocytes # (auto) 0.5 10 ^3/uL (0.4-5.4); Lymphocytes % (auto) 2.8 % (10.0-50.0); Mean Corpuscular Hemoglobin 31.3 pg (28.0-32.0); Mean Corpuscular Hgb Conc. 33.3 g/dL (32.0-36.0); Mean Corpuscular Volume 94.1 fL (80.0-100.0); Monocytes # (auto) 0.5 10 ^3/uL (0-1.3); Monocytes % (auto) 2.9 % (0.0-12.0); Neutrophils # (auto) 16.5 10 ^3/uL (1.6-8.6); Neutrophils % (auto) 94.3 % (37.0-80.0); Platelet Count (auto) 194 10^3/uL (140-450); Red Blood Cells 3.05 10^6/uL (4.0-5.20); Red Cell Distribution Width 16.3 % (11.8-14.3); White Blood Cell 17.6 10^3/uL (4.4-10.8)
[2019-12-20 04:57] LABS: Albumin 2.1 g/dL (3.4-5.0); Calcium 8.1 mg/dL (8.5-10.1); Potassium 3.5 mmol/L (3.5-5.1)
[2019-12-20 05:02] LABS: BUN/Creatinine Ratio 57.5; Bilirubin, Total 0.9 mg/dL (0.2-1.0); Total Protein 4.7 g/dL (6.4-8.2)
[2019-12-20] MEDS: METOCLOPRAMIDE HCL 5MG/ml INJ 2ml VIAL IV SCH ×3 (05:38→18:11)
[2019-12-20] MEDS: BUMETANIDE 2.5mg/10ml (0.25 mg/ml) INJ IV SCH ×2 (05:38→18:11)
[2019-12-20] MEDS: MEROPENEM 1GM IVPB 100 ML IV SCH ×3 (05:41→22:30)
[2019-12-20] MEDS: InsuLIN REG 1unit/0.01ml Soln (100units/ml) SC SCH ×4 (05:52→18:00)
[2019-12-20] MEDS: IPRATROPIUM BROM 0.5 MG/2.5ML INH SOL NEB SCH ×3 (06:00→22:21)
[2019-12-20] MEDS: LEVALBUTEROL HCL 1.25 MG/3 ML NEB NEB SCH ×3 (06:00→22:21)
--- NOTE | 2019-12-20 06:00 | NUR ---
HYGIENE CLEANED WITH CHG WIPES
--- NOTE | 2019-12-20 06:00 | NUR ---
CHEST TUBE LEFT LATERAL - 70ML RIGHT ANTERIOR - 10ML RIGHT LATERAL - 10ML
[2019-12-20] MEDS: MIDAZOLAM HCL 50 MG in SODIUM CHL 0.9% 50 ML IV SCH ×3 (06:16→21:35)
[2019-12-20] MEDS: PROPOFOL 100 ML IV SCH (06:45)
--- NOTE | 2019-12-20 07:00 | NUR ---
Received report from Stephanie FERREIRA Patient remains intubated FIO2 increased to 60% over night d/t SPO2 decrease. PC 22 PEEP 12. Patient is saturating 93% at beginning of shift. Patient changed from Levophed to Phenelephrine to assist with sustained increase in HR at shift change yesterday, it is now turned off. Right lateral, left lateral, right anterior chest tubes patent. P.M. nurse reported air leak in left lateral chest tube beginning of shift, will monitor. Landeros catheter patent to gravity, yellow/green urine. Patient on tube feeding Glucerna at 10ml/hr. Will continue to monitor.
--- NOTE | 2019-12-20 08:05 | NUR ---
Radiology called to let RN know that PICC line needs to be retracted 3-4 cm. RN passed on information to scrap charger and PICC RN.
[2019-12-20] MEDS: VASOPRESSIN 50 UNITS in SODIUM CHL 0.9% 247.5 ML IV SCH (09:45)
[2019-12-20] MEDS: SODIUM CHL 0.9% IV SCH (09:45)
[2019-12-20] MEDS: ATRACURIUM BESYLATE IV SCH (09:45)
[2019-12-20] MEDS: acetaZOLAMIDE SODIUM 500 MG VL IV SCH ×2 (10:00→21:34)
[2019-12-20] MEDS: SODIUM CHLOR 0.9% PF (SALINE LOCK) 10ML VIAL/SYR IV SCH ×2 (10:00→21:34)
--- NOTE | 2019-12-20 11:45 | NUR ---
Daughter called for update, all question answered on status. will call in room on patient cell at 1600 if RN is available will [facility].
--- NOTE | 2019-12-20 11:51 | NUR ---
D/C Planning Placed a follow up called from Marisela armenta Malone at 10:37 advising me patient has been accepted to [facility], but has to be negative COVID if going to facility with a ETT Tube. If patient does not go with a ETT Tube to [facility] then patient needs to be Trach or extubated, then he can go to facility being positive COVID. Informed JHON Thomason.
--- NOTE | 2019-12-20 12:15 | NUR ---
Pharmacy sent up 5 versed kits. With hemodialysis charge nurseShadia loaded into LOC&ALL no fridge.
--- NOTE | 2019-12-20 12:32 | NUR ---
PICC line RN bedside to retract catheter approximately 3-4 cm.
[2019-12-20] MEDS: methylPREDNISolone SOD SUCC 40 MG/ML VL IV SCH ×2 (12:36→21:34)
[2019-12-20] MEDS: FAMOTIDINE (10MG/ML) 2ML VL IV SCH ×2 (12:36→21:34)
--- NOTE | 2019-12-20 12:51 | NUR ---
PICC LINE RETRACTED 4 CM. BASED OFF RECENT CHEST X RAY SHOWING PICC LINE PLACEMENT. ALL THREE LUMENS FLUSH EASILY AND DRAW BLOOD. OKAY TO USE PICC LINE. PRIMARY RN NOTIFIED.
[2019-12-20] MEDS: ASCORBIC ACID 1,000 MG TAB PO SCH (13:09)
[2019-12-20] MEDS: ZINC SULFATE 220mg CAP or TAB PO SCH (13:09)
[2019-12-20] MEDS: ENOXAPARIN SOD 40 MG/0.4 ML SYRINGE SC SCH (13:10)
[2019-12-20] MEDS: CHOLECALCIFEROL (VITD3) 1,000UNIT=25mCg TAB PO SCH (13:10)
--- NOTE | 2019-12-20 14:22 | NUR ---
RN called Hospitalist to request downgrade since patient was extubated at 1040. Patient is stable respiratory. Left message on office voice mail. Addendum: 12/20/19 at 1423 by Paddy Rachel RN WRONG PATIENT
--- NOTE | 2019-12-20 19:01 | NUR ---
Shift Summary Patient remains on [facility] vent: FIO2 50% PC rate of [address] Anaya SPO2 88% or higher. Patient is currently 89%. In Ns-Tach 105-125, turned Phenelephrine back on @ 1800 at rate of 20 mcg. Sedation Versed 15 mg/18mls hour, Fentanyl 200 mcg. Propofol off most of day. Temp 97.5 -99.9 F rectal. Tube feeding 15ml/hr with 5 ml residual, reglan Q 6hrs. Hypoactive bowel sounds, no BM. Landeros catheter to gravity, yellow/green with sediment. Flushed today for patency. Chest tubes patent right lateral 0 ml output, left lateral 10 m l output, right anterior 10 ml output - all serous. Left lateral small air leak, Dr. Anaya aware no new orders. Dressing recompleted, packed wound petroleum gauze and foam retaped left lateral with small air leak. client account assistant notified. Right femoral Sunni patent. CVP 5-7 throughout day. Spoke with daughter two times today, facetime in room with and patient at 1600 today. Endorse care to pm. nurse.
--- NOTE | 2019-12-20 19:45 | NUR ---
Opening Shift Note: Patient is intubated/sedated. Previous admitted to [facility]; ICU transfer/intubated on 12/01/19. ET size 7.5/20 @ the lip. Settings: PC rate 22; FiO2 50%; PEEP 12; pressure 24. Neuro: pupils are 3 mm/sluggish; flaccid ext.; hypoactive cough/gag. Cardio: ST 120s-130s; SBP 110s-150s; weak pulses. Resp: x3 chest tubes (right/left lateral; right anterior) with min current output; no secretions from ET tube. GI: OGT running Glucerna @ 15 ml/hr (goal 20 per communication order) held at this time; not tolerating feedings, 60 ml residual. Landeros inserted on 12/01/19 for strict I/O. Skin: upper chest anterior bruising; right/left arm bruising. IVs: right femoral ART line inserted on 12/07/19; left IJ TLC inserted on 12/02/19 (CVP/ABX/TKO/Aden @ 20); RUE PICC triple lumen inserted on 12/12/19 running, Versed @ 15, Fentanyl @ 200. Patient is COVID +, all precautions in place. Previously received a total x3 units of PRBCs. Will continue to round/reposition/perform oral care prn.
[2019-12-20] MEDS: NOREPINEPHRINE 8 MG/250ML KIT 250 ML IV SCH (20:45)
[2019-12-20] MEDS: EPINEPHrine HCL 250 ML IV SCH (21:34)
[2019-12-21] VITALS (102 sets, daily range): BP systolic 66–174; BP diastolic 27–92
--- NOTE | 2019-12-21 | NUR ---
OGT residual check: Patient still has 50 cc of residual from OGT. Will continue to hold tube feedings at this time.
[2019-12-21] MEDS: InsuLIN REG 1unit/0.01ml Soln (100units/ml) SC SCH ×4 (00:29→18:00)
[2019-12-21] MEDS: ACCU-CHEK COMFORT CURVE STRIP VI SCH ×4 (00:29→18:28)
--- NOTE | 2019-12-21 00:45 | NUR ---
Tachycardia: Page sent to Dr. Estrella (regulatory submissions specialist for [facility]) in regards to patient HR sustaining in the 130s-150s Sinus Tachycardia. New order received to reconsult cardiology and monitor HR at this time. If patient starts to sustain higher or has rhythm changes, will repage for possible orders.
[2019-12-21] MEDS: MIDAZOLAM HCL 50 MG in SODIUM CHL 0.9% 50 ML IV SCH ×5 (01:17→22:30)
--- NOTE | 2019-12-21 03:30 | NUR ---
Patient bathe/linen change Patient given complete CHG bath. Skin integrity assessed for any changes. Linens and changed. Patient repositioned for comfort.
--- NOTE | 2019-12-21 04:00 | NUR ---
Residual check: Patient still had 40 ml of feeding residual after feedings have been off since 1999. Will continue to hold feeding at this time. Patient not tolerating.
[2019-12-21 04:26] LABS: Basophils # (auto) 0 10 ^3/uL (0-0.2); Basophils % (auto) 0.1 % (0.0-2.0); Eosinophils # (auto) 0 10 ^3/uL (0-0.8); Hematocrit 28.3 % (36.0-46.0); Hemoglobin 9.4 g/dL (12.2-16.2); Lymphocytes # (auto) 0.4 10 ^3/uL (0.4-5.4); Lymphocytes % (auto) 3.1 % (10.0-50.0); Mean Corpuscular Hemoglobin 31.7 pg (28.0-32.0); Mean Corpuscular Hgb Conc. 33.3 g/dL (32.0-36.0); Mean Corpuscular Volume 95.1 fL (80.0-100.0); Monocytes # (auto) 0.4 10 ^3/uL (0-1.3); Monocytes % (auto) 2.9 % (0.0-12.0); Neutrophils % (auto) 93.9 % (37.0-80.0); Platelet Count (auto) 180 10^3/uL (140-450); Red Blood Cells 2.98 10^6/uL (4.0-5.20); Red Cell Distribution Width 16.2 % (11.8-14.3); White Blood Cell 12.7 10^3/uL (4.4-10.8)
[2019-12-21 04:43] LABS: BUN/Creatinine Ratio 79.3; Calcium 8.8 mg/dL (8.5-10.1); Potassium 4.1 mmol/L (3.5-5.1)
[2019-12-21] MEDS: IPRATROPIUM BROM 0.5 MG/2.5ML INH SOL NEB SCH ×3 (06:00→22:06)
[2019-12-21] MEDS: LEVALBUTEROL HCL 1.25 MG/3 ML NEB NEB SCH ×3 (06:00→22:06)
[2019-12-21] MEDS: fentaNYL Drip 2500mCg/250mlNS 250 ML IV SCH ×2 (06:17→18:29)
[2019-12-21] MEDS: BUMETANIDE 2.5mg/10ml (0.25 mg/ml) INJ IV SCH (06:22)
[2019-12-21] MEDS: MEROPENEM 1GM IVPB 100 ML IV SCH ×3 (06:23→22:00)
[2019-12-21] MEDS: METOCLOPRAMIDE HCL 5MG/ml INJ 2ml VIAL IV SCH ×4 (06:23→18:28)
[2019-12-21] MEDS: PHENYLEPHRINE IV 250 ML IV SCH ×5 (06:24→22:00)
--- NOTE | 2019-12-21 06:45 | NUR ---
Propofol restarted related to labored breathing and elevated HR in the 140s-150s.
--- NOTE | 2019-12-21 08:00 | NUR ---
TUBE FEEDINGS HELD NO BOWEL SOUNDS PRESENT AND RESIDUALS OF 30CC. WILL NOTIFY
--- NOTE | 2019-12-21 09:15 | NUR ---
SEDATION VACATION HELD- NOT HEMODYNAMICALLY STABLE Addendum: 12/21/19 at 1140 by Nereida Hastings RN Amended: Links added.
[2019-12-21] MEDS: VASOPRESSIN 50 UNITS in SODIUM CHL 0.9% 247.5 ML IV SCH (09:28)
[2019-12-21] MEDS: ATRACURIUM BESYLATE IV SCH (09:28)
[2019-12-21] MEDS: SODIUM CHL 0.9% IV SCH (09:28)
[2019-12-21] MEDS: SODIUM CHLOR 0.9% PF (SALINE LOCK) 10ML VIAL/SYR IV SCH ×2 (10:00→22:00)
[2019-12-21] MEDS: ASCORBIC ACID 1,000 MG TAB PO SCH (10:02)
[2019-12-21] MEDS: ENOXAPARIN SOD 40 MG/0.4 ML SYRINGE SC SCH (10:02)
[2019-12-21] MEDS: FAMOTIDINE (10MG/ML) 2ML VL IV SCH ×2 (10:02→22:00)
[2019-12-21] MEDS: methylPREDNISolone SOD SUCC 40 MG/ML VL IV SCH ×2 (10:02→22:00)
[2019-12-21] MEDS: ZINC SULFATE 220mg CAP or TAB PO SCH (10:02)
[2019-12-21] MEDS: CHOLECALCIFEROL (VITD3) 1,000UNIT=25mCg TAB PO SCH (10:02)
[2019-12-21] MEDS: acetaZOLAMIDE SODIUM 500 MG VL IV SCH (10:02)
[2019-12-21] MEDS: PROPOFOL 100 ML IV SCH ×3 (11:15→20:30)
--- NOTE | 2019-12-21 11:15 | NUR ---
PATIENTS DAUGHTER CALLED PROVIDED PASSWORD. UPDATED ON STATUS AND EVENTS THROUGHOUT THE NIGHT.
--- NOTE | 2019-12-21 11:35 | NUR ---
Nutrition Followup Note Wt: 64.6 kg Pt`s covid +. Pt intubated and sedated with propofol running @ 10.89 ml/hr and with propofol providing 287 kcals from lipids. Per RN note pt continues to have high residuals, pt TF being held d/t to residuals. Suggest TPN nutrition support be initiated. Will f/u in 2-3 days. Est Energy needs: 4775-1562 kcals (20-23 kcal/kgBW), Est Protein needs: 50-62 gms/day (0.8-1.0 gm/kgBW). Will continue to monitor and reassess prn. Labs: GLUC 116H, BUN 23H, Creat 0.29L, Alb 2.1L BM: Pt had no BM today per RN doc Skin: BS 10, high risk, full wound care details in RN doc PES: 1) Inadequate oral intake aeb pt with ave of 38% PO intake over 4 meals r/t pt with a poor appetite 2) Altered nutrition related lab values aeb hyperglycemia, hypocalcemia, elev LFTs, elev Alk Phos, mod hypoalbuminemia r/t current medical condition Comments Will continue to closely monitor pertinent labs, PO status and skin status prn. Will followup in 2-3 days 1) Continue TF of Glucerna 1.2 at rate medically feasible with a goal rate at 50 ml/hr per MD approval if off propofol 2) Advance diet as medically feasible 3) Continue current plan of care
--- NOTE | 2019-12-21 17:04 | NUR ---
DR SOLO AT BEDSIDE DISCUSSED PATIENTS STATUS, RECEIVED NEW ORDERS
[2019-12-21] MEDS ORDERED: SODIUM CHLORIDE 0.9% 1,000 ML IV ONE (17:15)
[2019-12-21] MEDS ORDERED: TPN PER PHARMACY 0 ML IV SCH (17:15)
--- NOTE | 2019-12-21 17:53 | NUR ---
PATIENTS DAUGHTER CALLED FOE UPDATE PROVIDED PASSWORD. UPDATED ON CURRENT STATUS. ADDRESSED CONCERNS
--- NOTE | 2019-12-21 18:30 | NUR ---
DR DUNBAR AT BEDSIDE DISCUSSED PATIENTS STATUS. NEW ORDERS RECEIVED
[2019-12-21] MEDS: SODIUM CHLORIDE 0.9% 1,000 ML IV SCH (19:00)
--- NOTE | 2019-12-21 19:45 | NUR ---
Opening Shift Note: Patient is intubated/sedated. Previous admitted to [facility]; ICU transfer/intubated on 12/01/19. ET size 7.5/20 @ the lip. Settings: PC rate 22; FiO2 55%; PEEP 10; pressure 22. Neuro: pupils are 3 mm/sluggish; flaccid ext.; hypoactive cough/gag. Cardio: NSR 90s-ST 100s; SBP 100s-110s; weak DP pulses. Resp: x3 chest tubes (right/left lateral; right anterior) with min current output; left lateral presents with a leak; Dr. Anaya aware; no secretions from ET tube. GI: OGT clamped at this time; not tolerating feedings, TPN to start on 12/22/19. Landeros inserted on 12/01/19 for strict I/O. Skin: upper chest anterior bruising; right/left arm bruising; pressure area to bilateral buttocks/sacral area: optifoams dry and intact; subcutaneous emph. is present around patient's neck area. IVs: right femoral ART line inserted on 12/07/19; left IJ TLC inserted on 12/02/19 (CVP/ABX/T/Aden @ 65); NS @ 50. RUE PICC triple lumen inserted on 12/12/19 running, Versed @ 15, Fentanyl @ 200; propofol @ 50. Patient is COVID +, all precautions in place. Previously received a total x3 units of PRBCs. Will continue to round/reposition/perform oral care prn.
[2019-12-21] MEDS: NOREPINEPHRINE 8 MG/250ML KIT 250 ML IV SCH (20:45)
--- NOTE | 2019-12-21 22:00 | NUR ---
Patient's daughter, Kenzie, updated on current plan of care.
[2019-12-21] MEDS: EPINEPHrine HCL 250 ML IV SCH (22:53)
[2019-12-22] VITALS (102 sets, daily range): BP systolic 90–144; BP diastolic 37–98
[2019-12-22] MEDS: MIDAZOLAM HCL 50 MG in SODIUM CHL 0.9% 50 ML IV SCH ×7 (01:30→21:56)
--- NOTE | 2019-12-22 04:45 | NUR ---
Patient bathe/linen change Patient given complete CHG bath. Skin integrity assessed for any changes. Linens and gown changed. Patient repositioned for comfort.
[2019-12-22] MEDS: PHENYLEPHRINE IV 250 ML IV SCH ×3 (04:59→21:58)
--- NOTE | 2019-12-22 05:00 | NUR ---
Wound care photo taken of patient's bilateral buttocks/sacral area.
[2019-12-22] MEDS: PROPOFOL 100 ML IV SCH ×2 (05:30→11:15)
[2019-12-22] MEDS: IPRATROPIUM BROM 0.5 MG/2.5ML INH SOL NEB SCH ×3 (05:59→22:48)
[2019-12-22] MEDS: InsuLIN REG 1unit/0.01ml Soln (100units/ml) SC SCH ×4 (06:00→18:00)
[2019-12-22] MEDS: ACCU-CHEK COMFORT CURVE STRIP VI SCH ×4 (06:00→18:00)
[2019-12-22] MEDS: METOCLOPRAMIDE HCL 5MG/ml INJ 2ml VIAL IV SCH ×4 (06:00→18:00)
[2019-12-22] MEDS: MEROPENEM 1GM IVPB 100 ML IV SCH ×3 (06:00→21:42)
[2019-12-22] MEDS: LEVALBUTEROL HCL 1.25 MG/3 ML NEB NEB SCH ×3 (06:02→22:48)
[2019-12-22 06:28] LABS: Potassium 3.4 mmol/L (3.5-5.1)
[2019-12-22] MEDS: fentaNYL Drip 2500mCg/250mlNS 250 ML IV SCH (06:30)
[2019-12-22 06:41] LABS: Albumin 1.8 g/dL (3.4-5.0); Bilirubin, Total 0.7 mg/dL (0.2-1.0); Calcium 8.5 mg/dL (8.5-10.1); Magnesium 2.3 mg/dL (1.6-2.6); Phosphorus 1.9 mg/dL (2.5-4.90); Pre Albumin 17.3 mg/dL (20.0-40.0); Total Protein 4.4 g/dL (6.4-8.2)
--- NOTE | 2019-12-22 08:20 | NUR ---
Respiratory note: CALLED DR. SANTIAGO WITH [facility] CRITICAL RESULT. MESSAGE LEFT.
[2019-12-22] MEDS ORDERED: POTASSIUM PHOSPHATE 26.4 MEQ in SODIUM CHL 0.9% 100 ML IV ONE (09:30)
[2019-12-22] MEDS: ASCORBIC ACID 1,000 MG TAB PO SCH (11:12)
[2019-12-22] MEDS: methylPREDNISolone SOD SUCC 40 MG/ML VL IV SCH ×2 (11:12→21:42)
[2019-12-22] MEDS: ZINC SULFATE 220mg CAP or TAB PO SCH (11:12)
[2019-12-22] MEDS: CHOLECALCIFEROL (VITD3) 1,000UNIT=25mCg TAB PO SCH (11:13)
[2019-12-22] MEDS: ENOXAPARIN SOD 40 MG/0.4 ML SYRINGE SC SCH (11:13)
[2019-12-22] MEDS: FAMOTIDINE (10MG/ML) 2ML VL IV SCH ×2 (11:13→21:42)
[2019-12-22] MEDS: SODIUM CHLOR 0.9% PF (SALINE LOCK) 10ML VIAL/SYR IV SCH ×2 (11:14→21:42)
[2019-12-22] MEDS: VASOPRESSIN 50 UNITS in SODIUM CHL 0.9% 247.5 ML IV SCH (14:23)
[2019-12-22] MEDS: SODIUM CHL 0.9% IV SCH (14:23)
[2019-12-22] MEDS: ATRACURIUM BESYLATE IV SCH (14:23)
--- NOTE | 2019-12-22 14:24 | NUR ---
SPOKE WITH BUDDY CAGLE, UPDATED ON PLAN OF CARE ALL QUESTIONS ADDRESSED. REQUESTING TO SPEAK WITH MANAGER OF PRODUCT.
[2019-12-22] MEDS: SODIUM CHLORIDE 0.9% 1,000 ML IV SCH (15:00)
--- NOTE | 2019-12-22 16:00 | NUR ---
DR FRANCOIS SPOKE WITH FAMILY REGARDING PATIENT STATUS
--- NOTE | 2019-12-22 17:30 | NUR ---
DR SOLO AT BEDSIDE
--- NOTE | 2019-12-22 18:10 | NUR ---
WOUND CARE NOTE: Wound care to see patient due to skin integrity issue noted by bedside nurse upon assessment. Bedside nurse took photograph of patient's wounds upon discovery for reference. Patient continue resting on ICU bed in Rm. 105. Patient is intubated and mechanically ventilated. Patient appears to be in no pain using Horan Gonzalez Faces Pain Scale. Her Americo score is 10. Skin/wound assessment done with the assistance of patient's nurse, JHON Tavarez. Patient's developed open partial thickness wound to L buttock measuring 5x2.5cm. Wound appears to be an open blister. Wound is red with dark red vandana wound. Her Rt buttock has 2.5x1.2cm intact serum filled blister to non-blanchable erythremic skin. Rt and Lt buttocks wounds are consistent with Stage 2 pressure injuries, no drainage/odor noted. Vandana care given, applied Z Guard cream and covered open wound with Opti foam gentle dressing. Chest tube insertion sites to Rt and Lt upper chest with C/D/I occlusive dressing. R ear lobe noted with tiny scabbed abrasion, area is clean and dry, left open to air. Repositioned patient for comfort facing to her Rt side, redistributed pressure points with pillows. Applied rolled linen to Rt lateral face area to offload pressure. Patient tolerated well. JHON Tavarez at bedside. RECOMMENDATION: BID/PRN dressing change to Rt and Lt buttocks per MD orders, continuation of all other wound care order prescribed by MD, continue with skin/wound plan of care, continue monitoring by wound care while patient is hospitalized. Addendum: 12/22/19 at 1900 by Sangeeta Sosa RN Amended: Links added.
--- NOTE | 2019-12-22 19:10 | NUR ---
OPENING NOTES ASSUMED CARE, ON VENT AND SEDATION, WITH INTACT IV LINES AND RIGHT FEMORAL A-LINE, GREEN CATHETER DRAINING TO A DARK SHANEKA URINE, OGT IN PLACE AND CHEST TUBES X 3 PATENT AND INTACT WITH NO AIR LEAK. BED IN LOWEST POSITION WITH SIDE RAILS UP, BED ALARM ON. AIRBORNE PRECAUTION OBSERVED.
[2019-12-22] MEDS ORDERED: TPN PER PHARMACY IV NR ×6 (20:00)
[2019-12-22] MEDS: NOREPINEPHRINE 8 MG/250ML KIT 250 ML IV SCH (20:45)
[2019-12-22] MEDS: EPINEPHrine HCL 250 ML IV SCH (22:53)
[2019-12-23] VITALS (102 sets, daily range): BP systolic 81–157; BP diastolic 36–84
--- NOTE | 2019-12-23 00:20 | NUR ---
DRESSING DRESSING OF CHEST TUBE SITES IN THE RIGHT ANTERIOR CHEST AND RIGHT LATERAL CHEST DONE, DRESSINGS NOTED TO BE DRY AND INTACT.
[2019-12-23] MEDS: ACCU-CHEK COMFORT CURVE STRIP VI SCH ×4 (00:23→17:28)
[2019-12-23] MEDS: InsuLIN REG 1unit/0.01ml Soln (100units/ml) SC SCH ×4 (00:23→17:29)
--- NOTE | 2019-12-23 02:00 | NUR ---
MORNING CARE DONE
[2019-12-23] MEDS: MIDAZOLAM HCL 50 MG in SODIUM CHL 0.9% 50 ML IV SCH ×3 (02:32→15:36)
[2019-12-23 06:00] LABS: Basophils # (auto) 0.1 10 ^3/uL (0-0.2); Basophils % (auto) 0.6 % (0.0-2.0); Eosinophils # (auto) 0 10 ^3/uL (0-0.8); Eosinophils % (auto) 0.1 % (0.0-7.0); Hematocrit 29.1 % (36.0-46.0); Hemoglobin 9.4 g/dL (12.2-16.2); Lymphocytes # (auto) 0.2 10 ^3/uL (0.4-5.4); Lymphocytes % (auto) 1.7 % (10.0-50.0); Mean Corpuscular Hemoglobin 30.8 pg (28.0-32.0); Mean Corpuscular Hgb Conc. 32.2 g/dL (32.0-36.0); Mean Corpuscular Volume 95.7 fL (80.0-100.0); Monocytes # (auto) 0.4 10 ^3/uL (0-1.3); Monocytes % (auto) 2.5 % (0.0-12.0); Neutrophils # (auto) 13.7 10 ^3/uL (1.6-8.6); Neutrophils % (auto) 95.1 % (37.0-80.0); Platelet Count (auto) 233 10^3/uL (140-450); Red Blood Cells 3.04 10^6/uL (4.0-5.20); Red Cell Distribution Width 16.4 % (11.8-14.3); White Blood Cell 14.4 10^3/uL (4.4-10.8)
[2019-12-23] MEDS: METOCLOPRAMIDE HCL 5MG/ml INJ 2ml VIAL IV SCH ×4 (06:11→18:20)
[2019-12-23] MEDS: MEROPENEM 1GM IVPB 100 ML IV SCH ×3 (06:11→22:34)
[2019-12-23] MEDS: PHENYLEPHRINE IV 250 ML IV SCH ×3 (06:13→22:37)
[2019-12-23 06:18] LABS: Albumin 1.9 g/dL (3.4-5.0); Calcium 8.5 mg/dL (8.5-10.1); Magnesium 2.3 mg/dL (1.6-2.6); Potassium 3.6 mmol/L (3.5-5.1)
[2019-12-23 06:23] LABS: BUN/Creatinine Ratio 70.6; Bilirubin, Total 0.5 mg/dL (0.2-1.0); Phosphorus 3.1 mg/dL (2.5-4.90); Total Protein 4.8 g/dL (6.4-8.2)
[2019-12-23] MEDS: LEVALBUTEROL HCL 1.25 MG/3 ML NEB NEB SCH ×3 (07:31→22:31)
[2019-12-23] MEDS: IPRATROPIUM BROM 0.5 MG/2.5ML INH SOL NEB SCH ×3 (07:31→22:30)
--- NOTE | 2019-12-23 07:35 | NUR ---
ASSESS- PT. LYING IN BED ON VENT SIZE # 7.5 ET, 20 AT THE LIP, PC-22, PS-22, PEEP-10, FIO2-60%. LUNGS CLEAR STELLA. INSPIRATORY AND EXPIRATORY, DIMINISHED THROUGHOUT. HYPOACTIVE GAG/COUGH REFLEX. PUPILS 3 AND SLUGGISH STELLA. RESPONDS TO PAINFUL/TACTILE STIMULI. NO MOVEMENT OF EXTREMITIES SEEN. ON VERSED GTT. AT 15 MG./HR., FENTANYL GTT. AT 200 MCG., AND PROPOFOL GTT. AT [address] LT. LATERAL 20 CM. H20 SUCTION WITH SEROUS DRAINAGE WITH DSG. D/I. RT. ANTERIOR CT WITH 20 CM. H20 SUCTION WITH SANGINGOUS DRAINAGE WITH DSG. D/I, AND RT. LATERAL CT TO 20 CM. H20 SUCTION WITH SANGINGINOUS DRAINAGE WITH DSG. D/I. ABD. SOFT, ROUND. BOWEL SOUNDS HYPOACTIVE ALL FOUR QUADRANTS. OGT IN PLACE, CLAMPED. F/C TO GRAVITY WITH CLEAR DK. SHANEKA URINE. RADIAL PULSES WEAK, PALPABLE STELLA. DORSALIS PEDAL PULSES WEAK, PALPABLE STELLA. NON-PITTING EDEMA ARMS STELLA. NON-PITTING EDEMA LE STELLA. SCD RT. LEG. BRUISES TO ARMS STELLA. AND ABD. AREA. DTI TO BUTTOCKS WITH OPTIFOAM DSG. D/I. NEOSYNEPHRINE GTT. AT 30 MCG. A-LINE TO RT. FFEMORAL INTACT WITH GOOD WAVEFORM. TLC LT. IJ INTACT WITH CVP TO DISTAL PORT. EDWINA PICC TLC INTACT. PT. IS COVID POSITIVE IN NEGATIVE AIRFLOW RM. RECTAL PROBE IN PLACE.
[2019-12-23] MEDS: fentaNYL Drip 2500mCg/250mlNS 250 ML IV SCH ×2 (08:15→13:59)
--- NOTE | 2019-12-23 09:20 | NUR ---
PT'S. DAUGHTER CALLED WITH PASSWORD. GAVE UPDATE OVER THE PHONE.
[2019-12-23] MEDS: SODIUM CHL 0.9% IV SCH (09:45)
[2019-12-23] MEDS: VASOPRESSIN 50 UNITS in SODIUM CHL 0.9% 247.5 ML IV SCH (09:45)
[2019-12-23] MEDS: ATRACURIUM BESYLATE IV SCH (09:45)
[2019-12-23] MEDS: SODIUM CHLOR 0.9% PF (SALINE LOCK) 10ML VIAL/SYR IV SCH ×2 (09:46→22:35)
[2019-12-23] MEDS: methylPREDNISolone SOD SUCC 40 MG/ML VL IV SCH ×2 (09:46→22:35)
[2019-12-23] MEDS: FAMOTIDINE (10MG/ML) 2ML VL IV SCH ×2 (09:46→22:34)
[2019-12-23] MEDS: ASCORBIC ACID 1,000 MG TAB PO SCH (09:46)
[2019-12-23] MEDS: ENOXAPARIN SOD 40 MG/0.4 ML SYRINGE SC SCH (09:47)
[2019-12-23] MEDS: CHOLECALCIFEROL (VITD3) 1,000UNIT=25mCg TAB PO SCH (09:47)
[2019-12-23] MEDS: ZINC SULFATE 220mg CAP or TAB PO SCH (09:47)
--- NOTE | 2019-12-23 11:00 | NUR ---
A-LINE SBP 90'S-100'S. REMAINS ON NEOSYNEPHRINE GTT. AT 30 MCG.
--- NOTE | 2019-12-23 14:40 | NUR ---
DR. SOLO Provider/Hospitalist at bedside. GAVE UPDATE ON PT. DR. SOLO CALLED PT'S. DAUGHTER AND GAVE UPDATE OVER PHONE. Addendum: 12/23/19 at 1853 by Holly Smith RN ASSESSMENT CORRECT TIME AT 0810.
--- NOTE | 2019-12-23 19:00 | NUR ---
OPENING NOTES ASSUMED CARE, ON VENT AND SEDATION, CT X 3 PATENT AND INTACT, OGT AND GREEN CATHETER INTACT, ON TPN, SCD ON RIGHT LEG, STILL UNRESPONSIVE WITH FLACCID EXTREMITIES. BED IN LOWEST POSITION WITH SIDE RAILS UP, BED ALARM ON. WILL CONTINUE CARE.
[2019-12-23] MEDS ORDERED: DEXTROSE (50%) 50ML SYRG IV SCH (19:30)
[2019-12-23] MEDS ORDERED: TPN PER PHARMACY IV NR ×7 (20:00)
--- NOTE | 2019-12-23 21:45 | NUR ---
Dr. Breen at bedside, updated on pt's status, no new orders made
[2019-12-23] MEDS ORDERED: PHENYLEPHRINE IV 250 ML IV ONE (22:03)
[2019-12-24] VITALS (98 sets, daily range): BP systolic 73–121; BP diastolic 31–65
--- NOTE | 2019-12-24 04:00 | NUR ---
Patient bathe/linen change Patient given complete bath. Skin integrity assessed for any changes. Linens changed. Patient repositioned for comfort. Sacral optifoam
--- NOTE | 2019-12-24 04:30 | NUR ---
BP DROPPING AFTER LINENS CHANGE AND TURNING OF PT, BP 73/38, 79/41, ANNELIESE MAXED OUT. WILL CONTINUE TO MONITOR VS
[2019-12-24 05:49] LABS: Albumin 1.9 g/dL (3.4-5.0); BUN/Creatinine Ratio 38.5; Bilirubin, Total 0.6 mg/dL (0.2-1.0); Magnesium 2.1 mg/dL (1.6-2.6); Phosphorus 5.2 mg/dL (2.5-4.90); Total Protein 4.7 g/dL (6.4-8.2)
[2019-12-24] MEDS: IPRATROPIUM BROM 0.5 MG/2.5ML INH SOL NEB SCH ×3 (05:54→22:49)
[2019-12-24] MEDS: LEVALBUTEROL HCL 1.25 MG/3 ML NEB NEB SCH ×3 (05:54→22:49)
[2019-12-24] MEDS: ACCU-CHEK COMFORT CURVE STRIP VI SCH ×5 (06:00→22:22)
--- NOTE | 2019-12-24 06:00 | NUR ---
MINIMAL TURNING THE WHOLE SHIFT D/T UNSTABLE VS
--- NOTE | 2019-12-24 06:25 | NUR ---
PAGED DR. GLASER AND SPOKE WITH KLARISSA THRU HIS EXCHANGE D/T LOW URINE OUTPUT, 30 ML ONLY FOR THE WHOLE SHIFT. AWAITING CALL BACK.
[2019-12-24] MEDS: MEROPENEM 1GM IVPB 100 ML IV SCH ×3 (06:28→22:00)
[2019-12-24] MEDS: METOCLOPRAMIDE HCL 5MG/ml INJ 2ml VIAL IV SCH ×4 (06:30→18:23)
[2019-12-24] MEDS: InsuLIN REG 1unit/0.01ml Soln (100units/ml) SC SCH ×5 (06:31→22:05)
--- NOTE | 2019-12-24 07:05 | NUR ---
SBP 80'S. TURNED OFF PROPOFOL GTT. MONITORING BP.
--- NOTE | 2019-12-24 08:00 | NUR ---
PT. LYING IN BED ON VENT SIZE # 7.5 ET, 20 AT THE LIP, PC-22, PS-22, PEEP-10, FIO2-60%. LUNGS CLEAR STELLA. INSPIRATORY AND EXPIRATORY, DIMINISHED THROUGHOUT. PT. HAS HYPOACTIVE GAG/COUGH REFLEX. PUPILS 3 AND SLUGGISH STELLA. RESPONDS TO DEEP PAINFUL/TACTILE STIMULI. NO MOVEMENT OF EXTREMITIES SEEN. ON VERSED GTT. AT 15 MG./HR. AND FENTANYL GTT. AT [address] TO 20 CM. H20 SUCTION LT. LATERAL WITH SEROUS DRAINAGE WITH DSG. D/I. CT TO 20 CM. H20 SUCTION RT. ANTERIOR CHEST WITH SANGINOUS DRAINAGE WITH DSG. D/I. CT TO 20 CM. H20 SUCTION RT. LATERAL WITH DSG. D/I. ABD. SOFT, FLAT. BOWEL SOUNDS HYPOACTIVE ALL FOUR QUADRANTS. OGT IN PLACE, CLAMPED. F/C TO GRAVITY WITH CLEAR DK. SHANEKA URINE SCANT AMOUNT. RADIAL PULSES WEAK, PALPABLE. DORSALIS PEDAL PULSES WEAK, PALPABLE. NON-PITTING EDEMA ARMS STELLA. NON-PITTING EDEMA LOWER EXT. STELLA. SCD RT. LEG. RECTAL PROBE IN PLACE. TLC LT. IJ INTACT WITH CVP TO DISTAL PORT. PICC EDWINA TLC INTACT. TPN AT 46 CC/HR. NEOSYNEPHRINE GTT. AT 180 MCG. A-LINE RT. FEMORAL INTACT, DSG. D/I. BRUISES TO ARMS STELLA. AND ABD. AREA WITH BRUISES. DTI TO BUTTOCKS WITH BLISTER WITH OPTIFOAM DSG. D/I. PT. IS COVID-19 POSITIVE IN NEG. AIRFLOW RM. IN ISOLATION.
[2019-12-24] MEDS: SODIUM CHL 0.9% IV SCH (09:45)
[2019-12-24] MEDS: ATRACURIUM BESYLATE IV SCH (09:45)
[2019-12-24] MEDS: VASOPRESSIN 50 UNITS in SODIUM CHL 0.9% 247.5 ML IV SCH (09:45)
--- NOTE | 2019-12-24 09:48 | NUR ---
DR. FRANCOIS CALLED THIS AM AND GAVE UPDATE ON PT. AND ABG RESULTS FROM THIS AM. NEW ORDERS RECEIVED. NOTIFIED RT ARTURO OF VENT SETTING CHANGE.
[2019-12-24] MEDS: EPINEPHrine HCL 250 ML IV SCH ×2 (10:00→22:22)
[2019-12-24] MEDS ORDERED: BUMETANIDE 2.5mg/10ml (0.25 mg/ml) INJ IV SCH (10:00)
[2019-12-24] MEDS: PROPOFOL 100 ML IV SCH ×2 (10:00→20:50)
[2019-12-24] MEDS: ASCORBIC ACID 1,000 MG TAB PO SCH (10:16)
[2019-12-24] MEDS: methylPREDNISolone SOD SUCC 40 MG/ML VL IV SCH ×2 (10:16→22:00)
[2019-12-24] MEDS: FAMOTIDINE (10MG/ML) 2ML VL IV SCH ×2 (10:16→22:00)
[2019-12-24] MEDS: CHOLECALCIFEROL (VITD3) 1,000UNIT=25mCg TAB PO SCH (10:16)
[2019-12-24] MEDS: ZINC SULFATE 220mg CAP or TAB PO SCH (10:16)
[2019-12-24] MEDS: PHENYLEPHRINE IV 250 ML IV SCH (10:17)
[2019-12-24] MEDS: ENOXAPARIN SOD 40 MG/0.4 ML SYRINGE SC SCH (10:17)
[2019-12-24] MEDS: SODIUM CHLOR 0.9% PF (SALINE LOCK) 10ML VIAL/SYR IV SCH ×2 (10:17→22:00)
[2019-12-24] MEDS: NOREPINEPHRINE 8 MG/250ML KIT 250 ML IV SCH (10:25)
--- NOTE | 2019-12-24 10:25 | NUR ---
SBP DECREASING TO 80'S AT TIMES TO LOW 90'S. ON NEOSYNEPHRINE GTT. AT 180 MCG. STARTED LEVOPHED GTT. AT 2 MCG. MONITORING BP.
[2019-12-24] MEDS: PHENYLEPHRINE INJ 40 MG in SODIUM CHL 0.9% 250 ML IV SCH ×2 (11:37→18:24)
--- NOTE | 2019-12-24 12:41 | NUR ---
DR. SOLO CALLED. GAVE UPDATE ON PT. INFORMED OF MD OF SPEAKING WITH PT'S. DAUGHTER PREVIOUSLY AND ALLOWING FAMILY TO COME IN SEE PT. DUE TO CHANGE IN CONDITION SINCE YEST. DR. SOLO SAID TO PAGE HIM WHEN DAUGHTER AND FAMILY COME TO SPEAK WITH HER ON THE PHONE AND GIVE UPDATE ON PT'S. CONDITION.
--- NOTE | 2019-12-24 12:52 | NUR ---
Nutrition Followup Notes Wt: 70.5 kg Pt`s covid +. Pt intubated and sedated with Fentanyl. Per RN note pt continues to have high residuals, pt TF being held. Pt with TPN @ 46+ ml/hr, providing 1090 kcals, 60g protein, and 850 NPCs. Pt with inadequate energy intake from PN support aeb 76% to 88% of est caloric needs. Protein intake from PN support is adequate aeb 97% to 120% protein needs. Will f/u in 2-3 days. Est Energy needs: 3258-7320 kcals (20-23 kcal/kgBW), Est Protein needs: 50-62 gms/day (0.8-1.0 gm/kgBW). Will continue to monitor and reassess prn. Labs: GLUC 233H, Alb 1.9L, AST 130 H, ALT 237 H BM: Pt had no BM today. Last BM noted on 11/30 per RN doc Skin: BS 12, high risk, full wound care details in RN doc PES: 1) Inadequate oral intake aeb pt with ave of 38% PO intake over 4 meals r/t pt with a poor appetite 2) Altered nutrition related lab values aeb hyperglycemia, hypocalcemia, elev LFTs, elev Alk Phos, mod hypoalbuminemia r/t current medical condition Comments Will continue to closely monitor pertinent labs, PO status and skin status prn. Will followup in 2-3 days 1) Continue TF of Glucerna 1.2 at rate medically feasible with a goal rate at 50 ml/hr per MD approval if off propofol 2) Advance diet as medically feasible 3) Continue current plan of care
--- NOTE | 2019-12-24 14:00 | NUR ---
PT. HEMODYNAMICALLY UNSTABLE TO TURN AT THIS TIME.
[2019-12-24] MEDS: fentaNYL Drip 2500mCg/250mlNS 250 ML IV SCH (14:15)
--- NOTE | 2019-12-24 14:20 | NUR ---
RFamily updated on pt status Family of HARVEYSYLVIA updated on patient's status and condition. All questions and concerns addressed. DAUGHTER, SON AND PT'S. verbalized understanding. VISITING AT DOOR FOR RM. 105, PT. IS COVID POSITIVE, NOT GOING INTO PT'S. RM.
--- NOTE | 2019-12-24 14:30 | NUR ---
Called/paged Dr. SOLO called re:. Waiting for call back. Continue care.
--- NOTE | 2019-12-24 14:50 | NUR ---
returned call Dr. SOLO returned call, updated on patient status and reason for call, orders received. SPOKE WITH PT'S. DTG. ON THE PHONE WHO INTERPERTED TO TO MAKE PT. DNR STATUS, CONTINUE VASOPRESSORS AND VENTILATOR SUPPORT. ORDER FOR DNR RECEIVED WITH 2ND. RN KEKE VERIFYING. Continue care.
--- NOTE | 2019-12-24 16:00 | NUR ---
PT. HEMODYNAMICALLY UNSTABLE TO TURN AT THIS TIME.
--- NOTE | 2019-12-24 16:04 | NUR ---
DR. BURGESS Provider/Hospitalist at bedside. GAVE UPDATE ON PT. NEW ORDERS RECEIVED.
--- NOTE | 2019-12-24 16:40 | NUR ---
O2 SATS DECREASING TO 89%-90% ON VENT WITH FIO2-60%. NOTIFIED RT ARTURO WHO INCREASED FIO2 TO 70% ON VENT.
[2019-12-24] MEDS: MIDAZOLAM HCL 50 MG in SODIUM CHL 0.9% 50 ML IV SCH ×2 (18:23→21:00)
[2019-12-24] MEDS ORDERED: TPN PER PHARMACY IV NR ×8 (20:00)
--- NOTE | 2019-12-24 20:00 | NUR ---
Opening Shift Note: Patient is intubated/sedated. Previous admitted to [facility]; ICU transfer/intubated on 12/01/19. ET size 7.5/20 @ the lip. Settings: PC rate 26; FiO2 70%; PEEP 10; pressure 22. Neuro: pupils are 3 mm/sluggish; flaccid ext.; hypoactive cough/gag. Cardio: ST 130s-140s; SBP 100s-110s; weak DP pulses. Resp: x3 chest tubes (right/left lateral; right anterior); left lateral presents with a leak; Dr. Anaya aware; no secretions from ET tube. GI: OGT clamped at this time; not tolerating feedings, TPN running @ 49 ml/hr. Caldwell inserted on 12/01/19 for strict I/O; minimal output, caldwell catheter flushed and 250 cc immediately drained, large amounts of sediment present. Skin: upper chest anterior bruising; right/left arm bruising; pressure area/DTI to bilateral buttocks/sacral area: optifoams dry and intact; subcutaneous emph. is present around patient's neck area. IVs: right femoral ART line inserted on 12/07/19; left IJ TLC inserted on 12/02/19 (ABX/Aden @ 180/Levo @ 6). RUE PICC triple lumen inserted on 12/12/19 running, Versed @ 15, Fentanyl @ 200; TPN @ 49 ml/hr. Patient is COVID +, all precautions in place. Previously received a total x3 units of PRBCs. Will continue to round/reposition/perform oral care prn. Pending new COVID In House test to be sent in AM. Patient code status changed to DNR on 12/25/19. Order in EMR and hard copy in patient chart signed by .
[2019-12-25] VITALS (102 sets, daily range): BP systolic 81–122; BP diastolic 36–62
[2019-12-25] MEDS: METOCLOPRAMIDE HCL 5MG/ml INJ 2ml VIAL IV SCH ×4 (00:12→17:10)
[2019-12-25] MEDS: PROPOFOL 100 ML IV SCH (00:30)
[2019-12-25] MEDS: MIDAZOLAM HCL 50 MG in SODIUM CHL 0.9% 50 ML IV SCH ×5 (00:50→21:00)
[2019-12-25] MEDS: NOREPINEPHRINE 8 MG/250ML KIT 250 ML IV SCH ×2 (01:00→02:11)
[2019-12-25] MEDS ORDERED: AMIODARONE 450mg/250ml AE 250 ML IV ONE (01:08)
[2019-12-25] MEDS ORDERED: AMIODARONE 450mg/250ml AE 250 ML IV SCH (01:12)
[2019-12-25] MEDS ORDERED: AMIODARONE HCL (50 MG/ ML) 3 ML VIAL IV ONE (01:14)
[2019-12-25] MEDS ORDERED: AMIODARONE HCL 150 MG in D5W 5% 100 ML IV ONE (01:15)
--- NOTE | 2019-12-25 01:15 | NUR ---
Page sent to Dr. Conner: Page sent to admissions evaluator physician for Dr. Adams (Dr. Conner) in regards to tachycardia. Per notes, patient had previous SVT. Current HR is sustaining in the 140s. Sedation issue ruled out as HR did not decrease with the initiation of propofol. Other sedations include fentanyl @ 200 and Versed @ 15. New order received for Amiodarone drip to be started per protocol.
--- NOTE | 2019-12-25 01:50 | NUR ---
Amiodarone bolus 150mg/100ml D5W started per protocol.
[2019-12-25] MEDS: fentaNYL Drip 2500mCg/250mlNS 250 ML IV SCH ×2 (02:00→13:38)
--- NOTE | 2019-12-25 02:00 | NUR ---
Amiodarone drip started @ 1 mg /min per protocol. HR after bolus is sustaining in the 120s. Will continue to follow drip protocol. Rate change will be endorsed to day shift RN as the change to 0.5mg/min will be at 0800.
[2019-12-25] MEDS: PHENYLEPHRINE INJ 40 MG in SODIUM CHL 0.9% 250 ML IV SCH ×3 (02:13→21:00)
[2019-12-25] MEDS: ACETAMINOPHEN 325 MG TAB PO PRN (02:15)
[2019-12-25 04:33] LABS: Hematocrit 27.8 % (36.0-46.0); Mean Corpuscular Hemoglobin 31.5 pg (28.0-32.0); Mean Corpuscular Hgb Conc. 32.5 g/dL (32.0-36.0); Mean Corpuscular Volume 97.1 fL (80.0-100.0); Platelet Count (auto) 212 10^3/uL (140-450); Red Blood Cells 2.86 10^6/uL (4.0-5.20); Red Cell Distribution Width 16.2 % (11.8-14.3); White Blood Cell 16.2 10^3/uL (4.4-10.8)
[2019-12-25 04:51] LABS: Albumin 1.7 g/dL (3.4-5.0); Calcium 7.7 mg/dL (8.5-10.1); Magnesium 1.8 mg/dL (1.6-2.6); Potassium 4.2 mmol/L (3.5-5.1)
[2019-12-25 05:00] LABS: Basophils % (manual) 0 (0.0-2.0); Blast Cells 0; Eosinophils % (manual) 0 (0-7); Metamyelocytes % 0; Myelocytes % 0; Promyelocytes % 0; Reactive Lymphocytes 0
[2019-12-25 05:01] LABS: BUN/Creatinine Ratio 37.8; Bilirubin, Total 0.6 mg/dL (0.2-1.0); CRP High Sensitivity 5.59 mg/dL (< 0.3); Phosphorus 4.4 mg/dL (2.5-4.90); Total Protein 4.5 g/dL (6.4-8.2)
[2019-12-25] MEDS: InsuLIN REG 1unit/0.01ml Soln (100units/ml) SC SCH ×3 (05:19→18:31)
[2019-12-25 05:34] LABS: INR 1.06 (0.9-1.15); Partial Thromboplastin Time 27.8 sec (23.64-32.05)
[2019-12-25] MEDS: ACCU-CHEK COMFORT CURVE STRIP VI SCH ×3 (06:00→17:10)
[2019-12-25] MEDS: MEROPENEM 1GM IVPB 100 ML IV SCH ×3 (06:00→20:52)
[2019-12-25] MEDS: IPRATROPIUM BROM 0.5 MG/2.5ML INH SOL NEB SCH ×3 (06:20→18:29)
[2019-12-25] MEDS: LEVALBUTEROL HCL 1.25 MG/3 ML NEB NEB SCH ×3 (06:20→18:29)
[2019-12-25 06:22] LABS: Band Neutrophils % (manual) 2; Lymphocytes % (manual) 4 (10.0-50.0); Monocytes % (manual) 4 (0-12)
[2019-12-25] MEDS: AMIODARONE 450mg/250ml AE 250 ML IV SCH ×2 (08:00→09:27)
[2019-12-25] MEDS: SODIUM CHL 0.9% IV SCH (08:42)
[2019-12-25] MEDS: ATRACURIUM BESYLATE IV SCH (08:42)
[2019-12-25] MEDS: VASOPRESSIN 50 UNITS in SODIUM CHL 0.9% 247.5 ML IV SCH (08:42)
--- NOTE | 2019-12-25 08:55 | NUR ---
Family updated on pt status Family of SYLVIA HARVEY updated on patient's status and condition. All questions and concerns addressed. Daughter verbalized understanding.
[2019-12-25] MEDS: FAMOTIDINE (10MG/ML) 2ML VL IV SCH ×2 (09:16→20:52)
[2019-12-25] MEDS: CHOLECALCIFEROL (VITD3) 1,000UNIT=25mCg TAB PO SCH (09:16)
[2019-12-25] MEDS: methylPREDNISolone SOD SUCC 40 MG/ML VL IV SCH ×2 (09:20→20:53)
[2019-12-25] MEDS: BUMETANIDE 2.5mg/10ml (0.25 mg/ml) INJ IV SCH (09:21)
[2019-12-25] MEDS: ZINC SULFATE 220mg CAP or TAB PO SCH (09:21)
[2019-12-25] MEDS: ASCORBIC ACID 1,000 MG TAB PO SCH (09:21)
[2019-12-25] MEDS: SODIUM CHLOR 0.9% PF (SALINE LOCK) 10ML VIAL/SYR IV SCH ×2 (09:26→20:52)
--- NOTE | 2019-12-25 10:00 | NUR ---
Picc line Picc line external length noted at 4cm. Documentation showing at 0cm during insertion. A.m. Cxr verifiying correct placement. Blood return noted. Will continue to monitor. Line secured in place.
--- NOTE | 2019-12-25 11:26 | NUR ---
Sedation vacation not indicated at this time. Addendum: 12/25/19 at 1128 by Peace Spaulding RN Amended: Links added.
--- NOTE | 2019-12-25 11:27 | NUR ---
Unable to perform at this time. Patient unstable for turning. Addendum: 12/25/19 at 1128 by Peace Spaulding RN Amended: Links added.
[2019-12-25] MEDS: ENOXAPARIN SOD 40 MG/0.4 ML SYRINGE SC SCH (13:39)
--- NOTE | 2019-12-25 14:45 | NUR ---
POSITION CHANGE NOT TOLERATED. ATTEMPTED TO MAKE A SMALL ADJUSTMENT TO LEFT SIDE. PATIENT DID NOT TOLERATE SMALL POSITION CHANGE BP DECREASED LOW AT 80/30. VASOPRESSORS INCREASED. SEE IV SPREADSHEET. PATIENT REMAINS ON TELE BED AND UNABLE TO REDISTRIBUTE WEIGHT VIA BED WITH TURN ASSIST. HEELS REMAIN OFFLOADED TO RELIEVE HEEL PRESSURES.
--- NOTE | 2019-12-25 16:17 | NUR ---
Family updated on pt status Family of SYLVIA HARVEY updated on patient's status and condition. All questions and concerns addressed. Kenzie verbalized understanding. Daughter stating she is discussing to proceed with terminal wean possibly tomorrow. Daughter and have come to accept but siblings have not at this point. Daughter to call when all family is ready with processes.
--- NOTE | 2019-12-25 17:30 | NUR ---
[place] [employer] Machine Operator updated on patients status. See md orders.
--- NOTE | 2019-12-25 18:00 | NUR ---
Chest tube output- Left lateral chest tube- 100cc of serous fluid. Right lateral chest tube- no output- occasional bubbling noted to water seal, no crepitus noted to area. Right Anterior pigtail catheter - 100cc serosanguineous fluid.
--- NOTE | 2019-12-25 18:49 | NUR ---
Family updated on pt status Family of SYLVIA HARVEY updated on patient's status and condition. All questions and concerns addressed. Kenzie verbalized understanding, daughter stating patients father wants to wait a few more days before making any decision. Family notified their decision is respected and will be notified if any changes occur. Daughter verbalized understanding.
--- NOTE | 2019-12-25 19:30 | NUR ---
Opening Shift Note: Patient is intubated/sedated. Previous admitted to [facility]; ICU transfer/intubated on 12/01/19. ET size 7.5/20 @ the lip. Settings: PC rate 26; FiO2 70%; PEEP 10; pressure 22. Neuro: pupils are 4/5 mm/sluggish; flaccid ext.; hypoactive cough/gag. Cardio: ST 130s; SBP 90s; weak DP pulses. Resp: x3 chest tubes (right/left lateral; right anterior); left/right lateral presents with a leak; Dr. Anaya aware; no secretions from ET tube. GI: OGT clamped at this time; not tolerating feedings, TPN running @ 46 ml/hr. Caldwell inserted on 12/01/19 for strict I/O; minimal output, caldwell catheter flushed, large amounts of sediment present. Skin: upper chest anterior bruising; right/left arm bruising; pressure area/DTI to bilateral buttocks/sacral area: optifoams dry and intact; subcutaneous emph. is present around patient's neck area. IVs: right femoral ART line inserted on 12/07/19; left IJ TLC inserted on 12/02/19 (ABX/Aden @ 180/Levo @ 6). RUE PICC triple lumen inserted on 12/12/19 running, Versed @ 15, Fentanyl @ 200; TPN @ 46 ml/hr. Patient is COVID +, all precautions in place. Previously received a total x3 units of PRBCs. Will continue to round/reposition/perform oral care prn. Pending new COVID In House test results. Patient code status changed to DNR on 12/25/19. Order in EMR and hard copy in patient chart signed by .
[2019-12-25] MEDS ORDERED: TPN PER PHARMACY IV NR ×7 (20:00)
[2019-12-25] MEDS: EPINEPHrine HCL 250 ML IV SCH (20:53)
[2019-12-26] VITALS (102 sets, daily range): BP systolic 63–141; BP diastolic 30–68
[2019-12-26] MEDS: MIDAZOLAM HCL 50 MG in SODIUM CHL 0.9% 50 ML IV SCH ×5 (01:00→17:51)
[2019-12-26] MEDS: InsuLIN REG 1unit/0.01ml Soln (100units/ml) SC SCH ×4 (01:00→17:52)
[2019-12-26] MEDS ORDERED: PHENYLEPHRINE HCL 10 MG/ML VL ONE (04:08)
--- NOTE | 2019-12-26 05:00 | NUR ---
New onset hematuria from caldwell catheter. Catheter irrigation for potential sediment/clot extraction. Multiple small clots extracted but with only 50 ml of bright red output. call centre supervisor physician paged for Dr. Adams ([facility]); new orders received for STAT CBC and hold lovenox at this time.
[2019-12-26] MEDS: MEROPENEM 1GM IVPB 100 ML IV SCH (05:02)
[2019-12-26] MEDS: METOCLOPRAMIDE HCL 5MG/ml INJ 2ml VIAL IV SCH ×4 (05:03→17:51)
[2019-12-26] MEDS: ACCU-CHEK COMFORT CURVE STRIP VI SCH ×4 (05:04→17:52)
[2019-12-26] MEDS: NOREPINEPHRINE 8 MG/250ML KIT 250 ML IV SCH (05:05)
[2019-12-26] MEDS: PHENYLEPHRINE INJ 40 MG in SODIUM CHL 0.9% 250 ML IV SCH ×4 (05:05→22:00)
[2019-12-26 05:07] LABS: Potassium 4.5 mmol/L (3.5-5.1)
[2019-12-26 05:15] LABS: Albumin 1.6 g/dL (3.4-5.0); BUN/Creatinine Ratio 35.7; Bilirubin, Total 0.7 mg/dL (0.2-1.0); Calcium 7.9 mg/dL (8.5-10.1); Phosphorus 4.5 mg/dL (2.5-4.90); Total Protein 4.3 g/dL (6.4-8.2)
[2019-12-26 05:37] LABS: Hematocrit 25.4 % (36.0-46.0); Red Blood Cells 2.59 10^6/uL (4.0-5.20)
[2019-12-26 05:42] LABS: Mean Corpuscular Hgb Conc. 31.6 g/dL (32.0-36.0); Mean Corpuscular Volume 98.2 fL (80.0-100.0); Platelet Count (auto) 211 10^3/uL (140-450); Red Cell Distribution Width 16.5 % (11.8-14.3); White Blood Cell 19.1 10^3/uL (4.4-10.8)
[2019-12-26] MEDS: LEVALBUTEROL HCL 1.25 MG/3 ML NEB NEB SCH ×3 (06:18→23:26)
[2019-12-26] MEDS: IPRATROPIUM BROM 0.5 MG/2.5ML INH SOL NEB SCH ×3 (06:18→23:26)
--- NOTE | 2019-12-26 06:18 | NUR ---
Respiratory note: PT RECEIVED ON VENT # V21. PLUGGED INTO A RED OUTLET AND PROPER O2 SOURCE. AMBU BAG/MASK AT BEDSIDE. ETT SECURED WITH A HOLISTER. NO LIP BREAKDOWN NOTED. BILATERAL BS ARE CLEAR THROUGHOUT. SUCTIONED WITH SCANT RETURN. MED NEB TX GIVEN INLINE VIA AEROGEN,TOLERATED WELL.PT IS ON SEDATION. SKIN IS WARM AND DRY TO THE TOUCH WITH EDEMA NOTED ON ALL APPENDICULARS.POC: MAINTAIN ADEQUATE OXYGENATION,VENTILATION,AND PULMONARY HYGIENE.
[2019-12-26 06:22] LABS: Basophils % (manual) 0 (0.0-2.0); Blast Cells 0; Eosinophils % (manual) 0 (0-7); Promyelocytes % 0; Reactive Lymphocytes 0
--- NOTE | 2019-12-26 06:52 | NUR ---
Page sent to Dr. Anaya in regards to AM ABG. Worsening respiratory acidosis with a pH 6.931; CO2 78.3; HCO3 16.1.
[2019-12-26 07:35] LABS: Band Neutrophils % (manual) 3; Lymphocytes % (manual) 7 (10.0-50.0); Metamyelocytes % 1; Monocytes % (manual) 3 (0-12); Myelocytes % 1
[2019-12-26] MEDS: VASOPRESSIN 50 UNITS in SODIUM CHL 0.9% 247.5 ML IV SCH (08:00)
[2019-12-26] MEDS: SODIUM CHL 0.9% IV SCH (08:00)
[2019-12-26] MEDS: ATRACURIUM BESYLATE IV SCH (08:00)
--- NOTE | 2019-12-26 09:10 | NUR ---
ASSESSMENT AND MEDS DONE AT THIS TIME-CARE COMBINED TO DECREASE EXPOSURE TO COVID. PT IS HEMODYNAMICALLY UNSTABLE, UNABLE TO TURN OR ELEVATE HOB. WILL CONT TO REASSESS. NG TO SUCTION DRAINING LG AMT BROWN LIQUID. PT IS DNR.
[2019-12-26] MEDS: methylPREDNISolone SOD SUCC 40 MG/ML VL IV SCH ×2 (09:19→21:37)
[2019-12-26] MEDS: SODIUM CHLOR 0.9% PF (SALINE LOCK) 10ML VIAL/SYR IV SCH ×2 (09:20→21:37)
[2019-12-26] MEDS: BUMETANIDE 2.5mg/10ml (0.25 mg/ml) INJ IV SCH (09:20)
[2019-12-26] MEDS: ZINC SULFATE 220mg CAP or TAB PO SCH (09:20)
[2019-12-26] MEDS: FAMOTIDINE (10MG/ML) 2ML VL IV SCH ×2 (09:20→21:36)
[2019-12-26] MEDS: CHOLECALCIFEROL (VITD3) 1,000UNIT=25mCg TAB PO SCH (09:21)
[2019-12-26] MEDS: ASCORBIC ACID 1,000 MG TAB PO SCH (09:21)
--- NOTE | 2019-12-26 09:45 | NUR ---
Respiratory note: BILATERAL BS CLEAR AND DIMINISHED, SUCTIONED WITH SCANT RETURN.ALARMS VERIFIED AND AUDIBLE. NO VENT CHANGES ORDERED AT THIS TIME. WILL CONTINUE TO MONITOR ORDERED.
--- NOTE | 2019-12-26 10:05 | NUR ---
I SPOKE TO DAUGHTER GURJIT. SHE IS WAITING FOR BROTHER TO COME; FAMILY HAS BEEN GIVEN PERMISSION TO VISIT PT AND WILL DISCONTINUE ALL CARE AT THAT TIME
--- NOTE | 2019-12-26 11:42 | NUR ---
Respiratory note: PT SPO2 87%. INCREASED FIO2 TO 100%. WILL INFORM JHON HENDRIX OF CHANGES.
--- NOTE | 2019-12-26 12:48 | NUR ---
Nutrition Followup Notes Wt: 70.2 kg Pt`s covid +. Pt intubated and sedated with Fentanyl and propofol at 3.63 ml/hr to provide 96 kcal from lipids. Pt with TPN @ 46 ml/hr, providing 1090 kcals, 60g protein, and 850 NPCs. Pt with inadequate energy intake from PN support aeb 76% to 88% of est caloric needs. Protein intake from PN support is adequate aeb 97% to 120% protein needs. Will f/u in 2-3 days. Est Energy needs: 8914-7120 kcals (20-23 kcal/kgBW), Est Protein needs: 42-56 gms/day (0.6-0.8 gm/kgBW r/t elevated RFT). Will continue to monitor and reassess prn. Labs: BUN 70H, Creat 1.96H, Alb 1.6L, GLUC 264H, CA 7.9L BM: Pt had no BM today. Last BM noted on 11/30 per RN doc Skin: BS 10, high risk, full wound care details in RN doc PES: 1) Inadequate oral intake aeb pt with ave of 38% PO intake over 4 meals r/t pt with a poor appetite 2) Altered nutrition related lab values aeb hyperglycemia, hypocalcemia, elev LFTs, elev Alk Phos, mod hypoalbuminemia r/t current medical condition Comments Will continue to closely monitor pertinent labs, PO status and skin status prn. Will followup in 2-3 days 1) Continue TPN to meet >75% of needs, consider TF if GI is accessible and depending on residuals. 2) Advance diet as medically feasible 3) Continue current plan of care
[2019-12-26] MEDS: fentaNYL Drip 2500mCg/250mlNS 250 ML IV SCH (13:00)
--- NOTE | 2019-12-26 13:42 | NUR ---
I SPOKE WITH DAUGHTER. FAMILY WON'T BE AVAILABLE UNTIL WEDNESDAY. THEY WILL MAKE A DECISION TO TERMINATE CARE THEN.
[2019-12-26] MEDS: AMIODARONE 450mg/250ml AE 250 ML IV SCH (15:43)
--- NOTE | 2019-12-26 16:10 | NUR ---
Respiratory note: NEW VENT CHANGES PER DR DUNBAR. PCV RR 26, PI 28, PEEP 10, I TIME 1.3. RN SIMEON AWARE OF CHANGES.
[2019-12-26] MEDS ORDERED: TPN PER PHARMACY IV NR ×20 (20:00)
[2019-12-26] MEDS: MEROPENEM 500MG IVPB 50 ML IV SCH (21:36)
[2019-12-26] MEDS ORDERED: MEROPENEM 1GM IVPB 100 ML IV SCH (22:00)
[2019-12-26] MEDS: EPINEPHrine HCL 250 ML IV SCH (22:53)
[2019-12-27] VITALS (103 sets, daily range): BP systolic 66–127; BP diastolic 30–59
[2019-12-27] MEDS: fentaNYL Drip 2500mCg/250mlNS 250 ML IV SCH ×2 (02:00→14:36)
[2019-12-27] MEDS: InsuLIN REG 1unit/0.01ml Soln (100units/ml) SC SCH ×4 (05:54→17:52)
[2019-12-27] MEDS: AMIODARONE 450mg/250ml AE 250 ML IV SCH ×2 (06:00→21:00)
[2019-12-27] MEDS: ACCU-CHEK COMFORT CURVE STRIP VI SCH ×4 (06:00→17:51)
[2019-12-27] MEDS: METOCLOPRAMIDE HCL 5MG/ml INJ 2ml VIAL IV SCH ×2 (06:00)
[2019-12-27] MEDS: LEVALBUTEROL HCL 1.25 MG/3 ML NEB NEB SCH ×3 (06:26→22:21)
[2019-12-27] MEDS: IPRATROPIUM BROM 0.5 MG/2.5ML INH SOL NEB SCH ×3 (06:26→22:21)
[2019-12-27 06:40] LABS: Albumin 1.3 g/dL (3.4-5.0); Calcium 8.2 mg/dL (8.5-10.1); Magnesium 2.1 mg/dL (1.6-2.6); Potassium 4.4 mmol/L (3.5-5.1)
[2019-12-27 06:44] LABS: BUN/Creatinine Ratio 37.7; Phosphorus 4.2 mg/dL (2.5-4.90)
--- NOTE | 2019-12-27 06:53 | NUR ---
RT NOTE: CALL MADE TO Matt DUNN REGARDING CRITICAL ABG VALUES. MESSAGE LEFT. WAITING CALL BACK. RN AWARE.
--- NOTE | 2019-12-27 06:55 | NUR ---
RT NOTE: PAGED FOR HOSPITALIST TO CALL ICU REGARDING CRITICAL ABG RESULTS. WAITING FOR CALL BACK. RN AWARE.
--- NOTE | 2019-12-27 07:24 | NUR ---
RT NOTE: ANOTHER PAGE SENT FOR HOSPITALIST. WAITING FOR CALL BACK.
--- NOTE | 2019-12-27 07:27 | NUR ---
RT NOTE: Fili QUILES CALLED BACK AND GAVE ORDERS TO INCREASE RR TO 30 WITH REPEAT GAS IN 1 HOUR. RN AWARE
--- NOTE | 2019-12-27 07:35 | NUR ---
RT NOTE: RR INCREASED TO 30. WILL CONTINUE TO MONITOR.
--- NOTE | 2019-12-27 07:40 | NUR ---
RT INFORMED ME OF CRITICAL ABG RESULTS. ORDER RECEIVED TO INCREASE RATE TO 30 ON VENT, RT MADE CHANGE.
--- NOTE | 2019-12-27 07:45 | NUR ---
ASSESS- PT. LYING IN BED ON VENT SIZE # 7.5 ET, 20 AT THE LIP, PC-30, PS-22, PEEP-10, FIO2-100%. LUNGS CLEAR STELLA. INSPIRATORY AND EXPIRATORY, DIMINISHED THROUGHOUT. NO GAG/COUGH REFLEX. NO RESPONSE TO ANY STIMULI. ON FENTANYL GTT. AT 200 MCG. AND VERSED GTT. AT 15 MG./HR. NO MOVEMENT OF EXTREMITIES SEEN. CT LT. LATERAL TO 20 CM. H20 SUCTION WITH DSG. D/I WITH SEROUS DRAINAGE. CT RT. ANTERIOR TO 20 CM. H20 SUCTION WITH DSG. D/I WITH SEROSANGINOUS DRAINAGE. CT RT. LATERAL TO 20 CM. H20 SUCTION WITH DSG. D/I WITH SEROSANGINOUS DRAINAGE. OGT TO LIS WITH BILE DRAINAGE. ABD. SOFT, ROUND. BOWEL SOUNDS VERY HYPOACTIVE ALL FOUR QUADRANTS. F/C TO GRAVITY WITH SCANT AMOUNT DK. SHANEKA CLEAR URINE. RADIAL PULSES WEAK, PALPABLE STELLA. DORSALIS PEDAL PULSES WEAK, PALPABLE. NON-PITTING EDEMA ARMS AND HANDS STELLA. NON-PITTING EDEMA LE STELLA. SCD RT. LEG. RECTAL PROBE IN PLACE. PICC EDWINA TLC INTACT. TLC LT. IJ INTACT. A-LINE RT. FEMORAL INTACT WITH GOOD WAVEFORM. PT. IS COVID POSITIVE ON [place]NE PRECAUTIONS, REVERSE ISOLATION. BRUISES TO ARMS STELLA. AND ABD. AREA. DTI TO BUTTOCKS WITH OPTIFOAM DSG. D/I.
--- NOTE | 2019-12-27 08:00 | NUR ---
PT. NOT STABLE TO TURN AT THIS TIME.
--- NOTE | 2019-12-27 09:00 | NUR ---
DTG. CALLED, GAVE PASSWORD, UPDATE OVER PHONE GIVEN ON PT.
--- NOTE | 2019-12-27 09:01 | NUR ---
RT NOTE: MD DUNBAR CALLED REGARDING CRITICAL ABG RESULTS. MESSAGE LEFT. WAITING FOR CALL BACK.
--- NOTE | 2019-12-27 09:16 | NUR ---
RT NOTE: DR POWELL CALLED REGARDING CRITICAL ABG RESULTS. TOLD TO GET A HOLD OF DR HERNANDEZ.
--- NOTE | 2019-12-27 09:19 | NUR ---
RT NOTE: DR BETH CALLED REGARDING CRITICAL ABG RESULTS. STATED PT WAS NOT HIS. RN STATED TO TRY DR SOLO.
--- NOTE | 2019-12-27 09:23 | NUR ---
RT NOTE: DR SOLO PAGED. WAITING FOR CALL BACK.
--- NOTE | 2019-12-27 09:35 | NUR ---
RT NOTE: DR SOLO RETURNED CALL. CRITICAL VALUES REPORTED. DUE TO PT STATUS, NO CHANGES RECOMMENDED AT THIS TIME.
[2019-12-27] MEDS: VASOPRESSIN 50 UNITS in SODIUM CHL 0.9% 247.5 ML IV SCH (09:45)
[2019-12-27] MEDS: SODIUM CHL 0.9% IV SCH (09:45)
[2019-12-27] MEDS: ATRACURIUM BESYLATE IV SCH (09:45)
[2019-12-27] MEDS: ASCORBIC ACID 1,000 MG TAB PO SCH (10:00)
[2019-12-27] MEDS: ZINC SULFATE 220mg CAP or TAB PO SCH (10:00)
[2019-12-27] MEDS: CHOLECALCIFEROL (VITD3) 1,000UNIT=25mCg TAB PO SCH (10:00)
--- NOTE | 2019-12-27 10:00 | NUR ---
PT. HEMODYNAMICALLY UNSTABLE TO TURN.
[2019-12-27] MEDS: PROPOFOL 100 ML IV SCH ×2 (10:15→20:50)
[2019-12-27] MEDS: BUMETANIDE 2.5mg/10ml (0.25 mg/ml) INJ IV SCH (10:16)
[2019-12-27] MEDS: SODIUM CHLOR 0.9% PF (SALINE LOCK) 10ML VIAL/SYR IV SCH ×2 (10:16→21:40)
[2019-12-27] MEDS: FAMOTIDINE (10MG/ML) 2ML VL IV SCH ×2 (10:16→21:40)
[2019-12-27] MEDS: methylPREDNISolone SOD SUCC 40 MG/ML VL IV SCH ×2 (10:17→21:40)
[2019-12-27] MEDS: MEROPENEM 500MG IVPB 50 ML IV SCH ×2 (10:17→21:40)
[2019-12-27] MEDS ORDERED: SODIUM BICARBONATE 8.4 % INJ 50ML VIAL IV ONE (10:30)
--- NOTE | 2019-12-27 12:00 | NUR ---
PT. UNSTABLE TO TURN.
[2019-12-27] MEDS: MIDAZOLAM HCL 50 MG in SODIUM CHL 0.9% 50 ML IV SCH ×3 (12:11→23:00)
--- NOTE | 2019-12-27 13:45 | NUR ---
DR. FRANCOIS Provider/Hospitalist at bedside.
--- NOTE | 2019-12-27 14:00 | NUR ---
PT. UNSTABLE TO TURN AT THIS TIME.
[2019-12-27] MEDS: PHENYLEPHRINE INJ 40 MG in SODIUM CHL 0.9% 250 ML IV SCH (14:36)
--- NOTE | 2019-12-27 15:00 | NUR ---
SYSTOLIC A-LINE BP 100'S TO ONE TEENS. PT. REMAINS ON NEOSYNEPHRINE GTT. AT 120 MCG. AND LEVOPHED GTT. AT 12 MCG. CONTINUING TO MONITOR BP.
--- NOTE | 2019-12-27 16:00 | NUR ---
PT. UNSTABLE TO TURN AT THIS TIME.
--- NOTE | 2019-12-27 18:00 | NUR ---
PT. HEMODYNAMICALLY STABLE TO TURN AT THIS TIME.
--- NOTE | 2019-12-27 18:38 | NUR ---
RT NOTE RECEIVED PT INTUBATED AND ON VENT V21 ON STATED SETTINGS WITH HEATED WIRE CIRCUIT. VENT IS PLUGGED TO RED OUTLET. ALARMS ARE ON AND AUDIBLE TO NURSING. AMBU BAG AT BEDSIDE AND CONNECTED TO O2 SOURCE. 7.5 ETT IS SECURED WITH ANCHORFAST AT 20CM TO THE ORAL LEFT.PT HAS 3 CHEST TUBES NOTED. ALSO, A RIGHT FEMORAL ART LINE. PT TEMP 99.1, CIRCUIT TEMP 35.0 WATER LEVEL IS ADEQUATE, etCO2 29, POX 95% Addendum: 12/27/19 at 1845 by Wendy Stevens RT Amended: Links added.
--- NOTE | 2019-12-27 19:30 | NUR ---
OPENING SHIFT RECEIVED REPORT FROM DAY SHIFT RN. ASSUMED CARE OF PATIENT. PATIENT INTUBATED AND SEDATED WITH NO SIGNS OR SYMPTOMS OF SOB, PAIN OR DISTRESS. HYPOACTIVE COUGH AND GAG. RIGHT UPPER ARM PICC TLC, LEFT INTERNAL JUGULAR TLC AND RIGHT FEMORAL ARTERIAL LINE - CLEAN/DRY/INTACT. LEFT LATERAL CHEST TUBE, RIGHT LATERAL CHEST TUBE, AND RIGHT ANTERIOR CHEST TUBE - PATENT AND DRAINING APPROPRIATELY, NO SIGNS OF CREPITUS OR LEAKS. GREEN HUNG TO GRAVITY. SEDATION: FENTANYL - 200MCG/HR VERSED - 15MG/HR VASOPRESSORS: LEVOPHED - 16MCG/MIN NEOSYNEPHRINE - 140MCG/MIN AMIODARONE - 0.5MG/MIN REPOSITIONED FOR COMFORT. BED IN LOWEST POSITION, SIDE RAILS UPX2. WILL CONTINUE TO MONITOR.
[2019-12-27] MEDS ORDERED: TPN PER PHARMACY IV NR ×8 (20:00)
--- NOTE | 2019-12-27 20:05 | NUR ---
RT NOTE ROUTINE VENT CHECK DONE. PT INTUBATED AND ON VENT V21 ON STATED SETTINGS WITH HEATED WIRE CIRCUIT. VENT IS PLUGGED TO RED OUTLET. ALARMS ARE ON AND AUDIBLE TO NURSING. AMBU BAG AT BEDSIDE AND CONNECTED TO O2 SOURCE. 7.5 ETT IS SECURED WITH ANCHORFAST AT 20CM TO THE ORAL LEFT.PT HAS 3 CHEST TUBES NOTED. ALSO, A RIGHT FEMORAL ART LINE. PT TEMP 99.3, CIRCUIT TEMP 35.0 WATER LEVEL IS ADEQUATE, etCO2 38, POX 96% Addendum: 12/27/19 at 2033 by Wendy Stevens RT Amended: Links added.
[2019-12-27] MEDS: NOREPINEPHRINE 8 MG/250ML KIT 250 ML IV SCH (21:30)
--- NOTE | 2019-12-27 22:41 | NUR ---
RT NOTE ROUTINE VENT CHECK DONE. PT INTUBATED AND ON VENT V21 ON STATED SETTINGS WITH HEATED WIRE CIRCUIT. VENT IS PLUGGED TO RED OUTLET. ALARMS ARE ON AND AUDIBLE TO NURSING. AMBU BAG AT BEDSIDE AND CONNECTED TO O2 SOURCE. 7.5 ETT IS SECURED WITH ANCHORFAST AT 20CM TO THE ORAL RIGHT.PT HAS 3 CHEST TUBES NOTED. ALSO, A RIGHT FEMORAL ART LINE. BS ARE CTA. HHN GIVEN INLINE WITH 0.63 MG XOPENEX AND 0.5 MG ATROVENT VIA AEROGEN WITHOUT ADVERSE REACTION. etCO2 MONITORING REPLACED DUE TO INACCURATE READING AND SAMPLE LINE AND CUP FULL OF WATER. PT WAS SUCTIONED FOR SCANT RETURN. PT TEMP 99.5, CIRCUIT TEMP 35.0 WATER LEVEL IS ADEQUATE, etCO2 35, POX 96% Addendum: 12/27/19 at 2242 by Wendy Stevens RT Amended: Links added.
[2019-12-27] MEDS: EPINEPHrine HCL 250 ML IV SCH (22:53)
[2019-12-28] VITALS (101 sets, daily range): BP systolic 73–180; BP diastolic 18–86
--- NOTE | 2019-12-28 00:05 | NUR ---
RT NOTE ROUTINE VENT CHECK DONE. PT INTUBATED AND ON VENT V21 ON STATED SETTINGS WITH HEATED WIRE CIRCUIT. VENT IS PLUGGED TO RED OUTLET. ALARMS ARE ON AND AUDIBLE TO NURSING. AMBU BAG AT BEDSIDE AND CONNECTED TO O2 SOURCE. 7.5 ETT IS SECURED WITH ANCHORFAST AT 20CM TO THE ORAL RIGHT.PT HAS 3 CHEST TUBES NOTED. ALSO, A RIGHT FEMORAL ART LINE. PT TEMP 99.5, CIRCUIT TEMP 35.0 WATER LEVEL IS ADEQUATE, etCO2 34, POX 94% Addendum: 12/28/19 at 0053 by Wendy Stevens RT Amended: Links added.
[2019-12-28] MEDS: fentaNYL Drip 2500mCg/250mlNS 250 ML IV SCH (02:00)
--- NOTE | 2019-12-28 02:04 | NUR ---
RT NOTE ROUTINE VENT CHECK DONE. PT INTUBATED AND ON VENT V21 ON STATED SETTINGS WITH HEATED WIRE CIRCUIT. VENT IS PLUGGED TO RED OUTLET. ALARMS ARE ON AND AUDIBLE TO NURSING. AMBU BAG AT BEDSIDE AND CONNECTED TO O2 SOURCE. 7.5 ETT IS SECURED WITH ANCHORFAST AT 20CM TO THE ORAL RIGHT.PT HAS 3 CHEST TUBES NOTED AND A RIGHT FEMORAL ART LINE. PT TEMP 99.1, CIRCUIT TEMP 35.0 WATER LEVEL IS ADEQUATE, etCO2 33, POX 96% Addendum: 12/28/19 at 0224 by Wendy Stevens RT Amended: Links added.
--- NOTE | 2019-12-28 04:20 | NUR ---
RT NOTE ROUTINE VENT CHECK DONE. PT INTUBATED AND ON VENT V21 ON STATED SETTINGS WITH HEATED WIRE CIRCUIT. VENT IS PLUGGED TO RED OUTLET. ALARMS ARE ON AND AUDIBLE TO NURSING. AMBU BAG AT BEDSIDE AND CONNECTED TO O2 SOURCE. 7.5 ETT IS SECURED WITH ANCHORFAST AT 20CM TO THE ORAL RIGHT.PT HAS 3 CHEST TUBES NOTED. ALSO, A RIGHT FEMORAL ART LINE. PT TEMP 99.0, CIRCUIT TEMP 35.0 WATER LEVEL IS ADEQUATE, etCO2 32, POX 95% Addendum: 12/28/19 at 0420 by Wendy Stevens RT Amended: Links added.
[2019-12-28] MEDS: MIDAZOLAM HCL 50 MG in SODIUM CHL 0.9% 50 ML IV SCH ×2 (06:00→21:13)
[2019-12-28] MEDS: NOREPINEPHRINE 8 MG/250ML KIT 250 ML IV SCH ×3 (06:00→22:18)
[2019-12-28] MEDS: PHENYLEPHRINE INJ 40 MG in SODIUM CHL 0.9% 250 ML IV SCH ×2 (06:00→20:24)
[2019-12-28 06:24] LABS: Potassium 4.3 mmol/L (3.5-5.1)
[2019-12-28] MEDS: ACCU-CHEK COMFORT CURVE STRIP VI SCH ×4 (06:30→18:30)
[2019-12-28] MEDS: InsuLIN REG 1unit/0.01ml Soln (100units/ml) SC SCH ×4 (06:30→18:30)
[2019-12-28 06:43] LABS: Albumin 1.1 g/dL (3.4-5.0); BUN/Creatinine Ratio 39.3; Bilirubin, Total 1.2 mg/dL (0.2-1.0); Calcium 8.1 mg/dL (8.5-10.1); Magnesium 2.2 mg/dL (1.6-2.6); Phosphorus 3.7 mg/dL (2.5-4.90); Total Protein 3.9 g/dL (6.4-8.2)
--- NOTE | 2019-12-28 07:10 | NUR ---
END OF SHIFT REPORT GIVEN TO DAY SHIFT RNArnav [email or web address] ENDORSED.
--- NOTE | 2019-12-28 07:30 | NUR ---
REPORT REPORT RECEIVED FROM NIGHT RNTOM. VIEWED PT THROUGH THE GLASS DOOR SHE IS IN ISOLATION FOR + COVID. PT INTUBATED AND SEDATED AND ON LEVOPHED FOR BP SUPPORT. CONTINUE TO MONITOR.
[2019-12-28] MEDS: LEVALBUTEROL HCL 1.25 MG/3 ML NEB NEB SCH ×2 (08:15→22:23)
[2019-12-28] MEDS: IPRATROPIUM BROM 0.5 MG/2.5ML INH SOL NEB SCH ×2 (08:15→22:23)
--- NOTE | 2019-12-28 08:40 | NUR ---
PT TEACHING PT UNABLE TO BENEFIT FROM PT TEACHING AT THIS TIME SHE IS SEDATED WHILE INTUBATED Addendum: 12/28/19 at 2030 by Emma Batista RN Amended: Links added.
--- NOTE | 2019-12-28 08:40 | NUR ---
ASSESSMENT PT IN ISOLATION FOR + COVID. PT RESTING IN BED WITH EYES CLOSED AND NO SPONTANEOUS MOVEMENT NOTED. SEDATED AND ON THE VENTILATOR WITH SETTINGS OF : 7.5 ETT/20 AT THE LIP, PRESSURE CONTROL MODE WITH PRESSURE OF 28 AND RATE OF 30, 90% FIO2 , AND PEEP OF 10. LUNGS CLEAR AND DIMINISHED WITH INSPIRATORY WHEEZING NOTED IN THE UPPER LOBES. O2 SAT OF 96%. CHEST TUBES X3, TO THE RIGHT UPPER CHEST, TO 30 CM SUCTION, DRAINING PINK TINGED FLUID, RIGHT LATERAL, TO 20 CM SUCTION, DRAINING BROWN RED FLUID, AND TO THE LEFT LATERAL, TO 20 CM SUCTION, DRAINING PINK TINGED FLUID. ALL DRESSINGS TO CHEST TUBES, CLEAN AND DRY. TELE ST 119, WITH DEPRESSED ST IN LEAD II. WEAK PALPABLE PULSES TO ALL EXTREMITIES WITH +3 NON PITTING EDEMA TO BUE AND BLE. SCD TO THE RIGHT L CALF, BP CUFF TO THE R CALF. ABD DISTENDED WTIH FEW BOWEL SOUNDS NOTED. OGT WITH + PLACEMENT AND NO RESIDUAL NOTED. RIGHT FEMORAL A LINE , ABLE TO PULL BLOOD OFF BUT EVEN AFTER ZEROING , UNABLE TO GET A DECENT WAVEFORM. UNRELIABLE BP RESULTS. IVF TO RUE 2 LUMEN PICC LINE AND LIJ TLC, BOTH SITES BENIGN. BRUISING NOTED TO BOTH ARMS. PT WITH SMALL TURN TO THE RIGHT SIDE. SACRAL OPTIFOAM IN PLACE WITH 2 SKIN TEARS NOTED. BED IN LOW POSITION AND RAILS UP X4 FOR PT SAFETY. CONTINUE TO MONITOR.
[2019-12-28] MEDS: ATRACURIUM BESYLATE IV SCH (09:45)
[2019-12-28] MEDS: SODIUM CHL 0.9% IV SCH (09:45)
[2019-12-28] MEDS: VASOPRESSIN 50 UNITS in SODIUM CHL 0.9% 247.5 ML IV SCH ×2 (09:45→20:45)
[2019-12-28] MEDS: methylPREDNISolone SOD SUCC 40 MG/ML VL IV SCH ×2 (10:37→21:12)
[2019-12-28] MEDS: BUMETANIDE 2.5mg/10ml (0.25 mg/ml) INJ IV SCH (10:37)
[2019-12-28] MEDS: FAMOTIDINE (10MG/ML) 2ML VL IV SCH ×2 (10:37→21:11)
[2019-12-28] MEDS: SODIUM CHLOR 0.9% PF (SALINE LOCK) 10ML VIAL/SYR IV SCH ×2 (10:38→21:11)
[2019-12-28] MEDS ORDERED: PHENYLEPHRINE HCL 10 MG/ML VL ONE (10:58)
--- NOTE | 2019-12-28 11:00 | NUR ---
PT RESTING IN BED WITH VSS. TURNED FOR COMFORT.
[2019-12-28] MEDS: MEROPENEM 500MG IVPB 50 ML IV SCH ×2 (11:04→21:10)
[2019-12-28] MEDS: AMIODARONE 450mg/250ml AE 250 ML IV SCH (11:56)
--- NOTE | 2019-12-28 12:00 | NUR ---
ACCUCHECK OF 155 AND GIVEN 2 UNITS OF REGULAR INSULIN COVERAGE PER MD ORDERS. CONTINUE TO MONITOR.
--- NOTE | 2019-12-28 14:59 | NUR ---
FAMILY RECEIVED A PHONE CALL FROM PT'S DAUGHTER, GURJIT. AFTER VERIFYING THE PASSWORD, I UPDATED HER ON HER MOTHER'S CONDITION AND POC. SHE WOULD LIKE DR SOLO TO CONTACT HER BROTHER, ABEL , TO UPDATE HIM. I LET HER KNOW THAT DR SOLO HAS NOT BEEN IN YET, BUT THAT I WILL GIVE HIM THE MESSAGE.
--- NOTE | 2019-12-28 15:02 | NUR ---
Nutrition Followup Notes Wt: 82.1 kg Pt`s covid +. Pt intubated and sedated with Fentanyl. Pt with TPN @ 45 ml/hr, providing 1050 kcals, 50g protein, and 810 NPCs. Pt with inadequate energy intake from PN support aeb 75% to 85% of est caloric needs. Protein intake from PN support is adequate aeb 89% to 119% protein needs. Noted family is deciding on compassionate weaning. Will f/u in 2-3 days. Est Energy needs: 4080-6715 kcals (20-23 kcal/kgBW), Est Protein needs: 42-56 gms/day (0.6-0.8 gm/kgBW r/t elevated RFT). Will continue to monitor and reassess prn. Labs: BUN 94H, Creat 2.39H, GFR 22 L, Alb 1.1L, GLUC 147H, AST 112 H, ALT 125 H, Alk Phos 163 H BM: Pt had no BM today. Last BM noted on 11/30 per RN doc Skin: BS 12, high risk, full wound care details in RN doc PES: 1) Inadequate oral intake aeb pt with ave of 38% PO intake over 4 meals r/t pt with a poor appetite 2) Altered nutrition related lab values aeb hyperglycemia, hypocalcemia, elev LFTs, elev Alk Phos, mod hypoalbuminemia r/t current medical condition Comments Will continue to closely monitor pertinent labs, PO status and skin status prn. Will followup in 2-3 days 1) Continue TPN to meet >75% of needs, consider TF if GI is accessible and depending on residuals. 2) Advance diet as medically feasible 3) Continue current plan of care
--- NOTE | 2019-12-28 16:46 | NUR ---
MD VISIT DR Luis Miguel REGAN ROUNDING FOR DR SOLO. UPDATED HIM ON THE PT'S CURRENT STATUS AND LET HIM KNOW THAT THE PT'S DAUGHTER , GURJIT, IS ASKING FOR MD TO CONTACT HER BROTHER ABEL TO GIVE AN UPDATE AND PROGNOSIS. DR REGAN STATED THAT DR SOLO WILL BE BACK TOMORROW AND WILL CONTACT ABEL AT THAT TIME. WILL CALL AND NOTIFY PT'S DAUGHTER OF THAT.
--- NOTE | 2019-12-28 17:36 | NUR ---
FAMILY SPOKE WITH PT'S DAUGHTER, GURJIT, AND LET HER KNOW THAT DR SOLO HAD ANOTHER MD COVERING FOR HIM TODAY. DR SOLO WILL BE BACK TOMORROW AND I WILL ASK HIM TO CALL HER BROTHER THEN. PLACED A NOTE ON THE FRONT OF THE PT'S CHART WITH THE CONTACT INFO FOR THE PT'S SON.
--- NOTE | 2019-12-28 19:16 | NUR ---
Opening Shift Note Assumed care of patient who is sedated and intubated. RASS is -5. Bed is in lowest position and locked. Call light within reach. Board updated. Patient on continuous EKG and pulse oximetry monitor. A-line is available but is not picking up pulses or BP at this time. No S/S of distress/SOB or pain. Patient on AC ventilation and settings match ventilation order. Will continue to monitor for changes Q1hr and PRN.
--- NOTE | 2019-12-28 19:20 | NUR ---
REPORT REPORT GIVEN TO THAD FERREIRA, JHON RIDER. CHECKED ON PT THROUGH THE GLASS DOOR.
[2019-12-28] MEDS ORDERED: TPN PER PHARMACY IV NR ×9 (20:00)
[2019-12-28] MEDS: PROPOFOL 100 ML IV SCH (20:50)
--- NOTE | 2019-12-28 21:00 | NUR ---
Unable to perform sedation vacation at this time. Patient is too hemodynamically unstable and requires 90% FiO2. Current BP is 89/40 with MAP of 55. Addendum: 12/29/19 at 0008 by TERESO FERRARI RN Amended: Links added.
--- NOTE | 2019-12-28 21:12 | NUR ---
Charge nurse Param was able to successfully zero A-line and BP reading matches reading from right leg BP cuff. Will continue to assess.
[2019-12-28] MEDS: EPINEPHrine HCL 250 ML IV SCH ×2 (22:53→23:18)
[2019-12-29] VITALS (84 sets, daily range): BP systolic 72–133; BP diastolic 15–87
[2019-12-29] MEDS: InsuLIN REG 1unit/0.01ml Soln (100units/ml) SC SCH ×2 (00:41→06:45)
--- NOTE | 2019-12-29 00:41 | NUR ---
Sterile dressing change performed on right PICC line and left IJ catheter using sterile technique. Patient tolerated well.
[2019-12-29] MEDS: ACCU-CHEK COMFORT CURVE STRIP VI SCH ×3 (00:45→13:01)
[2019-12-29] MEDS: AMIODARONE 450mg/250ml AE 250 ML IV SCH (01:24)
--- NOTE | 2019-12-29 04:00 | NUR ---
Bed bath and complete linen change performed. Patient tolerated well.
[2019-12-29 04:56] LABS: Hematocrit 20.1 % (36.0-46.0); Mean Corpuscular Hemoglobin 30.8 pg (28.0-32.0); Mean Corpuscular Hgb Conc. 31.8 g/dL (32.0-36.0); Platelet Count (auto) 116 10^3/uL (140-450); Red Blood Cells 2.07 10^6/uL (4.0-5.20); Red Cell Distribution Width 16.6 % (11.8-14.3); White Blood Cell 23.4 10^3/uL (4.4-10.8)
[2019-12-29 05:01] LABS: Hemoglobin 6.4 g/dL (12.2-16.2)
[2019-12-29 05:03] LABS: Basophils % (manual) 0 (0.0-2.0); Blast Cells 0; Eosinophils % (manual) 0 (0-7); Promyelocytes % 0; Reactive Lymphocytes 0
[2019-12-29 05:10] LABS: Band Neutrophils % (manual) 8; Lymphocytes % (manual) 11 (10.0-50.0); Metamyelocytes % 2; Monocytes % (manual) 1 (0-12); Myelocytes % 2
[2019-12-29 05:12] LABS: INR 1.15 (0.9-1.15); Magnesium 2.4 mg/dL (1.6-2.6); Partial Thromboplastin Time 42.7 sec (23.64-32.05); Potassium 4.6 mmol/L (3.5-5.1)
[2019-12-29 05:15] LABS: BUN/Creatinine Ratio 39.1; Bilirubin, Total 1.2 mg/dL (0.2-1.0); Phosphorus 4.5 mg/dL (2.5-4.90); Total Protein 3.8 g/dL (6.4-8.2)
--- NOTE | 2019-12-29 05:41 | NUR ---
Spoke to MD Estrella and notified him of critical BUN (101) and HGB (6.4). Orders received: transfuse one unit of packed red blood cells now. Informed of low urine output (15 mls/hr).
[2019-12-29] MEDS: LEVALBUTEROL HCL 1.25 MG/3 ML NEB NEB SCH (06:28)
[2019-12-29] MEDS: IPRATROPIUM BROM 0.5 MG/2.5ML INH SOL NEB SCH (06:28)
[2019-12-29] MEDS: fentaNYL Drip 2500mCg/250mlNS 250 ML IV SCH (06:30)
--- NOTE | 2019-12-29 07:15 | NUR ---
REPORT REPORT RECEIVED FROM THAD RNTERESO. CHECKED ON PT THROUGH GLASS DOOR. PT ON ISOLATION FOR + COVID. CONTINUE TO MONITOR.
--- NOTE | 2019-12-29 07:15 | NUR ---
Report given to day shift RN. Patient exhibiting no signs of distress or SOB.
--- NOTE | 2019-12-29 08:30 | NUR ---
ASSESSMENT PT IN ISOLATION FOR +COVID. PT SEDATED WHILE ON THE VENTILATOR. PUPILS 6 AND FIXED. NO SPONTANEOUS MOVEMENT NOTED. VENT SETTINGS: 7.5 ETT/22 AT THE LIP, PRESSURE CONTROL MODE WITH PRESSURE OF 28, RATE O 30, 100% FIO2 AND PEEP OF 10. LUNGS CLEAR AND DIMINISHED THROUGHOUT. CHEST TUBE TO THE RIGHT UPPER CHEST, DRAINING STRAW COLORED FLUID. RIGHT LATERAL CHEST TUBE DRAINING SEROSANGUINOUS FLUID, AND LEFT LATERAL CHEST TUBE DRAINING STRAW COLORED FLUID. ALL CHEST TUBED WITH DRESSINGS CLEAN EXCEPT THE RIGHT ANTERIOR CHEST DRESSING WHICH HAS SOME YELLOW FLUID FROM WHERE HER SKIN IS WEEPING. NO AIR LEAK OR CREPITUS NOTED. TELE ST 108. +3 PITTING EDEMA(PE) TO RIGHT HAND, +2 PE TO THE RIGHT HAND AND BOTH LOWER LEGS AND FEET. WEAK PALPABLE PULSES. ABD SOFT WITH NO BOWEL SOUNDS NOTED. OGT WITH + PLACEMENT AND 30 ML RESIDUAL NOTED. GREEN CATHETER DRAINING DARK TEA COLORED URINE. PT WITH EDEMA GENERALIZED , INCLUDING TO HER FACE AND RIGHT EYE DIFFICULT TO OPEN. REPOSITIONED IN BED .RAILS DUP X4 AND BED IN LOW POSITION FOR PT SAFETY. CONTINUE TO MONITOR.
[2019-12-29] MEDS: ATRACURIUM BESYLATE IV SCH (09:45)
[2019-12-29] MEDS: SODIUM CHL 0.9% IV SCH (09:45)
[2019-12-29] MEDS: FAMOTIDINE (10MG/ML) 2ML VL IV SCH (11:00)
[2019-12-29] MEDS: SODIUM CHLOR 0.9% PF (SALINE LOCK) 10ML VIAL/SYR IV SCH (11:00)
[2019-12-29] MEDS: methylPREDNISolone SOD SUCC 40 MG/ML VL IV SCH (11:00)
[2019-12-29] MEDS: MEROPENEM 500MG IVPB 50 ML IV SCH (11:00)
[2019-12-29] MEDS ORDERED: MIDAZOLAM DRIP 50 mg/50mL 50 ML IV ONE (11:07)
--- NOTE | 2019-12-29 11:20 | NUR ---
FAMILY CALLED AND SPOKE WITH PT'S DAUGHTER, GURJIT, AND UPDATED HER ON THE PT'S CURRENT CONDITION
--- NOTE | 2019-12-29 11:30 | NUR ---
SPOKE WITH DR SOLO AND UPDATED HIM ON THE PT'S REQUEST THAT HE SPEAK WITH THE PT'S SON. HE WANTS THE SON TO SEE THE PT FIRST AND THEN HE WILL COME AND SPEAK WITH HIM. CALLED AND LET THE DAUGHTER KNOW. SHE IA ASKING TO COME AROUND 1600 WITH HER FATHER AND 2 BROTHERS AND SHE IS REQUESTING A MARKET RESEARCH ANALYST. CALLED AND SPOKE WITH ICU DIRECTOR, SANIA. SHE WILL FIND OUT IF WE CAN HAVE A MARKET RESEARCH ANALYST COME TO A COVID ROOM..
--- NOTE | 2019-12-29 11:30 | NUR ---
CALLED AND LEFT A MESSAGE FOR DR SOLO, REQUESTING THAT HE CALL PT'S SON ABEL TO GIVE HIM INFO REGARDING THE PT'S CONDITION AND PROGNOSIS. ABEL [phone]
[2019-12-29] MEDS ORDERED: NOREPINEPHRINE BITARTRATE 2 ML IV ONE (12:46)
--- NOTE | 2019-12-29 14:32 | NUR ---
MD VISIT DR SOLO HERE AND SIGNED THE PAPERWORK FOR TERMINAL WEAN. WAITING FOR FAMILY TO COME IN. TRYING TO ARRANGE FOR A FORENSIC CHEMIST. Addendum: 12/29/19 at 1525 by Emma Batista RN PER DR SOLO , DO NOT ADMINISTER ORDERED UNIT OF PRBC.
--- NOTE | 2019-12-29 18:00 | NUR ---
FAMILY IN TO THE BEDSIDE, OKAYED BY ADMINISTRATION.
--- NOTE | 2019-12-29 19:00 | NUR ---
REPORT REPORT GIVEN TO TERESO ONEIL RN. TO THE ROOM AND VISUALIZED PT THROUGH GLASS DOOR. FAMILY READY FOR TERMINAL WEAN. FAMILY MEMBERS WANT TO BE OUTSIDE THE ROOM FOR TERMINAL WEAN . NOTIFIED TERESO ONEIL RN, AND STEPAN ONEIL RN.
--- NOTE | 2019-12-29 19:20 | NUR ---
Placed orders for Morphine 4 mg IV q 1 hrs PRN pain and Ativan 2 mg IV q 1 hrs PRN anxiety per written order on Code status form signed by MD Adams. Addendum: 12/29/19 at 192 by TERESO FERRARI RN In preperation for terminal wean
[2019-12-29] MEDS ORDERED: MORPHINE SULFATE 4 MG/ML SYR/VIAL IV PRN (19:30)
[2019-12-29] MEDS ORDERED: LORazepam 2MG/ML-1ML VIAL IV PRN (19:30)
[2019-12-29] MEDS ORDERED: TPN PER PHARMACY IV NR ×7 (20:00)
--- NOTE | 2019-12-29 20:00 | NUR ---
RT NOTE RT TERMINAL WEANED PT PER ORDER. JHON RIDER AT BEDSIDE. PT TAKEN OFF VENT SUPPORT AND EXTUBATED WITHOUT ISSUE. PT FAMILY OUTSIDE ROOM DOOR.
--- NOTE | 2019-12-29 20:00 | NUR ---
Patient extubated by RT Nikunj. No complications at this time. Family at doorside.
--- NOTE | 2019-12-29 20:33 | NUR ---
Notified [facility]'s office of patient's to notify food products tester. Patient information given including name and date of . Ink Maker paged and will call back. Awaiting call back.
--- NOTE | 2019-12-29 20:38 | NUR ---
Called [facility] and notified them of patient's . Gave patient information including that patient was COVID positive at time of . [facility] will not be moving forward with organ procurement. Case #: [id number].
--- NOTE | 2019-12-29 22:09 | NUR ---
Received a callback from merchandise complaint adjuster. Spoke to Clarke Chavez and answered questions regarding patient's admission, COVID diagnosis, and progression of diseases while in hospital. Refinery Operator Alkylation gave me clearance to release body to mortuary but could not give me a case number or release number. According to Refinery Operator Alkylation, he must submit information after certificate has been signed, and then a case number can be assigned.
--- NOTE | 2019-12-29 22:29 | NUR ---
Called Project Account Manager's Office again and repaged to speak to python developer for reference number. Awaiting call back.
--- NOTE | 2019-12-29 22:58 | NUR ---
Spoke to Clarke Chavez again, who is the Professional System Administrator Jitterbug Operator. According to him, case numbers have been delayed for COVID positive patients. Verbal authorization is all that is needed to release patient, which he has given. I took down his name and phone number and gave to dye house vat worker. Will prep body now for release to mortuary.
--- NOTE | 2019-12-30 01:18 | NUR ---
Patient placed into body bag. Chest tube drains, PICC, A-Line, caldwell catheter, and central lines removed. Toe tag and bag tag placed. Patient had no person items with her. [place] [facility] [place]
--- NOTE | 2019-12-30 02:22 | NUR ---
Patient moved to [facility] [place] accompanied by RN, security, and EVS staff.
== END 2019-12-29 | disposition expired | DRG 720 ==
LOC: ER 00:35 → TELE 00:36 → TELE-EAST 09:54 → DOU IN ICU 17:38 → ICU WEST 12-01 22:12
PROVIDERS: ADMIT Nurse Practitioner; ATTEND Internal Medicine
PROC: 5A09357 Assistance with Respiratory Ventilation, Less than 24 Consecutive Hours, Continuous Positive Airway Pressure (ICD-10-PCS; 2019-11-24)
PROC: 5A09357 Assistance with Respiratory Ventilation, Less than 24 Consecutive Hours, Continuous Positive Airway Pressure (ICD-10-PCS; 2019-11-26)
PROC: 5A1955Z Respiratory Ventilation, Greater than 96 Consecutive Hours (ICD-10-PCS; principal; 2019-12-01)
PROC: 0BH17EZ Insertion of Endotracheal Airway into Trachea, Via Natural or Artificial Opening (ICD-10-PCS; 2019-12-01)
PROC: 02HV33Z Insertion of Infusion Device into Superior Vena Cava, Percutaneous Approach (ICD-10-PCS; 2019-12-01)
PROC: B548ZZA Ultrasonography of Superior Vena Cava, Guidance (ICD-10-PCS; 2019-12-01)
PROC: 5A09357 Assistance with Respiratory Ventilation, Less than 24 Consecutive Hours, Continuous Positive Airway Pressure (ICD-10-PCS; 2019-12-01)
PROC: 03HY32Z Insertion of Monitoring Device into Upper Artery, Percutaneous Approach (ICD-10-PCS; 2019-12-02)
PROC: 30233N1 Transfusion of Nonautologous Red Blood Cells into Peripheral Vein, Percutaneous Approach (ICD-10-PCS; 2019-12-04)
PROC: 0W9900Z Drainage of Right Pleural Cavity with Drainage Device, Open Approach (ICD-10-PCS; 2019-12-05)
PROC: 04HY32Z Insertion of Monitoring Device into Lower Artery, Percutaneous Approach (ICD-10-PCS; 2019-12-07)
DX: A41.89 Other specified sepsis (principal); U07.1 COVID-19; R65.21 Severe sepsis with septic shock; G93.41 Metabolic encephalopathy; E87.3 Alkalosis; J12.89 Other viral pneumonia; E22.2 Syndrome of inappropriate secretion of antidiuretic hormone; N17.9 Acute kidney failure, unspecified; J98.2 Interstitial emphysema; I50.9 Heart failure, unspecified; J96.01 Acute respiratory failure with hypoxia; J45.901 Unspecified asthma with (acute) exacerbation; K76.0 Fatty (change of) liver, not elsewhere classified; E83.39 Other disorders of phosphorus metabolism; E83.42 Hypomagnesemia; E88.09 Other disorders of plasma-protein metabolism, not elsewhere classified; J98.11 Atelectasis; R04.0 Epistaxis; E87.6 Hypokalemia; E83.51 Hypocalcemia; D63.8 Anemia in other chronic diseases classified elsewhere; E87.4 Mixed disorder of acid-base balance; Z99.11 Dependence on respirator [ventilator] status; I11.0 Hypertensive heart disease with heart failure; J93.83 Other pneumothorax
CPT/HCPCS: 36415; 36569; 36600; 71045; 74018; 76705; 80048; 80053; 80076; 80202; 81001; 82040; 82570; 82607; 82668; 82728; 82746; 82805; 82962; 83010; 83036; 83540; 83550; 83605; 83615; 83735; 83880; 83935; 84100; 84132; 84156; 84300; 84439; 84443; 84478; 85007; 85014; 85018; 85025; 85027; 85045; 85379; 85610; 85652; 85730; 86141; 86850; 86880; 86885; 86900; 86901; 86920; 87040; 87070; 87086; 87205; 87804; 87880; 93005; 93970; 94002; 94003; 94640; 94660; 94762; 96365; 96366; 96368; 96375; A4618; C9113; G0378; J0171; J0330; J0610; J0696; J1100; J1815; J2185; J2250; J2405; J2543; J2704; J3480; J3490; J7060